=== PATIENT | male | born 1940 | race Caucasian/White ===

== ENCOUNTER 2020-02-17 08:03 | Outpatient (REF) | payer MEDICARE, SELFPAY ==
[2020-02-17 08:25] LABS: Basophils Absolute Auto 0.2 X10*3/uL (0.0-0.2); Basophils Percent Auto 1.4 % (0-2); Eosinophils Absolute Auto 0.4 X10*3/uL (0.0-0.4); Eosinophils Percent Auto 2.9 % (0-4); Hematocrit 45.7 % (42-52); Hemoglobin 13.7 g/dl (14.0-18.0); Imm Gran Abs Auto 0.14 X10*3/uL (0.00-0.03); Lymphocytes Absolute Auto 2.5 X10*3/uL (1.2-4.9); Lymphocytes Percent Auto 17.1 % (20-40); MANUAL DIFF FLAG NO; Mean Corpuscular Hemoglobin 23.3 pg (27.0-33.0); Mean Corpuscular Volume 77.7 fL (80-98); Mean Platelet Volume 9.9 fL (9.4-12.4); Monocytes Absolute Auto 1.1 X10*3/uL (0.1-1.2); Monocytes Percent Auto 7.5 % (2-11); Neutrophils Absolute Auto 10.3 X10*3/uL (2.0-8.3); Neutrophils Percent Auto 70.1 % (45-73); Platelet Count 560 X10*3/uL (160-400); Red Blood Count 5.88 X10*6/uL (4.60-5.80); Red Cell Distribution Width 19.2 % (11.0-16.0); White Blood Count 14.6 X10*3/uL (4.8-10.8)
== END 2020-02-17 08:04 | disposition home or self-care (01) ==
LOC: HO.BBR 08:03
PROVIDERS: Visit Provider Internal Medicine Medical Oncology
DX: D45 Polycythemia vera (principal)
CPT/HCPCS: 36415; 85018; 85025; 99195

== ENCOUNTER 2020-03-16 08:03 | Outpatient (REF) | payer MEDICARE, SELFPAY | END 2020-03-16 08:04 | disposition home or self-care (01) | LOC: HO.BBR 08:03 | PROVIDERS: PCP Internal Medicine; Visit Provider Internal Medicine | DX: D45 Polycythemia vera (principal) | CPT/HCPCS: 85014; 85018; 99195 ==

== ENCOUNTER → 2020-03-29 09:41 | Outpatient (BNVA) | payer MEDICARE, SELFPAY | PROVIDERS: PCP Internal Medicine; Visit Provider Urology | DX: Z85.51 Personal history of malignant neoplasm of bladder (principal) | CPT/HCPCS: 52000; 81002; 99212 ==

== ENCOUNTER 2020-03-30 14:38 | Outpatient (REF) | payer MEDICARE, SELFPAY ==
[2020-03-30 14:40] LABS: Urine Cytology See Pathology rpt
== END 2020-03-30 14:39 | disposition home or self-care (01) ==
LOC: HO.LNP 14:38
PROVIDERS: Visit Provider Urology
DX: C67.9 Malignant neoplasm of bladder, unspecified (principal)
CPT/HCPCS: 88112

== ENCOUNTER 2020-05-11 08:06 | Outpatient (REF) | payer MEDICARE, SELFPAY | END 2020-05-11 08:07 | disposition home or self-care (01) | LOC: HO.BBR 08:06 | PROVIDERS: Visit Provider Internal Medicine | DX: D45 Polycythemia vera (principal) | CPT/HCPCS: 85018; 99195 ==

== ENCOUNTER 2020-06-08 08:05 | Outpatient (REF) | payer MEDICARE, SELFPAY | END 2020-06-08 08:06 | disposition home or self-care (01) | LOC: HO.BBR 08:05 | PROVIDERS: Visit Provider Internal Medicine | DX: D45 Polycythemia vera (principal) | CPT/HCPCS: 85014; 85018; 99195 ==

== ENCOUNTER → 2020-06-28 09:54 | Outpatient (BNVA) | payer MEDICARE, SELFPAY | PROVIDERS: PCP Internal Medicine; Visit Provider Urology | DX: N39.0 Urinary tract infection, site not specified (principal) | CPT/HCPCS: 81002; 99212 ==

== ENCOUNTER 2020-07-01 13:46 | Outpatient (REF) | payer MEDICARE, SELFPAY ==
[2020-07-01 16:59] LABS: Anion Gap 19 (12-20); Blood Urea Nitrogen 25 mg/dL (9-16); Carbon Dioxide 19 mmol/L (22-29); Chloride 107 mmol/L (96-108); Estimated Glomerular Filt Rate 55; Potassium 5.5 mmol/L (3.3-5.1); Sodium 139 mmol/L (135-145)
== END 2020-07-01 13:47 | disposition home or self-care (01) ==
LOC: HO.HMGCLDS 13:46
PROVIDERS: PCP Internal Medicine; Visit Provider Internal Medicine
DX: I10 Essential (primary) hypertension (principal); E87.5 Hyperkalemia; N39.0 Urinary tract infection, site not specified
CPT/HCPCS: 36415; 80051; 82565; 84520; 87086

== ENCOUNTER 2020-07-06 08:50 | Outpatient (REF) | payer MEDICARE, SELFPAY | END 2020-07-06 08:51 | disposition home or self-care (01) | LOC: HO.BBR 08:50 | PROVIDERS: Visit Provider Internal Medicine | DX: D45 Polycythemia vera (principal) | CPT/HCPCS: 85018 ==

== ENCOUNTER 2020-07-13 12:48 | Outpatient (REF) | payer MEDICARE, SELFPAY ==
[2020-07-14 11:56] LABS: Urine Cytology See Pathology rpt
== END 2020-07-13 12:49 | disposition home or self-care (01) ==
LOC: CF 12:48
PROVIDERS: PCP Internal Medicine; Visit Provider Urology
DX: C67.9 Malignant neoplasm of bladder, unspecified (principal); N39.0 Urinary tract infection, site not specified; R35.1 Nocturia
CPT/HCPCS: 52000; 81002; 88112; 99212

== ENCOUNTER 2020-07-27 10:58 | Inpatient (IN) | payer MEDICARE, SELFPAY ==
[2020-07-27] VITALS (11 sets, daily range): BP systolic 131–167; BP diastolic 54–98; PULSE 50–69; RESP 18–21; TEMP -17.7–37; O2SAT 95–98; BMI 39.8
--- NOTE | ~2020-07-27 | XR_ITS ---
EXAMINATION: XR CHEST CLINICAL INFORMATION: SOB. COMPARISON: Chest 06/22/2019 TECHNIQUE: Frontal view of the chest was obtained. FINDINGS: No significant abnormality is noted involving the heart, lungs, mediastinum, bony thorax or soft tissues. XR/XR chest 1V IMPRESSION: Unremarkable chest examination.
--- NOTE | ~2020-07-27 | CT_ITS ---
EXAMINATION: CT ANGIOGRAM OF THE CHEST WITH AND WITHOUT CONTRAST (CT PULMONARY ANGIOGRAM FOR PE) CLINICAL INFORMATION: Reason for Exam sob COMPARISON: Previous chest x-ray from earlier the same day TECHNIQUE: Prior to contrast administration, noncontrast localization images were obtained. Subsequently, multidetector volumetric imaging was performed from the thoracic inlet to below the diaphragms following the administration of 71 mL Omnipaque 350 intravenous contrast. No contrast reaction reported Sagittal, coronal, and MIP oblique sagittal reformatted images were obtained on the CT workstation, uploaded to PACS, and reviewed. This CT examination was performed using dose optimization techniques as appropriate, variously including the following: *Automated exposure control *Adjustment of mA and/or kV according to patient size (this includes techniques or standardized protocols for targeted exams where dose is matched to indication/reason for exam; i.e. extremities or head) *Use of iterative reconstruction technique Total exam dose-length product 366 mGy-cm FINDINGS: QUALITY OF STUDY/CONTRAST BOLUS: Satisfactory. PULMONARY ARTERIES: No central or segmental pulmonary emboli. THORACIC AORTA: No aneurysm or dissection. LUNG: No focal consolidation, nodules or masses. There is bilateral central bronchial wall thickening, particularly in the lower lobes. PLEURA: No pleural effusion or pneumothorax. MEDIASTINUM: The heart is enlarged. No pericardial effusion. There is shotty mediastinal and bilateral hilar lymphadenopathy. Pulmonary arteries are prominent, main pulmonary artery measuring 3.2 cm questionable for pulmonary artery hypertension. No evidence of septal bowing or right heart strain. CHEST WALL/AXILLA: No axillary or internal mammary lymphadenopathy. OSSEOUS STRUCTURES: No acute or suspicious osseous abnormality. There are degenerative changes of the spine. UPPER ABDOMEN: There is calcification in the liver. The gallbladder has been removed. There may be diverticulosis of the colon.. No reflux of contrast into the hepatic veins to suggest elevated right heart pressures. CT/CT angio chest PE protocol IMPRESSION: No evidence of pulmonary embolism. Enlarged heart. Prominent pulmonary arteries questionable for pulmonary artery hypertension. Bilateral central bronchial wall thickening. Shotty bilateral hilar and mediastinal lymphadenopathy. VTE: negative
--- NOTE | 2020-07-27 11:31 | ED.SOB ---
HPI - SOB/Dyspnea General Chief Complaint: Extremity Problem Stated Complaint: leg swelling Time Seen by Provider: 07/27/20 11:23 Mode of arrival: ambulatory Limitations: no limitations History of Present Illness HPI Narrative: Patient has history of hypertension not on any diuretics been feeling increased shortness of breath for last 1 month sleeping on the recliner with increased leg edema specially for last 1 week, which is new for him. Patient is non alcoholic no kidney shows no coronary artery disease never had any chest pain. Patient denies any fever or cough no recent exposure to COVID MD elicited complaint: shortness of breath Onset (ago): week(s) (1) Related Data Home Medications Medication Instructions Recorded Confirmed aspirin 81 mg tablet,delayed 81 mg PO DAILY 03/30/20 07/27/20 release brimonidine [Alphagan P] 1 drp OPHTHALMIC-RIGHT TID 06/06/20 07/27/20 vit C,D-Wq-sqjiy-lutein-zeaxan 1 tab PO BID 06/06/20 07/27/20 [PreserVision AREDS-2] atenolol 50 mg tablet 50 mg PO DAILY 07/13/20 07/27/20 Previous Rx's Medication Instructions Recorded amlodipine 10 mg tablet 10 mg PO DAILY #90 tab 05/17/20 clonidine HCl 0.1 mg tablet 0.1 mg PO BEDTIME #90 tab 06/21/20 terazosin 5 mg capsule 5 mg PO BEDTIME #90 cap 07/13/20 Allergies Allergy/AdvReac Type Severity Reaction Status Date / Time No Known Allergies Allergy Verified 07/01/20 13:25 [No Known Allergies*] Review of Systems Review of Systems: Constitutional : No Weight loss, No Fever, No Chills ENT/Mouth : No sore throat, No Rhinorrhea Eyes: No Eye Pain, No Swelling Cardiovascular : No Chest Pain, no palpitations Respiratory : No Cough, No Sputum,+++ shortness of breath Gastrointestinal : no Nausea, No Vomiting, No Diarrhea, No abdominal Pain, no black stools Genitourinary : No Dysuria, No Urinary Frequency Musculoskeletal : No joint pain, No Myalgias, No Joint Swelling , leg edema++ Skin : No Skin Lesions, No rash Neuro : No Weakness, No Numbness, No Dizziness, No Headache Psych : No Anxiety/Panic, No Depression Heme/Lymph: No Bruising, No Lymphadenopathy Endocrine : No Polyuria, No Polydipsia All other systems reviewed and are negative [facility] Past Medical History Medical History (Updated 07/27/20 @ 15:20 by Colt Uribe MD) Bladder cancer Glaucoma Hypertension, essential Obesity P. vera Surgical History History of tonsillectomy Hx of cholecystectomy Family History Family History Father Cancer Mother CVD (cardiovascular disease) Brother No problems noted. Social History Social History Alcohol intake: current Alcohol intake frequency: holidays/special occasions only Smoking Status: Never smoker Use of substances other than those prescribed or required for medical reasons: No Advance Directives: Yes Advance Directives on File: Yes Advance Directives Date on File: 07/27/20 Physical Exam Vital Signs: Vital Signs: Last Vital Signs Temp 97.6 F 07/27/20 15:16 Pulse 59 07/27/20 15:16 Resp 20 07/27/20 15:16 BP 154/54 H 07/27/20 15:16 Pulse Ox 97 07/27/20 15:16 Body Mass Index 39.8 Const: General: cooperative, no acute distress and well developed Nutritional Appearance: obese Orientation/consciousness: patient oriented x3 HENMT: Head: Yes normocephalic and Yes atraumatic Ears: hearing grossly normal bilaterally General nose exam: Normal external nose present Mouth: Normal oral and palatal mucosa present Eyes: General: appearance normal, both eyes and all related structures Conjunctivae: conjunctivae normal Sclerae: sclerae normal Neck: Neck: Yes normal visual inspection and Yes no lymphadenopathy Chest: Chest palpation & inspection: normal palpation of entire chest wall Resp: Effort & Inspection: normal respiratory effort and able to speak in complete sentences Auscultation: crackles, rales, no rhonchi, no wheezes and diminished lung sounds Cardio: Palpation: normal PMI Rate: regular rate Rhythm: regular rhythm Heart sounds: S1 normal heart sound present, S2 normal heart sound present and no murmurs Peripheral pulses: Peripheral pulses 2+ throughout GI: Inspection: Yes normal to inspection Palpation (GI): Soft to palpation Auscultation: normal bowel sounds : General: Yes no CVA tenderness Back/Spine/Pelvis: Back: no CVA tenderness Thoracic/Lumbar Spine: thoracic and lumbar spine normal to inspection Skin: General skin exam: erythema (b/l le) Neuro: General: patient oriented x3 and no focal motor deficits Extrem: General: Yes full ROM, Yes no calf tenderness and Yes pedal edema (4++ B/L) MDM - SOB/Dyspnea MDM Narrative Medical decision making narrative: Patient with increased leg swelling and exertion shortness of breath able to sleep in the night with PND possible he has sleep apnea with his short neck and obesity but never been evaluated, BNP is elevated chest x-ray is negative for any acute infiltrate will admit patient for new onset CHF possible secondary to sleep apnea, will give him IV diuretics for now Differential Diagnosis Differential diagnosis: Likely congestive heart failure and sleep apnea Lab Data Attestation: I reviewed the patient's lab results. Result diagrams: 07/27/20 11:41 07/27/20 11:41 Labs: Lab Results 07/27/20 07/27/20 07/27/20 Range/Units 11:41 11:41 11:41 WBC 14.1 H (4.8-10.8) X10*3/uL RBC 5.44 (4.60-5.80) X10*6/uL Hgb 12.1 L (14.0-18.0) g/dl Hct 41.2 L (42-52) % MCV 75.7 L (80-98) fL MCH 22.2 L (27.0-33.0) pg MCHC 29.4 L (31.0-36.0) g/dl RDW 20.5 H (11.0-16.0) % Plt Count 530 H (160-400) X10*3/uL MPV 10.0 (9.4-12.4) fL Immature Gran % (Auto) 0.9 H (0.0-0.4) % Neut % (Auto) 73.1 H (45-73) % Lymph % (Auto) 12.9 L (20-40) % [place] % (Auto) 8.1 (2-11) % Eos % (Auto) 4.0 (0-4) % Baso % (Auto) 1.0 (0-2) % Lymph # (Auto) 1.8 (1.2-4.9) X10*3/uL [place] # (Auto) 1.1 (0.1-1.2) X10*3/uL Eos # (Auto) 0.6 H (0.0-0.4) X10*3/uL Baso # (Auto) 0.1 (0.0-0.2) X10*3/uL Abs Immat Gran (auto) 0.13 H (0.00-0.03) X10*3/uL Absolute Neuts (auto) 10.3 H (2.0-8.3) X10*3/uL Absolute Nucleated RBC 0.000 (0.0-0.012) X10*3/uL Nucleated RBC % (auto) 0.0 (0.0-0.2) /100WBC PT 15.5 H (10.8-13.0) SEC INR 1.3 H (0.9-1.1) APTT 32.8 (24.1-38.0) SEC Sodium 140 (135-145) mmol/L Potassium 4.9 (3.3-5.1) mmol/L Chloride 107 (96-108) mmol/L Carbon Dioxide 26 (22-29) mmol/L Anion Gap 12 (12-20) BUN 22 H (9-16) mg/dL Creatinine 0.92 (0.5-1.4) mg/dL Estim Creat Clear Calc 76.5 Estimated GFR > 60 Random Glucose 100 (60-115) mg/dL Lactic Acid (0.5-2.0) mmol/L Calcium 8.8 (8.4-10.2) mg/dL Total Bilirubin 0.7 (0.0-1.0) mg/dL Direct Bilirubin 0.3 (0.0-0.5) mg/dL AST 24 (5-37) U/L ALT 25 (0-40) U/L Alkaline Phosphatase 111 (39-117) U/L Troponin I High Sens (<3.5-35.0) ng/L B-Natriuretic Peptide (<100) pg/mL Total Protein 6.4 L (6.5-8.0) g/dL Albumin 3.8 (3.5-5.0) g/dL COVID-19 ([facility]) (Negative) COVID-19 Clin Com 07/27/20 07/27/20 07/27/20 Range/Units 11:41 12:07 13:57 WBC (4.8-10.8) X10*3/uL RBC (4.60-5.80) X10*6/uL Hgb (14.0-18.0) g/dl Hct (42-52) % MCV (80-98) fL MCH (27.0-33.0) pg MCHC (31.0-36.0) g/dl RDW (11.0-16.0) % Plt Count (160-400) X10*3/uL MPV (9.4-12.4) fL Immature Gran % (Auto) (0.0-0.4) % Neut % (Auto) (45-73) % Lymph % (Auto) (20-40) % [place] % (Auto) (2-11) % Eos % (Auto) (0-4) % Baso % (Auto) (0-2) % Lymph # (Auto) (1.2-4.9) X10*3/uL [place] # (Auto) (0.1-1.2) X10*3/uL Eos # (Auto) (0.0-0.4) X10*3/uL Baso # (Auto) (0.0-0.2) X10*3/uL Abs Immat Gran (auto) (0.00-0.03) X10*3/uL Absolute Neuts (auto) (2.0-8.3) X10*3/uL Absolute Nucleated RBC (0.0-0.012) X10*3/uL Nucleated RBC % (auto) (0.0-0.2) /100WBC PT (10.8-13.0) SEC INR (0.9-1.1) APTT (24.1-38.0) SEC Sodium (135-145) mmol/L Potassium (3.3-5.1) mmol/L Chloride (96-108) mmol/L Carbon Dioxide (22-29) mmol/L Anion Gap (12-20) BUN (9-16) mg/dL Creatinine (0.5-1.4) mg/dL Estim Creat Clear Calc Estimated GFR Random Glucose (60-115) mg/dL Lactic Acid 2.0 (0.5-2.0) mmol/L Calcium (8.4-10.2) mg/dL Total Bilirubin (0.0-1.0) mg/dL Direct Bilirubin (0.0-0.5) mg/dL AST (5-37) U/L ALT (0-40) U/L Alkaline Phosphatase (39-117) U/L Troponin I High Sens 6.1 (<3.5-35.0) ng/L B-Natriuretic Peptide 534 H (<100) pg/mL Total Protein (6.5-8.0) g/dL Albumin (3.5-5.0) g/dL COVID-19 ([facility]) Negative (Negative) COVID-19 Clin Com See Note ECG Data Attestation: I personally reviewed and interpreted this ECG as follows: Interpretation: sinus bradycardia with heart rate 54 beats per minutes normal axis no acute ST T wave changes normal intervals no acute ischemia Discharge Plan Discharge Clinical Impression: Congestive heart failure Qualifiers: Heart failure type: systolic Heart failure chronicity: acute Qualified Code(s): I50.21 - Acute systolic (congestive) heart failure Patient Disposition: Admitted As Inpatient
--- NOTE | 2020-07-27 11:32 | ECG_ITS ---
Test Reason : WEAK Blood Pressure : / mmHG Vent. Rate : 054 BPM Atrial Rate : 033 BPM P-R Int : 152 ms QRS Dur : 084 ms QT Int : 430 ms P-R-T Axes : 000 -03 007 degrees QTc Int : 407 ms Normal sinus rhythm Nonspecific ST abnormality Abnormal ECG When compared with ECG of 30-MAY-2006 11:36, Nonspecific ST abnormality present Referred By: Colt Uribe Electronically Signed By:TAINA GRIFFIN MD
[2020-07-27 11:47] LABS: MANUAL DIFF FLAG NO
[2020-07-27 11:49] LABS: Basophils Absolute Auto 0.1 X10*3/uL (0.0-0.2); Eosinophils Absolute Auto 0.6 X10*3/uL (0.0-0.4); Hematocrit 41.2 % (42-52); Hemoglobin 12.1 g/dl (14.0-18.0); Imm Gran Abs Auto 0.13 X10*3/uL (0.00-0.03); Imm Gran Pct Auto 0.9 % (0.0-0.4); Lymphocytes Absolute Auto 1.8 X10*3/uL (1.2-4.9); Lymphocytes Percent Auto 12.9 % (20-40); Mean Corpuscular HGB Conc 29.4 g/dl (31.0-36.0); Mean Corpuscular Hemoglobin 22.2 pg (27.0-33.0); Mean Corpuscular Volume 75.7 fL (80-98); Monocytes Absolute Auto 1.1 X10*3/uL (0.1-1.2); Monocytes Percent Auto 8.1 % (2-11); Neutrophils Absolute Auto 10.3 X10*3/uL (2.0-8.3); Neutrophils Percent Auto 73.1 % (45-73); Platelet Count 530 X10*3/uL (160-400); Red Blood Count 5.44 X10*6/uL (4.60-5.80); Red Cell Distribution Width 20.5 % (11.0-16.0); White Blood Count 14.1 X10*3/uL (4.8-10.8)
[2020-07-27 12:00] LABS: INTERNATIONAL NORM RATIO 1.3 (0.9-1.1); Prothrombin Time 15.5 SEC (10.8-13.0)
[2020-07-27 12:02] LABS: Partial Thromboplastin Time 32.8 SEC (24.1-38.0)
[2020-07-27 12:14] LABS: Alanine Aminotransferase 25 U/L (0-40); Albumin Level 3.8 g/dL (3.5-5.0); Alkaline Phosphatase 111 U/L (39-117); Anion Gap 12 (12-20); Aspartate Amino Transferase 24 U/L (5-37); Bilirubin Direct 0.3 mg/dL (0.0-0.5); Bilirubin Total 0.7 mg/dL (0.0-1.0); Blood Urea Nitrogen 22 mg/dL (9-16); Calcium 8.8 mg/dL (8.4-10.2); Carbon Dioxide 26 mmol/L (22-29); Chloride 107 mmol/L (96-108); Creatinine Clr Calc Pharmacy 76.5; Estimated Glomerular Filt Rate > 60; Glucose Random 100 mg/dL (60-115); Potassium 4.9 mmol/L (3.3-5.1); Sodium 140 mmol/L (135-145); Total Protein 6.4 g/dL (6.5-8.0)
[2020-07-27 12:18] LABS: B Type Natriuretic Peptide 534 pg/mL (<100); Troponin-I High Sensitivity 6.1 ng/L (<3.5-35.0)
--- NOTE | 2020-07-27 13:04 | PC.NURSE ---
lungs - glenroy lower bases crackles. no sob/cathy noted.
[2020-07-27] MEDS: Furosemide 20 MG/2 ML VIAL IVPUSH (13:58)
[2020-07-27 14:21] LABS: COVID-19 Test Negative (Negative)
--- NOTE | 2020-07-27 15:33 | PC.NURSE ---
URINAL OUTPUT 650ML OF CLEAR YELLOW URINE. AWARE.
--- NOTE | 2020-07-27 16:58 | PC.NURSE ---
600 cc emptied from urinal
--- NOTE | 2020-07-27 17:43 | PC.NURSE ---
hosp p (reba) at bedside, pt aware of plan of are for admission to hosp. pt's brother has left for home.
--- NOTE | 2020-07-27 18:07 | PC.NURSE ---
emptied 225 cc from urinal. pt is eating sandwhich
--- NOTE | 2020-07-27 18:15 | P.HPHOSP_ITS ---
History of Present Illness Date of Service: 07/27/20 Chief Complaint: Leg edema 80 year old man presenting with leg swelling over the last several weeks. 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 He denied Chest pain, shortness of breath. He slee ps in his chair because he coughs when he lays in his bed. He is not on diuretics at home and it doesn't appear that he has a history of CHF. His BNP was noted to be elevated at 534. He was not noted to be hypoxic and is not on home oxygen. He was given IV lasix in the ED and will be admitted for further management of CHF. Review of Systems Review of Systems: Denies any recent fever chills or decrease in appetite respiratory denies any shortness of breath coverage production cardiovascular See above gastrointestinal denies any dysphagia abdominal pain nausea vomiting or diarrhea genitourinary denies any dysuria frequency or hematuria musculoskeletal denies any joint pain or swelling neuropsych denies any weakness or seizures all other systems reviewed are negative [facility] Medical History (Updated 07/27/20 @ 18:35 by Elma Reece NP) Bladder cancer Glaucoma Hypertension, essential JAK2 gene mutation Obesity P. vera Urothelial cancer Family History Father Cancer Mother CVD (cardiovascular disease) Brother No problems noted. Surgical History (Updated 07/27/20 @ 18:33 by Elma Reece NP) H/O cystoscopy History of tonsillectomy Hx of cholecystectomy Social History Alcohol intake: current Alcohol intake frequency: holidays/special occasions only Smoking Status: Never smoker Use of substances other than those prescribed or required for medical reasons: No Advance Directives: Yes Advance Directives on File: Yes Advance Directives Date on File: 07/27/20 Meds Allergies Allergy/AdvReac Type Severity Reaction Status Date / Time No Known Allergies Allergy Verified 07/01/20 13:25 [No Known Allergies*] Active Medications: Current Medications Generic Name Dose Route Start Last Admin Trade Name Freq PRN Reason Stop Dose Admin Acetaminophen 650 mg 07/27/20 17:59 Acetaminophen 325 Mg Tablet PO Q6H PRN Pain, Mild (Pain Scale 1-3) Amlodipine Besylate 10 mg 07/28/20 09:00 Amlodipine Besylate 10 Mg Tablet PO DAILY [facility] Protocol Aspirin 81 mg 07/28/20 09:00 Aspirin Enteric Coated 81 Mg Tablet.Dr PO DAILY [facility] Clonidine HCl 0.1 mg 07/27/20 21:00 Clonidine Hcl 0.1 Mg Tablet PO BEDTIME [facility] Protocol Doxazosin Mesylate 4 mg 07/27/20 21:00 Doxazosin Mesylate 2 Mg Tablet PO BEDTIME [facility] Furosemide 40 mg 07/28/20 02:00 Furosemide 40 Mg/4 Ml Vial IVPUSH Q12H [facility] Protocol Non-Formulary Medication 1 drop 07/27/20 21:00 Brimonidine [Alphagan P] EYE-RIGHT TID [facility] Non-Formulary Medication 1 tab 07/27/20 21:00 Vit C,Z-Ap-Xyany-Lutein-Zeaxan [Preservision Areds-2] PO BID [facility] Ondansetron HCl 4 mg 07/27/20 17:59 Ondansetron Hcl 4 Mg/2 Ml Vial IVPUSH Q8H PRN Nausea and Vomiting Sodium Chloride 3 ml 07/28/20 00:00 0.9 % Sodium Chloride Flush 3 Ml Syringe IVFLUSH QSHIFT [facility] Home Medications Medication Instructions Recorded Confirmed Last Taken Type aspirin 81 mg tablet,delayed 81 mg PO DAILY 03/30/20 07/27/20 Unknown History release brimonidine [Alphagan P] 1 drp OPHTHALMIC-RIGHT TID 06/06/20 07/27/20 Unknown History vit C,E-Kc-bhshi-lutein-zeaxan 1 tab PO BID 06/06/20 07/27/20 Unknown History [PreserVision AREDS-2] atenolol 50 mg tablet 50 mg PO DAILY 07/13/20 07/27/20 Unknown History Physical Exam Vital Signs and Narrative: Vital Signs: Last Vital Signs Temp 97.7 F 07/27/20 17:41 Pulse 60 07/27/20 17:41 Resp 19 07/27/20 17:41 BP 150/98 H 07/27/20 17:41 Pulse Ox 96 07/27/20 17:41 Body Mass Index 39.8 Appearing in no acute distress head is normocephalic atraumatic eyes pupils are PERRLA sclera is anicteric mouth throat mucous membranes are intact and moist neck is supple no lymphadenopathy, no JVD noted lung sounds faint rales heart regular rate rhythm, clear S1, S2 positive bowel sounds, abdomen is soft, nontender neuro patient is alert x3, no focal deficits Results Labs CBC and Chem 7: 07/27/20 11:41 07/27/20 11:41 Labs: Laboratory Results - last 24 hr 07/27/20 07/27/20 07/27/20 11:41 11:41 11:41 MCV 75.7 L MCH 22.2 L MCHC 29.4 L RDW 20.5 H Plt Count 530 H MPV 10.0 Immature Gran % (Auto) 0.9 H Neut % (Auto) 73.1 H Lymph % (Auto) 12.9 L [place] % (Auto) 8.1 Eos % (Auto) 4.0 Baso % (Auto) 1.0 Lymph # (Auto) 1.8 [place] # (Auto) 1.1 Eos # (Auto) 0.6 H Baso # (Auto) 0.1 Abs Immat Gran (auto) 0.13 H Absolute Neuts (auto) 10.3 H Absolute Nucleated RBC 0.000 Nucleated RBC % (auto) 0.0 PT 15.5 H INR 1.3 H APTT 32.8 Anion Gap 12 Estim Creat Clear Calc 76.5 Estimated GFR > 60 Random Glucose 100 Lactic Acid Calcium 8.8 Total Bilirubin 0.7 Direct Bilirubin 0.3 AST 24 ALT 25 Alkaline Phosphatase 111 Troponin I High Sens B-Natriuretic Peptide Total Protein 6.4 L Albumin 3.8 COVID-19 ([facility]) COVID-19 Clin Com 07/27/20 07/27/20 07/27/20 11:41 12:07 13:57 MCV MCH MCHC RDW Plt Count MPV Immature Gran % (Auto) Neut % (Auto) Lymph % (Auto) [place] % (Auto) Eos % (Auto) Baso % (Auto) Lymph # (Auto) [place] # (Auto) Eos # (Auto) Baso # (Auto) Abs Immat Gran (auto) Absolute Neuts (auto) Absolute Nucleated RBC Nucleated RBC % (auto) PT INR APTT Anion Gap Estim Creat Clear Calc Estimated GFR Random Glucose Lactic Acid 2.0 Calcium Total Bilirubin Direct Bilirubin AST ALT Alkaline Phosphatase Troponin I High Sens 6.1 B-Natriuretic Peptide 534 H Total Protein Albumin COVID-19 ([facility]) Negative COVID-19 Clin Com See Note Imaging Radiologist's Impressions: Impressions Chest X-Ray 07/27/20 11:34 IMPRESSION: Unremarkable chest examination. Chest CTA 07/27/20 13:43 IMPRESSION: No evidence of pulmonary embolism. Enlarged heart. Prominent pulmonary arteries questionable for pulmonary artery hypertension. Bilateral central bronchial wall thickening. Shotty bilateral hilar and mediastinal lymphadenopathy. VTE: negative Assessment and Plan (1) Congestive heart failure: Qualifiers: Heart failure chronicity: acute Heart failure type: systolic Qualified Code(s): I50.21 - Acute systolic (congestive) heart failure Status: Acute 80 year old man admitted with heart failure. His brother noted that he had some leg swelling and brought him to the ED. He doesn't have a history of CHF and is not on diuretics at home. CHF. New onset -IV lasix -Echocardiogram -Cardiology consultation -Daily weights, I&O's. Hypertension -Continue amlodipine and atenolol. BPH hx of bladder cancer -Continue Terazosin. DVT prophylaxis with Lovenox Attending: Dr. Sifuentes Full code
--- NOTE | 2020-07-27 18:42 | PC.NURSE ---
pt ate 60% of supper
--- NOTE | 2020-07-27 19:57 | PC.NURSE ---
pt remains alert, respirations easy, n/l. pt using the urinal at this time. Pt denies any complaints and remains on monitor. pt awaiting for further orders.
--- NOTE | 2020-07-27 21:26 | PC.NURSE ---
REPORT GIVEN TO FLOOR AT THIS TIME. PT AWAITING FOR TRANSFER TO ROOM. PT LEAVING ED IN NAD. HL FLUSHES EASILY W/O DIFFICULTY. SITE INTACT.
[2020-07-27] MEDS: Doxazosin Mesylate 2 MG TABLET 4 MG PO (22:48)
[2020-07-27] MEDS: cloNIDine HCL 0.1 MG TABLET PO (22:49)
[2020-07-27] MEDS: 0.9 % Sodium Chloride Flush 3 ML SYRINGE IVFLUSH (22:49)
[2020-07-27] MEDS: Enoxaparin Sodium 40 MG/0.4 ML SYRINGE SUBCUT (22:49)
[2020-07-28] VITALS (7 sets, daily range): BP systolic 128–159; BP diastolic 47–73; PULSE 6–69; RESP 18–20; TEMP 36–37; O2SAT 92–96; BMI 39.8
[2020-07-28] MEDS: Furosemide 40 MG/4 ML VIAL IVPUSH ×2 (02:11→16:13)
[2020-07-28 06:27] LABS: MANUAL DIFF FLAG NO
[2020-07-28 06:43] LABS: Basophils Absolute Auto 0.1 X10*3/uL (0.0-0.2); Basophils Percent Auto 0.8 % (0-2); Eosinophils Absolute Auto 0.4 X10*3/uL (0.0-0.4); Eosinophils Percent Auto 2.9 % (0-4); Hematocrit 40.5 % (42-52); Hemoglobin 12.1 g/dl (14.0-18.0); Imm Gran Abs Auto 0.23 X10*3/uL (0.00-0.03); Imm Gran Pct Auto 1.6 % (0.0-0.4); Lymphocytes Absolute Auto 1.2 X10*3/uL (1.2-4.9); Lymphocytes Percent Auto 8.2 % (20-40); Mean Corpuscular HGB Conc 29.9 g/dl (31.0-36.0); Mean Corpuscular Hemoglobin 22.1 pg (27.0-33.0); Mean Platelet Volume 10.2 fL (9.4-12.4); Monocytes Absolute Auto 0.9 X10*3/uL (0.1-1.2); Monocytes Percent Auto 6.2 % (2-11); Neutrophils Absolute Auto 11.7 X10*3/uL (2.0-8.3); Neutrophils Percent Auto 80.3 % (45-73); Platelet Count 570 X10*3/uL (160-400); Red Blood Count 5.47 X10*6/uL (4.60-5.80); Red Cell Distribution Width 20.3 % (11.0-16.0); White Blood Count 14.6 X10*3/uL (4.8-10.8)
[2020-07-28 07:03] LABS: B Type Natriuretic Peptide 591 pg/mL (<100)
[2020-07-28 07:05] LABS: Anion Gap 14 (12-20); Blood Urea Nitrogen 24 mg/dL (9-16); Calcium 8.9 mg/dL (8.4-10.2); Carbon Dioxide 26 mmol/L (22-29); Chloride 106 mmol/L (96-108); Creatinine Clr Calc Pharmacy 62.8; Estimated Glomerular Filt Rate > 60; Glucose Random 100 mg/dL (60-115); Potassium 5.1 mmol/L (3.3-5.1); Sodium 141 mmol/L (135-145)
[2020-07-28] MEDS: Aspirin Enteric Coated 81 MG TABLET.DR PO (08:53)
[2020-07-28] MEDS: amLODIPine Besylate 10 MG TABLET PO (08:54)
[2020-07-28] MEDS: 0.9 % Sodium Chloride Flush 3 ML SYRINGE IVFLUSH ×3 (08:55→21:48)
--- NOTE | 2020-07-28 11:01 | MHC.CM.PN ---
Addendum entered by Olya Rangel 07/28/20 11:17: IMM addressed with patient and his brother Delvis. Original Note: CM met with patient and patient's brother/HCP Delvis [phone] who reports patient is independent and lives alone. Brother does check on patient daily and provides assistance with shopping and meds. Discussed discharge plan, home no services. Delvis will provide transport. CM will continue to follow patient for discharge needs.
--- NOTE | 2020-07-28 11:38 | P.CONCA_ITS ---
History of Present Illness History of Present Illness Date of Service: 07/28/20 Consult reason: congestive heart failure Chief complaint: CHF Narrative: Thank you for calling us on consultation on Vaibhav for new onset congestive heart failure. He is a pleasant 80-year-old male with longstanding history of hypertension, polycythemia vera, bladder cancer and obesity. He was referred to the emergency room by his brother because he noticed leg edema, he said he only notices for the last 2 days but patient thinks that he might have had leg edema for about 2 weeks. He said he cannot see his legs because he is legally blind but was getting itchy in his legs. He has not complained of any heaviness. Brother is noted him to get exertionally short of breath for the last few months. He has also noticed that he was not able to lay flat and was sleeping in the recliner for the last couple of months as he would get cough. Patient denies any chest pain, palpitations, lightheadedness, syncope. Came to the hospital yesterday noted to have fluid overload and elevated BNP consistent with congestive heart failure. No acute signs of ischemia. Review of Systems Constitutional: Constitutional: Reports no additional constitutional comp laints Cardiovascular: Cardiovascular: Denies chest pain, Denies syncope, Reports leg edema, Denies lightheadedness, Denies palpitations, Reports dyspnea on exertion and Reports other (Cough when laying down) Respiratory: Respiratory: Reports cough (With lying down) and Reports dyspnea on exertion Gastrointestinal: Gastrointestinal: Reports no additional gastrointestinal complaints Genitourinary: Genitourinary: Reports no additional male genitourinary complaints Musculoskeletal: Musculoskeletal: Reports no additional musculoskeletal com plaints Neurologic: Reports system reviewed and no additional complaints, except as documented and Denies syncope Psychiatric: Psychiatric: Reports no additional psychiatric complaints Endocrine: Endocrine: Reports no additional endocrine complaints and Denies palpitations PMFSH Past Medical History Medical History (Updated 07/27/20 @ 18:35 by Elma Reece NP) Bladder cancer Glaucoma Hypertension, essential JAK2 gene mutation Obesity P. vera Urothelial cancer Family History Family History Father Cancer Mother CVD (cardiovascular disease) Brother No problems noted. Surgical History Surgical History (Updated 07/27/20 @ 18:33 by Elma Reece NP) H/O cystoscopy History of tonsillectomy Hx of cholecystectomy Social History Social History Household Members: None Housing: House Do you presently have visiting nurse or other home services: No Alcohol intake: current Alcohol intake frequency: holidays/special occasions only Smoking Status: Former smoker Use of substances other than those prescribed or required for medical reasons: No Currently Displaying Signs/Symptoms of Drug Intoxication Withdrawal: No Have you been hit, kicked, punched, or otherwise hurt by someone within the past year? If so, by whom?: No Do you feel safe in your current relationship?: No Current Relationship Is there a partner from a previous relationship who is making you feel unsafe now?: No Are you made to feel afraid or neglected: No Advance Directives: Yes Advance Directives on File: Yes Advance Directives Date on File: 07/27/20 Do you have thoughts of harming others: None Do you have a plan to hurt others: No Plan Recently lost weight without trying: No service: No Current occupational status: retired [employer] Allergies Allergy/AdvReac Type Severity Reaction Status Date / Time No Known Allergies Allergy Verified 07/01/20 13:25 [No Known Allergies*] Active Medications: Current Medications Generic Name Dose Route Start Last Admin Trade Name Freq PRN Reason Stop Dose Admin Acetaminophen 650 mg 07/27/20 17:59 Acetaminophen 325 Mg Tablet PO Q6H PRN Pain, Mild (Pain Scale 1-3) Amlodipine Besylate 10 mg 07/28/20 09:00 07/28/20 08:54 Amlodipine Besylate 10 Mg Tablet PO 10 mg DAILY BIA Administration Protocol Aspirin 81 mg 07/28/20 09:00 07/28/20 08:53 Aspirin Enteric Coated 81 Mg Tablet. PO 81 mg DAILY BIA Administration Clonidine HCl 0.1 mg 07/27/20 21:00 07/27/20 22:49 Clonidine Hcl 0.1 Mg Tablet PO 0.1 mg BEDTIME BIA Administration Protocol Doxazosin Mesylate 4 mg 07/27/20 21:00 07/27/20 22:48 Doxazosin Mesylate 2 Mg Tablet PO 4 mg BEDTIME BIA Administration Enoxaparin Sodium 40 mg 07/27/20 19:00 07/27/20 22:49 Enoxaparin Sodium 40 Mg/0.4 Ml Syringe SUBCUT 40 mg Q24H BIA Administration Furosemide 40 mg 07/28/20 02:00 07/28/20 02:11 Furosemide 40 Mg/4 Ml Vial IVPUSH 40 mg Q12H BIA Administration Protocol Multivitamins/Minerals 1 tab 07/28/20 09:00 07/28/20 08:54 Vits A,C,E/Lutein/Minerals Tablet PO 1 tab DAILY BIA Administration Non-Formulary Medication 1 drop 07/27/20 21:00 Brimonidine [Alphagan P] EYE-RIGHT TID [facility] Ondansetron HCl 4 mg 07/27/20 17:59 Ondansetron Hcl 4 Mg/2 Ml Vial IVPUSH Q8H PRN Nausea and Vomiting Sodium Chloride 3 ml 07/28/20 00:00 07/28/20 08:55 0.9 % Sodium Chloride Flush 3 Ml Syringe IVFLUSH 3 ml QSHIFT BIA Administration Home Medications Medication Instructions Recorded Confirmed Last Taken Type aspirin 81 mg tablet,delayed 81 mg PO DAILY 03/30/20 07/27/20 Unknown History release brimonidine [Alphagan P] 1 drp OPHTHALMIC-RIGHT TID 06/06/20 07/27/20 Unknown History vit C,S-Bu-sxfpr-lutein-zeaxan 1 tab PO BID 06/06/20 07/27/20 Unknown History [PreserVision AREDS-2] atenolol 50 mg tablet 50 mg PO DAILY 07/13/20 07/27/20 Unknown History Physical Exam Vital Signs: Vital Signs: Last Vital Signs Temp 97.9 F 07/28/20 11:17 Pulse 6 L 07/28/20 11:17 Resp 20 07/28/20 11:17 BP 138/47 L 07/28/20 11:17 Pulse Ox 96 07/28/20 11:17 Body Mass Index 39.8 Const: General: cooperative, comfortable, no acute distress, alert and awake Nutritional Appearance: obese Orientation/consciousness: patient oriented x3 HENMT: Head: Yes normocephalic and Yes atraumatic Neck: Neck: Yes trachea midline, Yes supple and Yes JVD Resp: Effort & Inspection: normal respiratory effort Auscultation: clear to auscultation bilaterally Cardio: Jugular venous distension: JVD Palpation: normal PMI Rate: regular rate Rhythm: regular rhythm Heart sounds: S1 normal heart sound present, S2 normal heart sound present and Other heart sounds present (S4 present) GI: Inspection: Yes obesity Auscultation: normal bowel sounds Skin: General skin exam: no rashes or lesions noted Neuro: General: patient oriented x3 and no focal motor deficits Extrem: General: No clubbing, No cyanosis and Yes edema Psych: Appearance: grossly normal Results Labs and Meds Result diagrams: 07/28/20 06:00 07/28/20 06:01 Lab results: Laboratory Results - last 24 hr 07/27/20 07/27/20 07/27/20 11:41 11:41 11:41 WBC 14.1 H RBC 5.44 Hgb 12.1 L Hct 41.2 L MCV 75.7 L MCH 22.2 L MCHC 29.4 L RDW 20.5 H Plt Count 530 H MPV 10.0 Immature Gran % (Auto) 0.9 H Neut % (Auto) 73.1 H Lymph % (Auto) 12.9 L Foard % (Auto) 8.1 Eos % (Auto) 4.0 Baso % (Auto) 1.0 Lymph # (Auto) 1.8 Foard # (Auto) 1.1 Eos # (Auto) 0.6 H Baso # (Auto) 0.1 Abs Immat Gran (auto) 0.13 H Absolute Neuts (auto) 10.3 H Absolute Nucleated RBC 0.000 Nucleated RBC % (auto) 0.0 PT 15.5 H INR 1.3 H APTT 32.8 Sodium 140 Potassium 4.9 Chloride 107 Carbon Dioxide 26 Anion Gap 12 BUN 22 H Creatinine 0.92 Estim Creat Clear Calc 76.5 Estimated GFR > 60 Random Glucose 100 Lactic Acid Calcium 8.8 Total Bilirubin 0.7 Direct Bilirubin 0.3 AST 24 ALT 25 Alkaline Phosphatase 111 Troponin I High Sens B-Natriuretic Peptide Total Protein 6.4 L Albumin 3.8 COVID-19 ([facility]) COVID-19 Clin Com 07/27/20 07/27/20 07/27/20 11:41 12:07 13:57 WBC RBC Hgb Hct MCV MCH MCHC RDW Plt Count MPV Immature Gran % (Auto) Neut % (Auto) Lymph % (Auto) Foard % (Auto) Eos % (Auto) Baso % (Auto) Lymph # (Auto) Foard # (Auto) Eos # (Auto) Baso # (Auto) Abs Immat Gran (auto) Absolute Neuts (auto) Absolute Nucleated RBC Nucleated RBC % (auto) PT INR APTT Sodium Potassium Chloride Carbon Dioxide Anion Gap BUN Creatinine Estim Creat Clear Calc Estimated GFR Random Glucose Lactic Acid 2.0 Calcium Total Bilirubin Direct Bilirubin AST ALT Alkaline Phosphatase Troponin I High Sens 6.1 B-Natriuretic Peptide 534 H Total Protein Albumin COVID-19 ([facility]) Negative COVID-19 Clin Com See Note 07/28/20 07/28/20 07/28/20 06:00 06:00 06:01 WBC 14.6 H RBC 5.47 Hgb 12.1 L Hct 40.5 L MCV 74.0 L MCH 22.1 L MCHC 29.9 L RDW 20.3 H Plt Count 570 H MPV 10.2 Immature Gran % (Auto) 1.6 H Neut % (Auto) 80.3 H Lymph % (Auto) 8.2 L Foard % (Auto) 6.2 Eos % (Auto) 2.9 Baso % (Auto) 0.8 Lymph # (Auto) 1.2 Foard # (Auto) 0.9 Eos # (Auto) 0.4 Baso # (Auto) 0.1 Abs Immat Gran (auto) 0.23 H Absolute Neuts (auto) 11.7 H Absolute Nucleated RBC 0.000 Nucleated RBC % (auto) 0.0 PT INR APTT Sodium 141 Potassium 5.1 Chloride 106 Carbon Dioxide 26 Anion Gap 14 BUN 24 H Creatinine 1.12 Estim Creat Clear Calc 62.8 Estimated GFR > 60 Random Glucose 100 Lactic Acid Calcium 8.9 Total Bilirubin Direct Bilirubin AST ALT Alkaline Phosphatase Troponin I High Sens B-Natriuretic Peptide 591 H Total Protein Albumin COVID-19 ([facility]) COVID-19 Clin Com EKG shows normal sinus rhythm with no acute ischemic changes Imaging Radiologist's impression: Impressions Chest X-Ray 07/27/20 11:34 IMPRESSION: Unremarkable chest examination. Chest CTA 07/27/20 13:43 IMPRESSION: No evidence of pulmonary embolism. Enlarged heart. Prominent pulmonary arteries questionable for pulmonary artery hypertension. Bilateral central bronchial wall thickening. Shotty bilateral hilar and mediastinal lymphadenopathy. VTE: negative Assessment and Plan (1) Congestive heart failure: Qualifiers: Heart failure chronicity: acute Heart failure type: systolic Qualified Code(s): I50.21 - Acute systolic (congestive) heart failure Status: Acute New onset congestive heart in elderly man with longstanding history of hypertension, on gemcitabine for bladder cancer, not high risk agent for cardiac toxicity. No other cardiotoxic agent in the near past. However needs an echocardiogram to assess LV systolic and diastolic function which will guide further treatment. Currently appears to be still significantly fluid overloaded. Continue IV diuresis with Lasix 40 mg b.i.d.. Strict intake and output chart needs to be maintained. Continue to trend BMP and BNP. Continue aggressive control of blood pressure, currently slightly elevated. Continue his oral medications at home. Starting tomorrow of his potassium levels acceptable will add Aldactone to his regimen. Management was discussed with him and his brother was at bedside. They understand agree. Will follow with you guys
--- NOTE | 2020-07-28 14:54 | P.PNIM_ITS ---
Subjective Subjective Date of Service: 07/28/20 Interval History: patient seen and examined at bedside still have significant leg swelling Review of Systems Denies any recent fever chills or decrease in appetite respiratory denies any shortness of breath coverage production cardiovascular See above gastrointestinal denies any dysphagia abdominal pain nausea vomiting or diarrhea genitourinary denies any dysuria frequency or hematuria musculoskeletal denies any joint pain or swelling neuropsych denies any weakness or seizures all other systems reviewed are negative Physical Exam Vital Signs: Vital Signs: Last Vital Signs Temp 97.9 F 07/28/20 11:17 Pulse 6 L 07/28/20 11:17 Resp 20 07/28/20 11:17 BP 138/47 L 07/28/20 11:17 Pulse Ox 96 07/28/20 11:17 Body Mass Index 39.8 Const: General: cooperative, comfortable, no acute distress, well developed, alert and awake Nutritional Appearance: obese Orientation/consciousness: patient oriented x3 HENMT: Head: Yes normocephalic and Yes atraumatic Ears: hearing grossly normal bilaterally General nose exam: Normal external nose present Mouth: Normal oral and palatal mucosa present Eyes: General: appearance normal, both eyes and all related structures Conjunctivae: conjunctivae normal Sclerae: sclerae normal Neck: Neck: Yes normal visual inspection, Yes no lymphadenopathy, Yes trachea midline, Yes supple and Yes JVD Chest: Chest palpation & inspection: normal palpation of entire chest wall Resp: Effort & Inspection: normal respiratory effort and able to speak in complete sentences Auscultation: clear to auscultation bilaterally, crackles, rales, no rhonchi, no wheezes and diminished lung sounds Cardio: Jugular venous distension: JVD Palpation: normal PMI Rate: regular rate Rhythm: regular rhythm Heart sounds: S1 normal heart sound present, S2 normal heart sound present, no murmurs and Other heart sounds present (S4 present) Peripheral pulses: Peripheral pulses 2+ throughout GI: Inspection: Yes normal to inspection and Yes obesity Palpation (GI): Soft to palpation Auscultation: normal bowel sounds : General: Yes no CVA tenderness Back/Spine/Pelvis: Back: no CVA tenderness Thoracic/Lumbar Spine: thoracic and lumbar spine normal to inspection Skin: General skin exam: no rashes or lesions noted and erythema (b/l le) Neuro: General: patient oriented x3 and no focal motor deficits Extrem: General: Yes full ROM, Yes no calf tenderness, No clubbing, No cyanosis, Yes edema and Yes pedal edema (4++ B/L) Psych: Appearance: grossly normal Objective Data Current Medications Generic Name Dose Route Start Last Admin Trade Name Kojoq PRN Reason Stop Dose Admin Acetaminophen 650 mg 07/27/20 17:59 Acetaminophen 325 Mg Tablet PO Q6H PRN Pain, Mild (Pain Scale 1-3) Amlodipine Besylate 10 mg 07/28/20 09:00 07/28/20 08:54 Amlodipine Besylate 10 Mg Tablet PO 10 mg DAILY [facility] Administration Protocol Aspirin 81 mg 07/28/20 09:00 07/28/20 08:53 Aspirin Enteric Coated 81 Mg Tablet.Dr PO 81 mg DAILY BIA Administration Clonidine HCl 0.1 mg 07/27/20 21:00 07/27/20 22:49 Clonidine Hcl 0.1 Mg Tablet PO 0.1 mg BEDTIME BIA Administration Protocol Doxazosin Mesylate 4 mg 07/27/20 21:00 07/27/20 22:48 Doxazosin Mesylate 2 Mg Tablet PO 4 mg BEDTIME BIA Administration Enoxaparin Sodium 40 mg 07/27/20 19:00 07/27/20 22:49 Enoxaparin Sodium 40 Mg/0.4 Ml Syringe SUBCUT 40 mg Q24H BIA Administration Furosemide 40 mg 07/28/20 17:00 Furosemide 40 Mg/4 Ml Vial IVPUSH BID@0800,1700 [facility] Protocol Multivitamins/Minerals 1 tab 07/28/20 09:00 07/28/20 08:54 Vits A,C,E/Lutein/Minerals Tablet PO 1 tab DAILY BIA Administration Non-Formulary Medication 1 drop 07/27/20 21:00 Brimonidine [Alphagan P] EYE-RIGHT TID [facility] Ondansetron HCl 4 mg 07/27/20 17:59 Ondansetron Hcl 4 Mg/2 Ml Vial IVPUSH Q8H PRN Nausea and Vomiting Sodium Chloride 3 ml 07/28/20 00:00 07/28/20 08:55 0.9 % Sodium Chloride Flush 3 Ml Syringe IVFLUSH 3 ml QSHIFT BIA Administration Labs CBC & Chem 7: 07/28/20 06:00 07/28/20 06:01 Microbiology Microbiology Results: Microbiology 07/27/20 12:18 Blood - Venous Blood Culture - Preliminary No growth after 24 hours. 07/27/20 12:07 Blood - Venous Blood Culture - Preliminary No growth after 24 hours. Assessment and Plan (1) Congestive heart failure: Status: Acute Assessment and Plan: 80 year old man admitted with heart failure. His brother noted that he had some leg swelling and brought him to the ED. He doesn't have a history of CHF and is not on diuretics at home. CHF. New onset heart functions not known continue IV Lasix Echocardiogram pending Cardiology consulted recommended continue IV diuresis Daily weights, I&O's. Hypertension Continue amlodipine and atenolol. BPH hx of bladder cancer Continue Terazosin. DVT prophylaxis with Lovenox
--- NOTE | 2020-07-28 18:06 | CA_ITS ---
Transthoracic Echocardiogram Patient (Last, First, Middle): Vaibhav Romero R Gender: Male Date of : 1940 Age: 80 Procedure Date: 07/28/2020 Procedure Type: Transthoracic Echocardiogram Location: [facility] [place] Height: 167.64 cm Weight: 112.95 kg BSA: 2.20 m2 Heart Rate: bpm BP: 149 / 73 mmHg Printing Bindery Assistant: RAYSHAWN Ornelas MD: Elma Reece NP Stencil Maker: Enoc Blanca MD Symptoms: CHF Study Quality: Fair/contrast ECG Rhythm: Sinus Conclusions: - 1. Normal LV systolic function grade 2 diastolic dysfunction 2. Mildly dilated left atrium 3. Normal cardiac valvular Doppler 4. Normal calculated RV systolic pressure with mildly elevated right atrial pressures 5. No gross pericardial effusion Findings Procedure Information The patient receives contrast. Left Ventricle Normal left ventricular size, thickness, and systolic function. The visually estimated ejection fraction is between 60-65%. Spectral Doppler is indicative of a pseudonormal filling pattern. E/E prime ratio is >15, consistent with elevated filling pressures. Evidence suggests grade II (moderate) diastolic dysfunction. Right Ventricle Normal right ventricular cavity size and systolic function. Atria The left atrium is mildly dilated. There is no evidence of interatrial shunt. The right atrium is normal in size. Aortic Valve The aortic valve structure and function is likely normal. There is no aortic valve stenosis. There is no aortic valve regurgitation. Mitral Valve Likely normal mitral valve structure and function. There is mild mitral annular calcification. There is mild mitral valve regurgitation. There is no mitral valve stenosis. Pulmonic Valve The pulmonic valve was not well visualized. Tricuspid Valve Likely normal tricuspid valve structure and function. There is mild tricuspid valve regurgitation. The right ventricular systolic pressure is normal. The right ventricular systolic pressure is 27 mmHg. Mildly elevated right atrial pressure. There is no evidence of pulmonary hypertension. Great Vessels All visible segments of the aorta are normal in size. The pulmonary artery was not well visualized. Venous The inferior vena cava is mildly dilated and collapses less than 50% with inspiration. Pericardium/Pleural Prominent epicardial adipose tissue noted. There is no evidence of pericardial effusion. Prior Study Comparison No significant change compared to prior study dated: 06/19/2019. Measurements 2D Linear Measurements IVSd: 1.08 0.6-0.9/0.6-1.0 cm LVIDd: 4.87 3.9-5.3/4.2-5.9 cm LVIDd Index: 2.21 2.4-3.2/2.2-3.1 cm/m2 LVIDs: 2.93 2.0-3.6 cm LVPWd: 1.03 0.7-1.1 cm Ao Root: 3.00 2.1-3.5 cm LA Diam: 4.40 2.7-3.8/3.0-4.0 cm LAIDs Index: 2.00 1.5-2.3 cm/m2 LV Mass: 233.55 67-162/88-224 g LV Mass Index: 106.16 43-95/49-115 g/m2 LVOT Diam: 2.10 3.0+(-)1.3 cm Mitral Valve MV Pk E: 1.41 MV PK A: 0.70 MV Decel Time: 226.00 E/A: 2.00 E'Lateral: 5.77 E'Medial: 6.85 E/E' Med: 20.60 E/E' Lat: 24.40 PHT: 66.00 MVA PHT: 3.33 Decel Daviess: 6.24 Aortic Valve AoV Pk Mekhi: 1.94 AoV Mn Mekhi: 1.23 AoV VTI: 0.42 AoV Pk Grad: 15.00 Aov Mn Grad: 7.00 YAYA Cont.VTI: 2.56 LVOT LVOT Pk Mekhi: 1.36 LVOT Mn Mekhi: 0.88 LVOT VTI: 0.31 LVOT Pk Grad: 7.00 LVOT Mn Grad: 4.00 LVOT Diam: 2.10 LVOT Area: 3.46 Diastolic Function MV Pk E: 1.41 MV Pk A: 0.70 E/A: 2.00 E'Medial: 6.85 E/E' Med: 20.60 E' Laterial: 5.77 E/E' Lat: 24.40 Tricuspid Valve TR Pk Mekhi: 2.17 TR Pk Grad: 19.00 RA Press: 8.00 RVSP: 27.00 Great Vessels Aorta Ao Root-2D: 3.00 2.0-3.7 cm Ao Asc: 2.90 2.1-3.4 cm Updated in Other Vendor System with Status of Final Enoc Blanca MD electronically signed on 07/28/2020 4:23:15 PM with status of Final
[2020-07-28] MEDS: cloNIDine HCL 0.1 MG TABLET PO (21:45)
[2020-07-28] MEDS: Doxazosin Mesylate 2 MG TABLET 4 MG PO (21:45)
[2020-07-28] MEDS: Enoxaparin Sodium 40 MG/0.4 ML SYRINGE SUBCUT (21:45)
[2020-07-29] VITALS (9 sets, daily range): BP systolic 127–160; BP diastolic 57–74; PULSE 56–68; RESP 18–19; TEMP 36–36.9; O2SAT 92–96
[2020-07-29] MEDS: amLODIPine Besylate 10 MG TABLET PO (08:45)
[2020-07-29] MEDS: Aspirin Enteric Coated 81 MG TABLET.DR PO (08:45)
[2020-07-29] MEDS: Furosemide 40 MG/4 ML VIAL IVPUSH ×2 (08:47→18:17)
[2020-07-29] MEDS: 0.9 % Sodium Chloride Flush 3 ML SYRINGE IVFLUSH ×3 (08:47→21:27)
[2020-07-29 09:14] LABS: Anion Gap 14 (12-20); Blood Urea Nitrogen 22 mg/dL (9-16); Calcium 9.3 mg/dL (8.4-10.2); Carbon Dioxide 29 mmol/L (22-29); Chloride 105 mmol/L (96-108); Creatinine Clr Calc Pharmacy 65.1; Estimated Glomerular Filt Rate > 60; Glucose Random 109 mg/dL (60-115); Potassium 5.1 mmol/L (3.3-5.1); Sodium 143 mmol/L (135-145)
[2020-07-29 09:22] LABS: B Type Natriuretic Peptide 296 pg/mL (<100)
--- NOTE | 2020-07-29 10:24 | PM.PNCARD ---
Subjective Subjective Date of Service: 07/29/20 Principal diagnosis: Congestive heart failure Interval history: Patient says that he has been diuresing well, however negative balance recorded is on the lower side. His BNP is reduced. Creatinine is stable. Echocardiogram shows normal LV systolic function with advanced diastolic dysfunction. Patient slept in the recliner last night. Still having significant leg edema. Blood pressure is elevated. Review of Systems Constitutional: Reports no additional constitutional complaints Cardiovascular: Reports no additional cardiovascular complaints Respiratory: Reports no additional respiratory complaints Gastrointestinal: Reports no additional gastrointestinal complaints Genitourinary: Reports no additional male genitourinary complaints Reports system reviewed and no additional complaints, except as documented Psychiatric: Reports no additional psychiatric complaints Physical Exam Vital Signs: Last Vital Signs Temp 98.3 F 07/29/20 07:56 Pulse 64 07/29/20 08:45 Resp 19 07/29/20 07:56 BP 155/63 H 07/29/20 08:45 Pulse Ox 96 07/29/20 07:56 Body Mass Index 39.8 Const General: cooperative, comfortable, no acute distress and awake Nutritional Appearance: obese Orientation/consciousness: patient oriented x3 Neck Neck: Yes trachea midline, Yes supple and Yes JVD Resp Effort & Inspection: normal respiratory effort Auscultation: clear to auscultation bilaterally Cardio Palpation: normal PMI Rate: regular rate Rhythm: regular rhythm Heart sounds: S1 normal heart sound present, S2 normal heart sound present and Other heart sounds present (S4 present) Skin General skin exam: no rashes or lesions noted Neuro General: patient oriented x3 Extrem General: No clubbing, No cyanosis and Yes edema Psych Appearance: grossly normal Results Labs and Meds Result diagrams: 07/28/20 06:00 07/29/20 08:14 Lab results: Laboratory Results - last 24 hr 07/29/20 07/29/20 08:14 08:14 Sodium 143 Potassium 5.1 Chloride 105 Carbon Dioxide 29 Anion Gap 14 BUN 22 H Creatinine 1.08 Estim Creat Clear Calc 65.1 Estimated GFR > 60 Random Glucose 109 Calcium 9.3 B-Natriuretic Peptide 296 H Progress Note: A&P Assessment and plan (1) (HFpEF) heart failure with preserved ejection fraction: Status: Acute Assessment and Plan: Heart failure preserved ejection fraction, diuresing well. Intake and output is not well maintained. Continue IV diuresis for 1 more day. Strict I&Os Q shift. Trend BMP and BNP tomorrow. Start Aldactone 12.5 mg. Most likely cause for his diastolic dysfunction hypertensive heart disease. However cardiac amyloidosis needs to be ruled out which will be performed as outpatient. Also need any ischemic workup as an outpatient. Please provide patient with heart failure education material as well including his brother who is very well involved in his care. Aggressive control of blood pressure is indicated. Target goal blood pressure less than 130/84. Will follow with the patient Fall Risk Details Current Medications: Current Medications Generic Name Dose Route Start Last Admin Trade Name Freq PRN Reason Stop Dose Admin Acetaminophen 650 mg 07/27/20 17:59 Acetaminophen 325 Mg Tablet PO Q6H PRN Pain, Mild (Pain Scale 1-3) Amlodipine Besylate 10 mg 07/28/20 09:00 07/29/20 08:45 Amlodipine Besylate 10 Mg Tablet PO 10 mg DAILY BIA Administration Protocol Aspirin 81 mg 07/28/20 09:00 07/29/20 08:45 Aspirin Enteric Coated 81 Mg Tablet.Dr PO 81 mg DAILY BIA Administration Clonidine HCl 0.1 mg 07/27/20 21:00 07/28/20 21:45 Clonidine Hcl 0.1 Mg Tablet PO 0.1 mg BEDTIME BIA Administration Protocol Doxazosin Mesylate 4 mg 07/27/20 21:00 07/28/20 21:45 Doxazosin Mesylate 2 Mg Tablet PO 4 mg BEDTIME BIA Administration Enoxaparin Sodium 40 mg 07/27/20 19:00 07/28/20 21:45 Enoxaparin Sodium 40 Mg/0.4 Ml Syringe SUBCUT 40 mg Q24H BIA Administration Furosemide 40 mg 07/28/20 17:00 07/29/20 08:47 Furosemide 40 Mg/4 Ml Vial IVPUSH 40 mg BID@0800,1700 BIA Administration Protocol Multivitamins/Minerals 1 tab 07/28/20 09:00 07/29/20 08:45 Vits A,C,E/Lutein/Minerals Tablet PO 1 tab DAILY BIA Administration Non-Formulary Medication 1 drop 07/27/20 21:00 Brimonidine [Alphagan P] EYE-RIGHT TID BIA Ondansetron HCl 4 mg 07/27/20 17:59 Ondansetron Hcl 4 Mg/2 Ml Vial IVPUSH Q8H PRN Nausea and Vomiting Sodium Chloride 3 ml 07/28/20 00:00 07/29/20 08:47 0.9 % Sodium Chloride Flush 3 Ml Syringe IVFLUSH 3 ml QSHIFT BIA Administration Time Spent With Patient Time: Total time spent is greater than 50% in coordination of care (as documented) at patient's floor/unit and/or counseling patient: Time with patient: 25 - 35 minutes
[2020-07-29] MEDS: Spironolactone 25 MG TABLET 12.5 MG PO (11:33)
--- NOTE | 2020-07-29 15:02 | P.PNIM_ITS ---
Subjective Subjective Date of Service: 07/29/20 Interval History: Patient seen and examined at bedside leg swelling slowly improving Review of Systems Denies any recent fever chills or decrease in appetite respiratory denies any shortness of breath coverage production cardiovascular See above gastrointestinal denies any dysphagia abdominal pain nausea vomiting or diarrhea genitourinary denies any dysuria frequency or hematuria musculoskeletal denies any joint pain or swelling neuropsych denies any weakness or seizures all other systems reviewed are negative Physical Exam 2 Vital Signs: Vital Signs: Last Vital Signs Temp 96.8 F 07/29/20 12:00 Pulse 64 07/29/20 12:00 Resp 19 07/29/20 12:00 BP 151/67 H 07/29/20 12:00 Pulse Ox 93 07/29/20 12:00 Body Mass Index 39.8 Const: General: cooperative, comfortable, no acute distress, well developed, alert and awake Nutritional Appearance: obese Orientation/consciousness: patient oriented x3 HENMT: Head: Yes normocephalic and Yes atraumatic Ears: hearing grossly normal bilaterally General nose exam: Normal external nose present Mouth: Normal oral and palatal mucosa present Eyes: General: appearance normal, both eyes and all related structures Conjunctivae: conjunctivae normal Sclerae: sclerae normal Neck: Neck: Yes normal visual inspection, Yes no lymphadenopathy, Yes trachea midline, Yes supple and Yes JVD Chest: Chest palpation & inspection: normal palpation of entire chest wall Resp: Effort & Inspection: normal respiratory effort and able to speak in complete sentences Auscultation: clear to auscultation bilaterally, crackles, rales, no rhonchi, no wheezes and diminished lung sounds Cardio: Jugular venous distension: JVD Palpation: normal PMI Rate: regular rate Rhythm: regular rhythm Heart sounds: S1 normal heart sound present, S2 normal heart sound present, no murmurs and Other heart sounds present (S4 present) Peripheral pulses: Peripheral pulses 2+ throughout GI: Inspection: Yes normal to inspection and Yes obesity Palpation (GI): Soft to palpation Auscultation: normal bowel sounds : General: Yes no CVA tenderness Back/Spine/Pelvis: Back: no CVA tenderness Thoracic/Lumbar Spine: thoracic and lumbar spine normal to inspection Skin: General skin exam: no rashes or lesions noted and erythema (b/l le) Neuro: General: patient oriented x3 and no focal motor deficits Extrem: General: Yes full ROM, Yes no calf tenderness, No clubbing, No cyanosis, Yes edema and Yes pedal edema (4++ B/L) Psych: Appearance: grossly normal Objective Data Current Medications Generic Name Dose Route Start Last Admin Trade Name Freq PRN Reason Stop Dose Admin Acetaminophen 650 mg 07/27/20 17:59 Acetaminophen 325 Mg Tablet PO Q6H PRN Pain, Mild (Pain Scale 1-3) Amlodipine Besylate 10 mg 07/28/20 09:00 07/29/20 08:45 Amlodipine Besylate 10 Mg Tablet PO 10 mg DAILY BIA Administration Protocol Aspirin 81 mg 07/28/20 09:00 07/29/20 08:45 Aspirin Enteric Coated 81 Mg Tablet.Dr PO 81 mg DAILY BIA Administration Clonidine HCl 0.1 mg 07/27/20 21:00 07/28/20 21:45 Clonidine Hcl 0.1 Mg Tablet PO 0.1 mg BEDTIME BIA Administration Protocol Doxazosin Mesylate 4 mg 07/27/20 21:00 07/28/20 21:45 Doxazosin Mesylate 2 Mg Tablet PO 4 mg BEDTIME BIA Administration Enoxaparin Sodium 40 mg 07/27/20 19:00 07/28/20 21:45 Enoxaparin Sodium 40 Mg/0.4 Ml Syringe SUBCUT 40 mg Q24H BIA Administration Furosemide 40 mg 07/28/20 17:00 07/29/20 08:47 Furosemide 40 Mg/4 Ml Vial IVPUSH 40 mg BID@0800,1700 BIA Administration Protocol Multivitamins/Minerals 1 tab 07/28/20 09:00 07/29/20 08:45 Vits A,C,E/Lutein/Minerals Tablet PO 1 tab DAILY BIA Administration Non-Formulary Medication 1 drop 07/27/20 21:00 Brimonidine [Alphagan P] EYE-RIGHT TID BIA Ondansetron HCl 4 mg 07/27/20 17:59 Ondansetron Hcl 4 Mg/2 Ml Vial IVPUSH Q8H PRN Nausea and Vomiting Sodium Chloride 3 ml 07/28/20 00:00 07/29/20 08:47 0.9 % Sodium Chloride Flush 3 Ml Syringe IVFLUSH 3 ml QSHIFT BIA Administration Spironolactone 12.5 mg 07/29/20 10:30 07/29/20 11:33 Spironolactone 25 Mg Tablet PO 12.5 mg DAILY BIA Administration Protocol Labs CBC & Chem 7: 07/28/20 06:00 07/29/20 08:14 Microbiology Microbiology Results: Microbiology 07/27/20 12:18 Blood - Venous Blood Culture - Preliminary No growth after 48 hours. 07/27/20 12:07 Blood - Venous Blood Culture - Preliminary No growth after 48 hours. Assessment and Plan (1) Congestive heart failure: Status: Acute Assessment and Plan: 80 year old man admitted with heart failure. His brother noted that he had some leg swelling and brought him to the ED. He doesn't have a history of CHF and is not on diuretics at home. Acute diastolic heart failure continue IV Lasix Echocardiogram done shows EF 50-55% Cardiology consulted recommended continue IV diuresis Daily weights, I&O's. Hypertension Continue amlodipine and atenolol. BPH hx of bladder cancer Continue Terazosin. DVT prophylaxis with Lovenox
[2020-07-29] MEDS: Enoxaparin Sodium 40 MG/0.4 ML SYRINGE SUBCUT (18:18)
[2020-07-29] MEDS: Doxazosin Mesylate 2 MG TABLET 4 MG PO (21:27)
[2020-07-29] MEDS: cloNIDine HCL 0.1 MG TABLET PO (21:27)
[2020-07-30] VITALS (7 sets, daily range): BP systolic 132–160; BP diastolic 60–71; PULSE 66–84; RESP 18–20; TEMP 36–36.9; O2SAT 93–97; BMI 38.6
[2020-07-30 07:27] LABS: B Type Natriuretic Peptide 306 pg/mL (<100)
[2020-07-30 07:31] LABS: Anion Gap 13 (12-20); Blood Urea Nitrogen 20 mg/dL (9-16); Calcium 8.7 mg/dL (8.4-10.2); Carbon Dioxide 29 mmol/L (22-29); Chloride 106 mmol/L (96-108); Creatinine Clr Calc Pharmacy 69.2; Estimated Glomerular Filt Rate > 60; Glucose Random 99 mg/dL (60-115); Potassium 4.9 mmol/L (3.3-5.1); Sodium 143 mmol/L (135-145)
[2020-07-30 07:32] LABS: Anion Gap 14 (12-20); Blood Urea Nitrogen 20 mg/dL (9-16); Calcium 8.7 mg/dL (8.4-10.2); Carbon Dioxide 29 mmol/L (22-29); Chloride 106 mmol/L (96-108); Creatinine Clr Calc Pharmacy 67.8; Estimated Glomerular Filt Rate > 60; Glucose Random 100 mg/dL (60-115); Potassium 4.9 mmol/L (3.3-5.1); Sodium 144 mmol/L (135-145)
[2020-07-30] MEDS: amLODIPine Besylate 10 MG TABLET PO (10:16)
[2020-07-30] MEDS: Spironolactone 25 MG TABLET 12.5 MG PO (10:16)
[2020-07-30] MEDS: Furosemide 40 MG/4 ML VIAL IVPUSH (10:17)
[2020-07-30] MEDS: Aspirin Enteric Coated 81 MG TABLET.DR PO (10:17)
[2020-07-30] MEDS: 0.9 % Sodium Chloride Flush 3 ML SYRINGE IVFLUSH ×3 (10:25→21:00)
--- NOTE | 2020-07-30 13:51 | P.PNCA_ITS ---
Subjective Subjective Date of Service: 07/30/20 Principal diagnosis: Congestive heart failure Interval history: Patient continues to have no symptoms. Leg edema is i mproving. Diuresis is has been modest. Review of Systems Review of Systems Yes all other systems are reviewed and are negative Physical Exam Vital Signs: Last Vital Signs Temp 97.1 F 07/30/20 12:00 Pulse 75 07/30/20 12:00 Resp 20 07/30/20 12:00 BP 137/63 07/30/20 12:00 Pulse Ox 97 07/30/20 12:00 Body Mass Index 38.6 Neck Neck: Yes trachea midline, Yes supple and Yes JVD Chest Chest palpation & inspection: normal inspection of the chest Cardio Jugular venous distension: JVD Palpation: normal PMI Rate: regular rate Rhythm: regular rhythm Heart sounds: S1 normal heart sound present and S2 normal heart sound present GI Auscultation: normal bowel sounds Neuro General: no focal motor deficits Extrem General: Yes edema (Although improving) Results Labs and Meds Result diagrams: 07/28/20 06:00 07/30/20 05:47 Lab results: Laboratory Results - last 24 hr 07/30/20 07/30/20 07/30/20 05:47 05:47 05:47 Sodium 143 144 Potassium 4.9 4.9 Chloride 106 106 Carbon Dioxide 29 29 Anion Gap 13 14 BUN 20 H 20 H Creatinine 1.00 1.02 Estim Creat Clear Calc 69.2 67.8 Estimated GFR > 60 > 60 Random Glucose 99 100 Calcium 8.7 D 8.7 B-Natriuretic Peptide 306 H Progress Note: A&P Assessment and plan (1) (HFpEF) heart failure with preserved ejection fraction: Status: Acute Assessment and Plan: Heart failure preserved ejection fraction improving. Blood pressure is better controlled. May switch to p.o. Bumex 2 mg daily. Continue Aldactone. Continue other antihypertensive therapy. Heart failure education to be provided. Patient appears to be symptom-free and can be discharged home tomorrow if remains stable. Will sign of the case today and follow up as outpatient. Fall Risk Details Current Medications: Current Medications Generic Name Dose Route Start Last Admin Trade Name Freq PRN Reason Stop Dose Admin Acetaminophen 650 mg 07/27/20 17:59 Acetaminophen 325 Mg Tablet PO Q6H PRN Pain, Mild (Pain Scale 1-3) Amlodipine Besylate 10 mg 07/28/20 09:00 07/30/20 10:16 Amlodipine Besylate 10 Mg Tablet PO 10 mg DAILY BIA Administration Protocol Aspirin 81 mg 07/28/20 09:00 07/30/20 10:17 Aspirin Enteric Coated 81 Mg Tablet.Dr PO 81 mg DAILY BIA Administration Clonidine HCl 0.1 mg 07/27/20 21:00 07/29/20 21:27 Clonidine Hcl 0.1 Mg Tablet PO 0.1 mg BEDTIME BIA Administration Protocol Doxazosin Mesylate 4 mg 07/27/20 21:00 07/29/20 21:27 Doxazosin Mesylate 2 Mg Tablet PO 4 mg BEDTIME BIA Administration Enoxaparin Sodium 40 mg 07/27/20 19:00 07/29/20 18:18 Enoxaparin Sodium 40 Mg/0.4 Ml Syringe SUBCUT 40 mg Q24H BIA Administration Furosemide 40 mg 07/28/20 17:00 07/30/20 10:17 Furosemide 40 Mg/4 Ml Vial IVPUSH 40 mg BID@0800,1700 [facility] Administration Protocol Multivitamins/Minerals 1 tab 07/28/20 09:00 07/30/20 10:17 Vits A,C,E/Lutein/Minerals Tablet PO 1 tab DAILY [facility] Administration Non-Formulary Medication 1 drop 07/27/20 21:00 Brimonidine [Alphagan P] EYE-RIGHT TID [facility] Ondansetron HCl 4 mg 07/27/20 17:59 Ondansetron Hcl 4 Mg/2 Ml Vial IVPUSH Q8H PRN Nausea and Vomiting Sodium Chloride 3 ml 07/28/20 00:00 07/30/20 10:25 0.9 % Sodium Chloride Flush 3 Ml Syringe IVFLUSH 3 ml QSHIFT [facility] Administration Spironolactone 12.5 mg 07/29/20 10:30 07/30/20 10:16 Spironolactone 25 Mg Tablet PO 12.5 mg DAILY BIA Administration Protocol Time Spent With Patient Time: Total time spent is greater than 50% in coordination of care (as documented) at patient's floor/unit and/or counseling patient: Time with patient: 25 - 35 minutes
--- NOTE | 2020-07-30 14:53 | P.PNIM_ITS ---
Subjective Subjective Date of Service: 07/30/20 Interval History: Patient seen and examined at bedside leg swelling slowly improving Review of Systems Denies any recent fever chills or decrease in appetite respiratory denies any shortness of breath coverage production cardiovascular See above gastrointestinal denies any dysphagia abdominal pain nausea vomiting or diarrhea genitourinary denies any dysuria frequency or hematuria musculoskeletal denies any joint pain or swelling neuropsych denies any weakness or seizures all other systems reviewed are negative Physical Exam 2 Vital Signs: Vital Signs: Last Vital Signs Temp 97.1 F 07/30/20 12:00 Pulse 75 07/30/20 12:00 Resp 20 07/30/20 12:00 BP 137/63 07/30/20 12:00 Pulse Ox 97 07/30/20 12:00 Body Mass Index 38.6 Const: General: cooperative, comfortable, no acute distress, well developed, alert and awake Nutritional Appearance: obese Orientation/consciousness: patient oriented x3 HENMT: Head: Yes normocephalic and Yes atraumatic Ears: hearing grossly normal bilaterally General nose exam: Normal external nose present Mouth: Normal oral and palatal mucosa present Eyes: General: appearance normal, both eyes and all related structures Conjunctivae: conjunctivae normal Sclerae: sclerae normal Neck: Neck: Yes normal visual inspection, Yes no lymphadenopathy, Yes trachea midline, Yes supple and Yes JVD Chest: Chest palpation & inspection: normal palpation of entire chest wall Resp: Effort & Inspection: normal respiratory effort and able to speak in complete sentences Auscultation: clear to auscultation bilaterally, crackles, rales, no rhonchi, no wheezes and diminished lung sounds Cardio: Jugular venous distension: JVD Palpation: normal PMI Rate: regular rate Rhythm: regular rhythm Heart sounds: S1 normal heart sound present, S2 normal heart sound present, no murmurs and Other heart sounds present (S4 present) Peripheral pulses: Peripheral pulses 2+ throughout GI: Inspection: Yes normal to inspection and Yes obesity Palpation (GI): Soft to palpation Auscultation: normal bowel sounds : General: Yes no CVA tenderness Back/Spine/Pelvis: Back: no CVA tenderness Thoracic/Lumbar Spine: thoracic and lumbar spine normal to inspection Skin: General skin exam: no rashes or lesions noted and erythema (b/l le) Neuro: General: patient oriented x3 and no focal motor deficits Extrem: General: Yes full ROM, Yes no calf tenderness, No clubbing, No cyanosis, Yes edema and Yes pedal edema (4++ B/L) Psych: Appearance: grossly normal Objective Data Current Medications Generic Name Dose Route Start Last Admin Trade Name Freq PRN Reason Stop Dose Admin Acetaminophen 650 mg 07/27/20 17:59 Acetaminophen 325 Mg Tablet PO Q6H PRN Pain, Mild (Pain Scale 1-3) Amlodipine Besylate 10 mg 07/28/20 09:00 07/30/20 10:16 Amlodipine Besylate 10 Mg Tablet PO 10 mg DAILY BIA Administration Protocol Aspirin 81 mg 07/28/20 09:00 07/30/20 10:17 Aspirin Enteric Coated 81 Mg Tablet.Dr PO 81 mg DAILY BIA Administration Clonidine HCl 0.1 mg 07/27/20 21:00 07/29/20 21:27 Clonidine Hcl 0.1 Mg Tablet PO 0.1 mg BEDTIME BIA Administration Protocol Doxazosin Mesylate 4 mg 07/27/20 21:00 07/29/20 21:27 Doxazosin Mesylate 2 Mg Tablet PO 4 mg BEDTIME BIA Administration Enoxaparin Sodium 40 mg 07/27/20 19:00 07/29/20 18:18 Enoxaparin Sodium 40 Mg/0.4 Ml Syringe SUBCUT 40 mg Q24H BIA Administration Furosemide 40 mg 07/28/20 17:00 07/30/20 10:17 Furosemide 40 Mg/4 Ml Vial IVPUSH 40 mg BID@0800,1700 BIA Administration Protocol Multivitamins/Minerals 1 tab 07/28/20 09:00 07/30/20 10:17 Vits A,C,E/Lutein/Minerals Tablet PO 1 tab DAILY BIA Administration Non-Formulary Medication 1 drop 07/27/20 21:00 Brimonidine [Alphagan P] EYE-RIGHT TID BIA Ondansetron HCl 4 mg 07/27/20 17:59 Ondansetron Hcl 4 Mg/2 Ml Vial IVPUSH Q8H PRN Nausea and Vomiting Sodium Chloride 3 ml 07/28/20 00:00 07/30/20 10:25 0.9 % Sodium Chloride Flush 3 Ml Syringe IVFLUSH 3 ml QSHIFT BIA Administration Spironolactone 12.5 mg 07/29/20 10:30 07/30/20 10:16 Spironolactone 25 Mg Tablet PO 12.5 mg DAILY BIA Administration Protocol Labs CBC & Chem 7: 07/28/20 06:00 07/30/20 05:47 Microbiology Microbiology Results: Microbiology 07/27/20 12:18 Blood - Venous Blood Culture - Preliminary No growth after 48 hours. 07/27/20 12:07 Blood - Venous Blood Culture - Preliminary No growth after 48 hours. Assessment and Plan (1) Congestive heart failure: Status: Acute Assessment and Plan: 80 year old man admitted with heart failure. His brother noted that he had some leg swelling and brought him to the ED. He doesn't have a history of CHF and is not on diuretics at home. Acute diastolic heart failure improving edema improving received IV Lasix will switch to p.o. Bumex Echocardiogram done shows EF 50-55% Cardiology following Daily weights, I&O's. Hypertension Continue amlodipine and atenolol. BPH hx of bladder cancer Continue Terazosin. DVT prophylaxis with Lovenox likely discharge tomorrow if continues to improve
[2020-07-30] MEDS: Bumetanide 1 MG TABLET 2 MG PO (16:24)
[2020-07-30] MEDS: Enoxaparin Sodium 40 MG/0.4 ML SYRINGE SUBCUT (18:04)
[2020-07-30] MEDS: Doxazosin Mesylate 2 MG TABLET 4 MG PO (20:56)
[2020-07-30] MEDS: cloNIDine HCL 0.1 MG TABLET PO (20:56)
[2020-07-31 03:37] VITALS: BP 141/61; PULSE 65; RESP 18; TEMP 36.4; O2SAT 94
[2020-07-31 06:00] VITALS: BMI 38.3
[2020-07-31 06:32] LABS: Anion Gap 14 (12-20); Blood Urea Nitrogen 16 mg/dL (9-16); Calcium 8.8 mg/dL (8.4-10.2); Carbon Dioxide 31 mmol/L (22-29); Chloride 102 mmol/L (96-108); Creatinine Clr Calc Pharmacy 72.1; Estimated Glomerular Filt Rate > 60; Glucose Random 106 mg/dL (60-115); Sodium 143 mmol/L (135-145)
[2020-07-31 07:40] VITALS: BP 161/70; PULSE 64; RESP 18; TEMP 36.3; O2SAT 95
[2020-07-31] MEDS: Aspirin Enteric Coated 81 MG TABLET.DR PO (09:48)
[2020-07-31] MEDS: 0.9 % Sodium Chloride Flush 3 ML SYRINGE IVFLUSH (09:48)
[2020-07-31 09:49] VITALS: BP 152/70; PULSE 70
[2020-07-31] MEDS: Bumetanide 1 MG TABLET 2 MG PO (09:49)
[2020-07-31] MEDS: Spironolactone 25 MG TABLET 12.5 MG PO (09:49)
[2020-07-31] MEDS: amLODIPine Besylate 10 MG TABLET PO (09:49)
--- NOTE | 2020-07-31 10:06 | PM.DS ---
DS: Providers Provider Date of Service: 07/31/20 Date of admission: 07/27/20 17:59 Primary care physician: Liza Beard MD Consults: 07/27/20 17:59 Consult to Cardiology Routine Consulting Provider: Enoc Blanca Reason for consultation: CHF Has provider been notified: No DS: Diagnosis Discharge Diagnosis (1) Congestive heart failure: Status: Acute (2) Hypertension, essential: Status: Acute (3) Anemia: Status: Acute DS: Medications Discharge Medications Home Medications: Home Medications Medication Instructions Recorded Confirmed aspirin 81 mg tablet,delayed 81 mg PO DAILY 03/30/20 07/27/20 release brimonidine [Alphagan P] 1 drp OPHTHALMIC-RIGHT TID 06/06/20 07/27/20 vit C,O-Dc-bemep-lutein-zeaxan 1 tab PO BID 06/06/20 07/27/20 [PreserVision AREDS-2] atenolol 50 mg tablet 50 mg PO DAILY 07/13/20 07/27/20 Previous Rx's Medication Instructions Recorded amlodipine 10 mg tablet 10 mg PO DAILY #90 tab 05/17/20 clonidine HCl 0.1 mg tablet 0.1 mg PO BEDTIME #90 tab 06/21/20 terazosin 5 mg capsule 5 mg PO BEDTIME #90 cap 07/13/20 DS: Summary Hospital Course Hospital Course: HPI: 80 year old man presenting with leg swelling over the last several weeks. 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 He denied Chest pain, shortness of breath. He sleeps in his chair because he coughs when he lays in his bed. He is not on diuretics at home and it doesn't appear that he has a history of CHF. His BNP was noted to be elevated at 534. He was not noted to be hypoxic and is not on home oxygen. He was given IV lasix in the ED and will be admitted for further management of CHF. Hospital course: Acute diastolic heart failure, presumed new with no evidence of acute ischemia--Patient treated in the hospital with IV Lasix with significant improvement under the guidance of Dr. Blanca cardiology who at this time is recommending continuing management with Oral Bumex 2 mg daily and Aldactone 12.5 daily. He is advised to limit salt and water intake and to do daily weightcheck and to follow up with Dr. Blanca and his primary care provider within a 7 to 10 days. Echocardiogram showed EF of 50 t 55% Time Spent with Patient Time attestation: Total time spent providing and/or coordinating discharge services: Discharge coordination time: Greater than 30 minutes Physical Exam Vital Signs: Vital Signs: Last Vital Signs Temp 97.3 F 07/31/20 07:40 Pulse 70 07/31/20 09:49 Resp 18 07/31/20 07:40 BP 152/70 H 07/31/20 09:49 Pulse Ox 95 07/31/20 07:40 Body Mass Index 38.3 General: AO X 3, no acute distress Resp: CTA bilateral CVS: S1,S2,RRR, 1+ bi pedal edema GI: +BS, NT, no distention Skin: No rash Neuro: motor grossly intact Psych: appropriate affect DS: Data Data Completed and Pending Labs on day of discharge: Laboratory Results - last 24 hr 07/31/20 05:28 Sodium 143 Potassium 4.0 Chloride 102 Carbon Dioxide 31 H Anion Gap 14 BUN 16 Creatinine 0.96 Estim Creat Clear Calc 72.1 Estimated GFR > 60 Random Glucose 106 Calcium 8.8 Preliminary micro results at discharge 07/27/20 12:18 Blood Culture - Preliminary Blood - Venous No growth after 48 hours. 07/27/20 12:07 Blood Culture - Preliminary Blood - Venous No growth after 48 hours. Discharge Plan Discharge Anticipated Discharge Date/Time: 07/31/20 10:01 Patient Disposition: Home Health Service Referrals: [facility] [Outside] Liza Beard MD [Primary Care Provider] - Discharge Medications: New spironolactone 25 mg Tablet 12.5 mg PO DAILY Qty: 30 RF: 0 bumetanide 1 mg Tablet 2 mg PO DAILY Qty: 30 RF: 0 Continued amlodipine 10 mg tablet 10 mg PO DAILY Qty: 90 RF: 0 clonidine HCl 0.1 mg tablet 0.1 mg PO BEDTIME Qty: 90 RF: 0 Alphagan P 0.1 % drops 1 drp ophthalmic-Right TID RF: 0 PreserVision AREDS-2 250-90-40-1 mg Capsule 1 tab PO BID RF: 0 aspirin [Adult Low Dose Aspirin] 81 mg tablet,delayed release (DR/EC) 81 mg PO DAILY RF: 0 terazosin 5 mg capsule 5 mg PO BEDTIME Qty: 90 RF: 0 Discharge Orders: Discharge Order (Routine); Ordered 07/31/20 Ordered By: Wilmer Howard Diet: advance to usual diet Activity on Discharge: As tolerated Stand Alone Forms: Patient Portal Discharge page Care Plan Goals: prevent rehospitalization and cotrol of heart failure Health Concerns: Heart failure Plan of Treatment: Take Bumetadine as recommended, limit water intake and follow up with your Doctor as recommended and follow up with heart doctors, Patient Instructions: Heart Failure (ED)
--- NOTE | 2020-07-31 10:25 | MHC.CM.PN ---
Addendum entered by Lyndsey Walker 07/31/20 10:25: [facility] notified via [facility]. Pts brother to transport Original Note: Pt cleared to [place] [facility] today with [facility] for [facility].
--- NOTE | 2020-07-31 10:37 | W.MHC.F2F ---
Service Date Service Date: 07/31/20 Encounter Date of encounter: 07/31/20 Reasons for Services Reason for fdc: CV/CP assess and/or care and medication management Homebound: Leaving the home is medically contraindicated at this time without the asist of a device and/or another person due th the listed conditions above and below. Homebound supporting statement: Homebound due to legally blind with new heart failure and therefore needs the assistance of another person Certification: Based on the above findings, I certify that this patient is confined to the home and needs intermittent fdc care, physical therapy and/or speech therapy, or continues to need occupational therapy. The patient is under my care, and I have initiated the establishment of the plan of care. The patient will be followed by a physician who will periodically review the plan of care.
--- NOTE | 2020-07-31 12:46 | PM.PNCARD ---
Subjective Subjective Date of Service: 07/31/20 Principal diagnosis: Congestive heart failure Interval history: Patient having no new symptoms. Leg edema is improved but remains persistent. Tolerating his oral medications well. Ambulating to the bathroom without symptoms. Review of Systems Review of Systems Yes all other systems are reviewed and are negative Physical Exam Vital Signs: Last Vital Signs Temp 97.3 F 07/31/20 07:40 Pulse 70 07/31/20 09:49 Resp 18 07/31/20 07:40 BP 152/70 H 07/31/20 09:49 Pulse Ox 95 07/31/20 07:40 Body Mass Index 38.3 Const General: cooperative, comfortable and no acute distress Nutritional Appearance: obese Orientation/consciousness: patient oriented x3 Neck Neck: Yes no JVD Resp Effort & Inspection: normal respiratory effort Auscultation: clear to auscultation bilaterally Cardio Jugular venous distension: no JVD Rate: regular rate Rhythm: regular rhythm Heart sounds: S1 normal heart sound present and S2 normal heart sound present Skin General skin exam: no rashes or lesions noted Neuro General: patient oriented x3 Extrem General: Yes edema Results Labs and Meds Result diagrams: 07/28/20 06:00 07/31/20 05:28 Lab results: Laboratory Results - last 24 hr 07/31/20 05:28 Sodium 143 Potassium 4.0 Chloride 102 Carbon Dioxide 31 H Anion Gap 14 BUN 16 Creatinine 0.96 Estim Creat Clear Calc 72.1 Estimated GFR > 60 Random Glucose 106 Calcium 8.8 Progress Note: A&P Assessment and plan (1) (HFpEF) heart failure with preserved ejection fraction: Status: Acute Assessment and Plan: Heart failure preserved ejection fraction, much improved fluid status. Continue p.o. Bumex as well as Aldactone therapy. Will follow up in the clinic in 7-10 days. Will require ischemic workup as well as sleep study as outpatient. Will also require workup for cardiac amyloidosis if there is no significant ischemia and/or sleep apnea. Blood pressure is optimized at current time. Continue current therapy. CHF education was discussed with both patient and his brother was present at bedside. They understand and agree. Time Spent With Patient Time: Total time spent is greater than 50% in coordination of care (as documented) at patient's floor/unit and/or counseling patient: Time with patient: 25 - 35 minutes
== END 2020-07-31 12:15 | disposition home health service (06) | DRG 291 ==
LOC: HO.ED 15:20 → HO.EDOVER 18:43 → HO.IMC 18:45
PROVIDERS: Internal Medicine Cardiovascular Disease; Nurse Practitioner Acute Care; Admitting Provider Internal Medicine; Emergency Provider Internal Medicine; PCP Internal Medicine; Visit Provider Internal Medicine
DX: I11.0 Hypertensive heart disease with heart failure (principal); I50.31 Acute diastolic (congestive) heart failure; D45 Polycythemia vera; D64.9 Anemia, unspecified; C67.9 Malignant neoplasm of bladder, unspecified; N40.0 Benign prostatic hyperplasia without lower urinary tract symptoms; H54.8 Legal blindness, as defined in USA; E66.9 Obesity, unspecified; Z68.38 Body mass index [BMI] 38.0-38.9, adult; Z20.822 Contact with and (suspected) exposure to COVID-19; Z79.899 Other long term (current) drug therapy
CPT/HCPCS: 36415; 71045; 71275; 80048; 80076; 83605; 83880; 84484; 85025; 85610; 85730; 87040; 87635; 93005; 93306; 96374; 99285; C1758; J1650; J1940; Q9957; Q9967

== ENCOUNTER 2020-08-09 10:22 | Outpatient (REF) | payer MEDICARE, SELFPAY ==
[2020-08-09 13:12] LABS: Anion Gap 17 (12-20); Blood Urea Nitrogen 26 mg/dL (9-16); Calcium 9.6 mg/dL (8.4-10.2); Carbon Dioxide 28 mmol/L (22-29); Chloride 101 mmol/L (96-108); Estimated Glomerular Filt Rate > 60; Glucose Random 84 mg/dL (60-115); Potassium 5.1 mmol/L (3.3-5.1); Sodium 141 mmol/L (135-145)
[2020-08-09 13:21] LABS: B Type Natriuretic Peptide 126 pg/mL (<100)
== END 2020-08-09 10:23 | disposition home or self-care (01) ==
LOC: HO.LAB 10:22
PROVIDERS: PCP Internal Medicine; Visit Provider Nurse Practitioner Family
DX: I11.0 Hypertensive heart disease with heart failure (principal); I50.30 Unspecified diastolic (congestive) heart failure; E66.01 Morbid (severe) obesity due to excess calories; Z68.36 Body mass index [BMI] 36.0-36.9, adult; Z79.82 Long term (current) use of aspirin; Z79.899 Other long term (current) drug therapy
CPT/HCPCS: 36415; 80048; 83880; 99212

== ENCOUNTER → 2020-08-16 08:25 | Outpatient (REF) | payer MEDICARE, SELFPAY ==
--- NOTE | ~2020-08-16 | NM_ITS ---
Lexiscan Myocardial perfusion study Indication: Shortness of breath, assess for coronary disease Technique: The patient was brought in for a Lexiscan perfusion study on 08/16/2020 and was injected 0.4 mg of Lexiscan intravenously. Within a minute of this injection 30 mCi of sestamibi was given intravenously. Images were obtained using the SPECT gamma camera interlaced with the gating device. Images were obtained in supine position. Resting perfusion study was performed on 08/17/2020. Patient was administered 30 mCi of sestamibi intravenously at rest. Images were then obtained in supine position. Total DLP 77mGy-cm. Images were processed with the software and compared side to side in short axis, horizontal long axis and vertical long axis views. Findings: Raw acquisition was reviewed. The stress perfusion study showed mildly diminished tracer uptake along the basal part of inferior wall. With CT attenuation correction this improves significantly, suggestive of diaphragmatic attenuation artifact. The gated study shows normal LV systolic function with calculated LVEF of 71%. LV cavity is normal in size. The gated study shows normal wall thickening and contraction of segments. Resting study shows diminished tracer uptake along the inferior wall that improves with CT attenuation correction. Gating at rest reveals normal wall motion with ejection fraction at 66%. The findings are consistent with no reversible defects. Fixed inferior defect likely from diaphragmatic artifact. NM/NM cardiolite stress test Impression: 1. Myocardial perfusion imaging study shows no evidence of any ischemia or infarction. 2. Gated LVEF is 71% during stress and 66% during rest. 3. Transient ischemic dilatation not present. EKG component of the test reported separately.
--- NOTE | 2020-08-16 08:30 | CA_ITS ---
Acquisition Time: 2020-08-16 08:41:06 Total Exercise Time: 00:02:00 Test Indications: Dyspnea Medications: AMLODIPINE ASA ATENOLOL BUMETANIDE CLONIDINE Protocol: LEXISCAN Max HR: 088 BPM 62% of Pred: 141 BPM Max BP: 116/062 mmHG Max Work Load: 1.0 METS Pharmacological stress test using Lexiscan while sitting and kicking his feet. Pt tolerated well, denies any anginal sx. EKG with occasional PVC's non-diagnostic for ischemia. Nuclear images to follow. Normotensive response to exercise. Test reviewed with Dr. Blanca. Referred By: Olya Gonsales Overread By: Catherine Rubio NP
== END ==
LOC: HO.CARD 08:25
PROVIDERS: Visit Provider Nurse Practitioner Family
DX: I50.21 Acute systolic (congestive) heart failure (principal)
CPT/HCPCS: 78452; 93017; A9500; J0280; J2785

== ENCOUNTER → 2020-08-17 13:14 | Outpatient (BNVA) | payer MEDICARE, SELFPAY | PROVIDERS: Visit Provider Urology | DX: Z13.89 Encounter for screening for other disorder (principal) | CPT/HCPCS: Q3014 ==

== ENCOUNTER → 2020-08-18 12:46 | Outpatient (REF) | payer MEDICARE, SELFPAY | LOC: HO.SL 12:46 | PROVIDERS: PCP Internal Medicine; Visit Provider Nurse Practitioner Family | DX: G47.9 Sleep disorder, unspecified (principal); G47.10 Hypersomnia, unspecified; I50.21 Acute systolic (congestive) heart failure; E66.01 Morbid (severe) obesity due to excess calories; Z68.36 Body mass index [BMI] 36.0-36.9, adult | CPT/HCPCS: 95806 ==

== ENCOUNTER 2020-08-31 08:55 | Outpatient (REF) | payer MEDICARE, SELFPAY | END 2020-08-31 08:56 | disposition home or self-care (01) | LOC: HO.BBR 08:55 | PROVIDERS: Visit Provider Internal Medicine | DX: D45 Polycythemia vera (principal) | CPT/HCPCS: 85014; 85018; 99195 ==

== ENCOUNTER → 2020-09-07 10:21 | Outpatient (BNVA) | payer MEDICARE, SELFPAY | PROVIDERS: PCP Internal Medicine; Visit Provider Nurse Practitioner Family | DX: I11.0 Hypertensive heart disease with heart failure (principal); I50.30 Unspecified diastolic (congestive) heart failure; E66.01 Morbid (severe) obesity due to excess calories; Z68.39 Body mass index [BMI] 39.0-39.9, adult; Z79.899 Other long term (current) drug therapy; Z71.3 Dietary counseling and surveillance | CPT/HCPCS: Q3014 ==

== ENCOUNTER 2020-09-13 10:06 | Outpatient (REF) | payer MEDICARE, SELFPAY | END 2020-09-13 10:07 | disposition home or self-care (01) | LOC: HO.LAB 10:06 | PROVIDERS: Visit Provider Nurse Practitioner Family | DX: L08.9 Local infection of the skin and subcutaneous tissue, unspecified (principal); T14.8XXA Other injury of unspecified body region, initial encounter; X58.XXXA Exposure to other specified factors, initial encounter; Y93.9 Activity, unspecified; Y92.9 Unspecified place or not applicable; Y99.9 Unspecified external cause status | CPT/HCPCS: 87071; 87205 ==

== ENCOUNTER 2020-09-19 | Outpatient (REF) | payer MEDICARE, SELFPAY ==
[2020-09-19 10:32] LABS: Anion Gap 17 (12-20); Blood Urea Nitrogen 26 mg/dL (9-16); Calcium 9.7 mg/dL (8.4-10.2); Carbon Dioxide 28 mmol/L (22-29); Chloride 100 mmol/L (96-108); Estimated Glomerular Filt Rate > 60; Glucose Random 96 mg/dL (60-115); Potassium 4.5 mmol/L (3.3-5.1); Sodium 140 mmol/L (135-145)
== END 2020-09-19 00:01 | disposition home or self-care (01) ==
LOC: HO.BBR
PROVIDERS: Nurse Practitioner Family; Visit Provider Internal Medicine
DX: I50.30 Unspecified diastolic (congestive) heart failure (principal)
CPT/HCPCS: 36415; 80048

== ENCOUNTER 2020-09-21 13:49 | Outpatient (RCR) | payer MEDICARE, SELFPAY | END 2020-09-28 09:12 | disposition home or self-care (01) | LOC: HO.WCC 13:49 | PROVIDERS: Visit Provider Surgery | DX: S51.812D Laceration without foreign body of left forearm, subsequent encounter (principal) | CPT/HCPCS: 99202 ==

== ENCOUNTER 2020-10-03 09:05 | Outpatient (REF) | payer MEDICARE, SELFPAY | END 2020-10-03 09:06 | disposition home or self-care (01) | LOC: HO.BBR 09:05 | PROVIDERS: Visit Provider Internal Medicine Medical Oncology | DX: D45 Polycythemia vera (principal) | CPT/HCPCS: 85018; 99195 ==

== ENCOUNTER 2020-11-03 08:01 | Outpatient (REF) | payer MEDICARE, SELFPAY | END 2020-11-03 08:02 | disposition home or self-care (01) | LOC: HO.BBR 08:01 | PROVIDERS: Visit Provider Internal Medicine Medical Oncology | DX: D45 Polycythemia vera (principal) | CPT/HCPCS: 85018; 99195 ==

== ENCOUNTER → 2020-12-06 08:52 | Outpatient (BNVA) | payer MEDICARE, SELFPAY | PROVIDERS: PCP Internal Medicine; Referring Provider Internal Medicine; Visit Provider Internal Medicine Cardiovascular Disease | DX: I11.0 Hypertensive heart disease with heart failure (principal); I50.30 Unspecified diastolic (congestive) heart failure | CPT/HCPCS: 99212 ==

== ENCOUNTER → 2020-12-14 09:56 | Outpatient (REF) | payer MEDICARE, SELFPAY ==
--- NOTE | ~2020-12-14 | NM_ITS ---
Technetium pyrophosphate cardiac study INDICATION: Diastolic heart failure to evaluate for cardiac amyloidosis TECHNIQUE: Patient was injected with 25 mCi of technetium pyrophosphate intravenously at the right. Planar images of the chest were obtained in anterior and the lateral view that 3 hours. SPECT-CT images were also obtained. COMPARISON: None FINDINGS: 1. Images quality is adequate 2. There is no evidence of uptake of technetium pyrophosphate with normal bone uptake 3. No other findings noted NM/NM TC PYP cardiac amyloidosis IMPRESSION: 1. No evidence of cardiac amyloidosis based on this study. 2. Light chain amyloidosis is not completely ruled out by this study and should consider additional serum and urine light chain study if clinically indicated
== END ==
LOC: HO.NUCMED 09:56
PROVIDERS: PCP Internal Medicine; Visit Provider Internal Medicine Cardiovascular Disease
DX: I50.30 Unspecified diastolic (congestive) heart failure (principal)
CPT/HCPCS: 78803; A9538

== ENCOUNTER 2021-01-06 08:01 | Outpatient (REF) | payer MEDICARE, SELFPAY ==
[2021-01-06 08:13] LABS: MANUAL DIFF FLAG NO
[2021-01-06 08:15] LABS: Basophils Absolute Auto 0.2 X10*3/uL (0.0-0.2); Basophils Percent Auto 1.1 % (0-2); Eosinophils Absolute Auto 0.3 X10*3/uL (0.0-0.4); Eosinophils Percent Auto 1.7 % (0-4); Hematocrit 43.9 % (42-52); Hemoglobin 13.4 g/dl (14.0-18.0); Imm Gran Abs Auto 0.12 X10*3/uL (0.00-0.03); Imm Gran Pct Auto 0.7 % (0.0-0.4); Lymphocytes Absolute Auto 2.6 X10*3/uL (1.2-4.9); Lymphocytes Percent Auto 15.6 % (20-40); Mean Corpuscular HGB Conc 30.5 g/dl (31.0-36.0); Mean Corpuscular Hemoglobin 23.1 pg (27.0-33.0); Mean Corpuscular Volume 75.6 fL (80-98); Mean Platelet Volume 9.6 fL (9.4-12.4); Monocytes Absolute Auto 1.3 X10*3/uL (0.1-1.2); Monocytes Percent Auto 7.6 % (2-11); Neutrophils Absolute Auto 12.1 X10*3/uL (2.0-8.3); Neutrophils Percent Auto 73.3 % (45-73); Platelet Count 506 X10*3/uL (160-400); Red Blood Count 5.81 X10*6/uL (4.60-5.80); Red Cell Distribution Width 19.2 % (11.0-16.0); White Blood Count 16.6 X10*3/uL (4.8-10.8)
== END 2021-01-06 08:02 | disposition home or self-care (01) ==
LOC: HO.BBR 08:01
PROVIDERS: PCP Internal Medicine; Visit Provider Internal Medicine Medical Oncology
DX: D45 Polycythemia vera (principal)
CPT/HCPCS: 36415; 85014; 85018; 85025; 99195

== ENCOUNTER 2021-01-17 13:20 | Outpatient (REF) | payer MEDICARE, SELFPAY ==
[2021-01-17 15:53] LABS: Urine Cytology See Pathology rpt
== END 2021-01-17 13:21 | disposition home or self-care (01) ==
LOC: HO.LNP 13:20
PROVIDERS: PCP Internal Medicine; Visit Provider Urology
DX: C67.9 Malignant neoplasm of bladder, unspecified (principal); N40.1 Benign prostatic hyperplasia with lower urinary tract symptoms; N13.8 Other obstructive and reflux uropathy; Z87.891 Personal history of nicotine dependence
CPT/HCPCS: 52000; 88112; 99212

== ENCOUNTER 2021-04-10 08:01 | Outpatient (REF) | payer MEDICARE, SELFPAY ==
[2021-04-10 08:10] LABS: MANUAL DIFF FLAG NO
[2021-04-10 08:12] LABS: Basophils Absolute Auto 0.2 X10*3/uL (0.0-0.2); Basophils Percent Auto 1.3 % (0-2); Eosinophils Absolute Auto 0.4 X10*3/uL (0.0-0.4); Eosinophils Percent Auto 2.6 % (0-4); Hematocrit 49.6 % (42.0-52.0); Hemoglobin 15.1 g/dl (14.0-18.0); Imm Gran Abs Auto 0.08 X10*3/uL (0.00-0.03); Imm Gran Pct Auto 0.6 % (0.0-0.4); Lymphocytes Absolute Auto 2.3 X10*3/uL (1.2-4.9); Mean Corpuscular HGB Conc 30.4 g/dl (31.0-36.0); Mean Corpuscular Hemoglobin 23.4 pg (27.0-33.0); Mean Corpuscular Volume 76.9 fL (80.0-98.0); Mean Platelet Volume 9.6 fL (9.4-12.4); Monocytes Percent Auto 6.7 % (2-11); Neutrophils Absolute Auto 10.6 x10*3/uL (2.0-8.3); Neutrophils Percent Auto 72.8 % (45-73); Platelet Count 516 X10*3/uL (160-400); Red Blood Count 6.45 X10*6/uL (4.60-5.80); Red Cell Distribution Width 20.6 % (11.0-16.0); White Blood Count 14.5 X10*3/uL (4.8-10.8)
== END 2021-04-10 08:02 | disposition home or self-care (01) ==
LOC: HO.BBR 08:01
PROVIDERS: PCP Internal Medicine; Visit Provider Internal Medicine Medical Oncology
DX: D45 Polycythemia vera (principal)
CPT/HCPCS: 36415; 85014; 85018; 85025; 99195

== ENCOUNTER 2021-05-30 08:42 | Outpatient (REF) | payer MEDICARE, SELFPAY ==
[2021-05-30 10:25] LABS: Anion Gap 12 (12-20); Blood Urea Nitrogen 22 mg/dL (9-16); Calcium 9.7 mg/dL (8.4-10.2); Carbon Dioxide 31 mmol/L (22-29); Chloride 105 mmol/L (96-108); Estimated Glomerular Filt Rate > 60; Glucose Random 164 mg/dL (60-115); Potassium 4.9 mmol/L (3.3-5.1); Sodium 143 mmol/L (135-145)
[2021-05-30 10:40] LABS: B Type Natriuretic Peptide 166 pg/mL (<100)
== END 2021-05-30 08:43 | disposition home or self-care (01) ==
LOC: HO.LAB 08:42
PROVIDERS: PCP Internal Medicine; Referring Provider Internal Medicine; Visit Provider Internal Medicine Cardiovascular Disease
DX: I11.0 Hypertensive heart disease with heart failure (principal); I50.30 Unspecified diastolic (congestive) heart failure
CPT/HCPCS: 36415; 80048; 83880; 99212

== ENCOUNTER 2021-07-05 13:52 | Outpatient (REF) | payer MEDICARE, SELFPAY ==
[2021-07-05 14:06] LABS: MANUAL DIFF FLAG NO
[2021-07-05 14:08] LABS: Basophils Absolute Auto 0.2 X10*3/uL (0.0-0.2); Basophils Percent Auto 1.2 % (0-2); Eosinophils Absolute Auto 0.3 X10*3/uL (0.0-0.4); Eosinophils Percent Auto 2.3 % (0-4); Hematocrit 52.8 % (42.0-52.0); Hemoglobin 16.1 g/dl (14.0-18.0); Imm Gran Abs Auto 0.13 X10*3/uL (0.00-0.03); Imm Gran Pct Auto 0.9 % (0.0-0.4); Lymphocytes Absolute Auto 1.8 X10*3/uL (1.2-4.9); Lymphocytes Percent Auto 12.2 % (20-40); Mean Corpuscular HGB Conc 30.5 g/dl (31.0-36.0); Mean Corpuscular Hemoglobin 23.6 pg (27.0-33.0); Mean Corpuscular Volume 77.4 fL (80.0-98.0); Mean Platelet Volume 9.4 fL (9.4-12.4); Monocytes Absolute Auto 1.1 X10*3/uL (0.1-1.2); Monocytes Percent Auto 7.3 % (2-11); Neutrophils Absolute Auto 11.3 x10*3/uL (2.0-8.3); Neutrophils Percent Auto 76.1 % (45-73); Platelet Count 632 X10*3/uL (160-400); Red Blood Count 6.82 X10*6/uL (4.60-5.80); Red Cell Distribution Width 19.8 % (11.0-16.0); White Blood Count 14.9 X10*3/uL (4.8-10.8)
== END 2021-07-05 13:53 | disposition home or self-care (01) ==
LOC: HO.BBR 13:52
PROVIDERS: Visit Provider Internal Medicine Medical Oncology
DX: D45 Polycythemia vera (principal)
CPT/HCPCS: 36415; 85025; 99195

== ENCOUNTER 2021-07-18 09:51 | Outpatient (REF) | payer MEDICARE, SELFPAY ==
[2021-07-18 16:22] LABS: Urine Cytology See Pathology rpt
== END 2021-07-18 09:52 | disposition home or self-care (01) ==
LOC: HO.LAB 09:51
PROVIDERS: PCP Internal Medicine; Visit Provider Urology
DX: C67.9 Malignant neoplasm of bladder, unspecified (principal); N40.1 Benign prostatic hyperplasia with lower urinary tract symptoms; N13.8 Other obstructive and reflux uropathy
CPT/HCPCS: 52000; 88112; 99212

== ENCOUNTER 2021-10-11 08:09 | Outpatient (REF) | payer MEDICARE, SELFPAY ==
[2021-10-11 08:24] LABS: MANUAL DIFF FLAG NO
[2021-10-11 08:25] LABS: Basophils Absolute Auto 0.2 X10*3/uL (0.0-0.2); Basophils Percent Auto 1.2 % (0-2); Eosinophils Absolute Auto 0.3 X10*3/uL (0.0-0.4); Eosinophils Percent Auto 2.1 % (0-4); Hematocrit 48.6 % (42.0-52.0); Hemoglobin 15.1 g/dl (14.0-18.0); Imm Gran Pct Auto 0.7 % (0.0-0.4); Lymphocytes Absolute Auto 1.9 X10*3/uL (1.2-4.9); Lymphocytes Percent Auto 13.5 % (20-40); Mean Corpuscular HGB Conc 31.1 g/dl (31.0-36.0); Mean Corpuscular Hemoglobin 23.3 pg (27.0-33.0); Mean Corpuscular Volume 75.1 fL (80.0-98.0); Mean Platelet Volume 9.5 fL (9.4-12.4); Monocytes Percent Auto 6.8 % (2-11); Neutrophils Absolute Auto 10.5 x10*3/uL (2.0-8.3); Neutrophils Percent Auto 75.7 % (45-73); Platelet Count 607 X10*3/uL (160-400); Red Blood Count 6.47 X10*6/uL (4.60-5.80); Red Cell Distribution Width 19.1 % (11.0-16.0); White Blood Count 13.9 X10*3/uL (4.8-10.8)
== END 2021-10-11 08:10 | disposition home or self-care (01) ==
LOC: HO.BBR 08:09
PROVIDERS: Visit Provider Internal Medicine Medical Oncology
DX: D45 Polycythemia vera (principal)
CPT/HCPCS: 36415; 85025; 99195

== ENCOUNTER → 2021-11-28 07:25 | Outpatient (REF) | payer MEDICARE, SELFPAY ==
--- NOTE | 2021-11-28 07:28 | CA_ITS ---
Transthoracic Echocardiogram Patient (Last, First, Middle): Vaibhav Romero R Gender: Male Date of : 1940 Age: 81 Procedure Date: 11/28/2021 Procedure Type: Transthoracic Echocardiogram Location: OP Height: 167.64 cm Weight: 90.72 kg BSA: 2.00 m2 Heart Rate: bpm BP: 132 / 60 mmHg Licensed Professional Counselor: SHRUTHI Referring MD: Enoc Blanca MD Skimmer Scoop Operator: Enoc Blanca MD Symptoms: I50.30 - Unspecified diastolic (congestive) heart failure Study Quality: Fair/contrast ECG Rhythm: Sinus Conclusions: - 1. Normal LV systolic function with mild LVH with grade 3 diastolic dysfunction 2. Mild left atrial enlargement 3. Normal cardiac valvular Doppler 4. Small to moderate pericardial effusion more prominent near the left ventricle Findings Procedure Information Contrast agent, definity, is being given per protocol without apparent complications. Left Ventricle Normal left ventricular size and systolic function. There is mildly increased left ventricular wall thickness. The visually estimated ejection fraction is between 60-65%. Spectral Doppler is indicative of a restrictive filling pattern. E/E prime ratio is >15, consistent with elevated filling pressures. Evidence suggests grade III (severe) diastolic dysfunction. Right Ventricle Normal right ventricular cavity size and systolic function. Atria The left atrium is mildly dilated. Interatrial shunt cannot be excluded. The right atrium is normal in size. Aortic Valve The aortic valve was not well visualized. There is no aortic valve stenosis. There is no aortic valve regurgitation. Mitral Valve There is mild anterior mitral leaflet thickening. There is mild mitral annular calcification. There is trace mitral valve regurgitation. There is no mitral valve stenosis. Pulmonic Valve The pulmonic valve was not well visualized. Tricuspid Valve The tricuspid valve was not well visualized. Tricuspid regurgitation envelope is inadequate for calculation of right ventricular systolic pressure. Great Vessels All visible segments of the aorta are normal in size. The pulmonary artery was not well visualized. Venous The inferior vena cava was not well visualized. Pericardium/Pleural There is a moderate loculated pericardial effusion overlying the left ventricle. Measurements 2D Linear Measurements IVSd: 1.15 0.6-0.9/0.6-1.0 cm LVIDd: 4.99 3.9-5.3/4.2-5.9 cm LVIDd Index: 2.50 2.4-3.2/2.2-3.1 cm/m2 LVIDs: 3.47 2.0-3.6 cm LVPWd: 1.36 0.7-1.1 cm LA Diam: 3.60 2.7-3.8/3.0-4.0 cm LAIDs Index: 1.80 1.5-2.3 cm/m2 LV Mass: 309.53 67-162/88-224 g LV Mass Index: 154.76 43-95/49-115 g/m2 LVOT Diam: 2.10 3.0+(-)1.3 cm 2D Systolic Function EF 4C: 62.00 >55% EF 2C: 63.40 >55% EF BiP: 62.80 >55% Mitral Valve MV Pk E: 1.25 MV PK A: 0.74 MV Decel Time: 200.00 E/A: 1.70 E'Lateral: 7.40 E'Medial: 6.09 E/E' Med: 20.50 E/E' Lat: 16.90 PHT: 59.00 MVA PHT: 3.73 Decel [place]: 6.26 Aortic Valve AoV Pk Mekhi: 1.81 AoV Mn M[place]hi: 1.25 AoV VTI: 0.49 AoV Pk Grad: 13.00 Aov Mn Grad: 7.00 YAYA Cont.VTI: 2.13 LVOT LVOT Pk Mekhi: 1.12 LVOT Mn [place]: 0.78 LVOT VTI: 0.30 LVOT Pk Grad: 5.00 LVOT Mn Grad: 3.00 LVOT Diam: 2.10 LVOT Area: 3.46 Diastolic Function MV Pk E: 1.25 MV Pk A: 0.74 E/A: 1.70 E'Medial: 6.09 E/E' Med: 20.50 E' Laterial: 7.40 E/E' Lat: 16.90 Right Ventricle TAPSE (mm): 2.54 TVS' Mekhi: 13.80 Tricuspid Valve TR Pk Mekhi: 1.51 TR Pk Grad: 9.00 Great Vessels Aorta Sinus of Valsalva: 2.91 2.0-3.[address] [place]: 2.32 1.7-3.4 cm Ao Asc: 3.40 2.1-3.4 cm Updated in Other Vendor System with Status of Final Enoc Blanca MD electronically signed on 11/28/2021 1:22:14 PM with status of Final
== END ==
LOC: HO.CARD 07:25
PROVIDERS: Visit Provider Internal Medicine Cardiovascular Disease
DX: I50.30 Unspecified diastolic (congestive) heart failure (principal)
CPT/HCPCS: 93306; Q9957

== ENCOUNTER → 2021-11-30 10:17 | Outpatient (BNVA) | payer MEDICARE, SELFPAY | PROVIDERS: PCP Internal Medicine; Referring Provider Internal Medicine; Visit Provider Internal Medicine Cardiovascular Disease | DX: I11.0 Hypertensive heart disease with heart failure (principal); I50.30 Unspecified diastolic (congestive) heart failure; R00.1 Bradycardia, unspecified | CPT/HCPCS: 93005; 99212 ==

== ENCOUNTER 2022-01-11 08:06 | Outpatient (REF) | payer MEDICARE, SELFPAY ==
[2022-01-11 08:17] LABS: MANUAL DIFF FLAG NO
[2022-01-11 08:20] LABS: Basophils Absolute Auto 0.2 X10*3/uL (0.0-0.2); Basophils Percent Auto 1.3 % (0-2); Eosinophils Absolute Auto 0.3 X10*3/uL (0.0-0.4); Eosinophils Percent Auto 1.7 % (0-4); Hematocrit 49.4 % (42.0-52.0); Hemoglobin 15.6 g/dl (14.0-18.0); Imm Gran Abs Auto 0.13 X10*3/uL (0.00-0.03); Imm Gran Pct Auto 0.8 % (0.0-0.4); Lymphocytes Absolute Auto 2.1 X10*3/uL (1.2-4.9); Lymphocytes Percent Auto 13.1 % (20-40); Mean Corpuscular HGB Conc 31.6 g/dl (31.0-36.0); Mean Corpuscular Hemoglobin 23.7 pg (27.0-33.0); Mean Corpuscular Volume 75.2 fL (80.0-98.0); Mean Platelet Volume 9.4 fL (9.4-12.4); Monocytes Absolute Auto 1.1 X10*3/uL (0.1-1.2); Monocytes Percent Auto 6.9 % (2-11); Neutrophils Absolute Auto 12.4 x10*3/uL (2.0-8.3); Neutrophils Percent Auto 76.2 % (45-73); Platelet Count 674 X10*3/uL (160-400); Red Blood Count 6.57 X10*6/uL (4.60-5.80); White Blood Count 16.3 X10*3/uL (4.8-10.8)
== END 2022-01-11 08:07 | disposition home or self-care (01) ==
LOC: HO.BBR 08:06
PROVIDERS: Visit Provider Internal Medicine Medical Oncology
DX: D45 Polycythemia vera (principal)
CPT/HCPCS: 36415; 85025; 99195

== ENCOUNTER 2022-01-16 10:01 | Outpatient (REF) | payer MEDICARE, SELFPAY ==
[2022-01-16 16:33] LABS: Urine Cytology See Pathology rpt
== END 2022-01-16 10:02 | disposition home or self-care (01) ==
LOC: HO.LAB 10:01
PROVIDERS: Visit Provider Urology
DX: C67.9 Malignant neoplasm of bladder, unspecified (principal); N40.1 Benign prostatic hyperplasia with lower urinary tract symptoms; N13.8 Other obstructive and reflux uropathy
CPT/HCPCS: 52000; 88112; 99212

== ENCOUNTER 2022-04-12 08:08 | Emergency (ER) | payer MEDICARE, SELFPAY ==
--- NOTE | ~2022-04-12 | CT_ITS ---
EXAMINATION: CT HEAD WITHOUT CONTRAST CLINICAL INFORMATION: Weakness, confusion. COMPARISON: None TECHNIQUE: Contiguous axial imaging was performed from the skull base to vertex without intravenous administration of contrast. Coronal and sagittal reformatted images were obtained. This CT examination was performed using dose optimization techniques as appropriate, variously including the following: *Automated exposure control *Adjustment of mA and/or kV according to patient size (this includes techniques or standardized protocols for targeted exams where dose is matched to indication/reason for exam; i.e. extremities or head) *Use of iterative reconstruction technique DLP: 704 mGy-cm FINDINGS: There is mild widening of the cortical sulci and associated ventriculomegaly. The lateral ventricles are symmetrical. Mild periventricular microvascular changes are seen. The third and fourth ventricles are in their normal midline position. The basilar and prepontine cisterns are unremarkable. There is no acute intra or extracerebral abnormality. There is no mass effect or midline shift. Sections through the bony calvarium are unremarkable. The orbits are intact. The paranasal sinuses show mild mucosal thickening in the ethmoid sinuses bilaterally. Moderate mucosal thickening is seen in the left sphenoid sinus with probable retention cyst versus inflammatory polyp with benign-appearing central calcifications. No air-fluid levels. The mastoid air cells are clear. CT/CT head/brain wo IV con IMPRESSION: 1. No acute intracranial pathology. 2. Ethmoid and sphenoid sinus inflammatory changes as detailed above.
--- NOTE | ~2022-04-12 | XR_ITS ---
EXAMINATION: XR CHEST CLINICAL INFORMATION: Weakness COMPARISON: 07/27/2020 TECHNIQUE: Frontal view of the chest was obtained. FINDINGS: No significant abnormality is noted involving the heart, lungs, mediastinum, bony thorax or soft tissues. XR/XR chest 1V IMPRESSION: Unremarkable examination.
[2022-04-12 08:17] VITALS: BP 157/56; PULSE 66; RESP 21; TEMP 36.5; O2SAT 93
--- NOTE | 2022-04-12 08:19 | ED.GENADULT ---
HPI - General Adult General Chief complaint: General Medical Stated complaint: disorented Time Seen by Provider: 04/12/22 08:11 Source: patient and old records reviewed Mode of arrival: ambulatory Limitations: no limitations History of Present Illness HPI narrative: 81-year-old male with history of macular degeneration, legally blind, NIGEL, BPH with bladder cancer, anemia, HFpEF, HTN, obesity, hx chronic UTI presenting to the ER from home for evaluation of feeling ?wobbly.? Patient was due to go get his routine phlebotomy for his polycythemia when family went to pick him up for the appointment he was still in bed and not ready. This is not his baseline. Patient states he woke up this morning he felt unsteady on his feet and weak. He had taken his medications this morning with nothing in the stomach and vomited them right back up. He no longer has any nausea. He feels some generalized weakness and unsteadiness when he walks but no focal weakness. Denies any speech or swallowing issues. Denies any fever or chills. No urinary symptoms. Patient's family said that he had some blood at the side of his mouth this morning when they went to pick him up. He denies blood in his vomitus. MD complaint: Generalized weakness Onset (ago): hour(s) Severity: moderate Pain Consistency: intermittent Relieving factors: rest Exacerbating factors: movement Associated symptoms: loss of appetite, malaise, nausea/vomiting and weakness Treatments prior to arrival: none Related Data Home Medications Medication Instructions Recorded Confirmed aspirin 81 mg tablet,delayed 81 mg PO DAILY 03/30/20 02/23/22 release (Adult Low Dose Aspirin) brimonidine 0.1 % eye drops 1 drp ophthalmic-Right TID 06/06/20 02/23/22 (Alphagan P) vit C 250 mg-vit E 90 mg-zinc 40 1 tab PO BID 06/06/20 02/23/22 mg-copper 1 [id number] capsule (PreserVision AREDS-2) dorzolamide 22.3 mg-timolol 6.8 22.3 ml ophthalmic (eye) BEDTIME 01/17/21 02/23/22 mg/mL eye drops latanoprost 0.005 % eye drops 1 drp ophthalmic-Right BEDTIME 01/17/21 02/23/22 Previous Rx's Medication Instructions Recorded bumetanide 2 mg tablet 2 mg PO DAILY #90 tabs 09/27/21 amlodipine 10 mg tablet 10 mg PO DAILY #90 tabs 12/11/21 spironolactone 25 mg tablet 12.5 mg PO DAILY 90 days #45 tabs 01/01/22 clonidine HCl 0.1 mg tablet 0.1 mg PO BEDTIME #90 tabs 01/05/22 terazosin 5 mg capsule 5 mg PO BEDTIME #90 caps 01/05/22 atenolol 50 mg tablet 50 mg PO DAILY #90 tabs 03/30/22 cefuroxime axetil 250 mg tablet 250 mg PO BID 7 days #14 tabs 04/12/22 Allergies Allergy/AdvReac Type Severity Reaction Status Date / Time No Known Allergies Allergy Verified 02/23/22 09:07 [No Known Allergies*] Review of Systems Review of Systems: Constitutional: No Fever, No Chills ENT/Mouth: No sore throat, No Rhinorrhea, No Swallowing Difficulty Eyes: No Eye Pain, No Swelling, No Redness, No vision changes Cardiovascular: No Chest Pain, No SOB, No Orthopnea, No Edema Respiratory: No Cough, No Sputum, No Wheezing, No dyspnea Gastrointestinal: No Nausea, No Vomiting, No Diarrhea, No abdominal Pain, No Hematochezia, No Melena Genitourinary: No Dysuria, No Urinary Frequency, No Hematuria Musculoskeletal: No joint pain, No Myalgias Skin: No Skin Lesions, No rash Neuro: + Weakness, No Numbness, +Dizziness, No Headache Psych: No Anxiety/Panic, No Depression Heme/Lymph: No Bruising, No Lymphadenopathy Endocrine: No Polyuria, No Polydipsia PMFSH Past Medical History Medical History (HFpEF) heart failure with preserved ejection fraction Anemia Bladder cancer Glaucoma Hyperkalemia Hypertension, essential JAK2 gene mutation Obesity P. vera Urothelial cancer Surgical History H/O cystoscopy History of tonsillectomy Hx of cholecystectomy Family History Family History Father Liver cancer Cancer Mother CVD (cardiovascular disease) Breast cancer Brother No problems noted. Maternal Grandmother Cancer Maternal Grandfather Cancer Maternal Uncle Cancer Social History Social History Household Members: None Housing: House Are you a primary eye care professional to a significant other at home: No Do you presently have visiting nurse or other home services: No Alcohol intake: never Patient Tobacco Use Status: Former Tobacco user Quit Date: quit 50 years Smoked in Last 30 Days: No Use of substances other than those prescribed or required for medical reasons: No Advance Directives: Yes Advance Directives on File: Yes Advance Directives Date on File: 07/27/20 service: No Current occupational status: retired Physical Exam ED Vital Signs: Vital Signs - 24 hr 04/12/22 08:17 04/12/22 08:47 04/12/22 10:43 Temperature 97.7 F 98.1 F 97.7 F Pulse Rate 66 62 60 Respiratory Rate 21 H 16 21 H Blood Pressure 157/56 H 148/70 H 146/55 H Pulse Oximetry 93 92 97 Oxygen Delivery Method Room Air Room Air Nasal Cannula Oxygen Flow Rate 2 04/12/22 11:47 04/12/22 11:51 Temperature 97.6 F Pulse Rate 60 57 Respiratory Rate 16 Blood Pressure 146/55 H 146/56 H Pulse Oximetry 97 96 Oxygen Delivery Method Nasal Cannula Oxygen Flow Rate 2 BMI result Body Mass Index 33.0 Appearance: Alert. Oriented X3. No acute distress. Eyes: Pupils equal, round and reactive to light. EOMI. No nystagmus. ENT: Pharynx with moist mucus membranes. dried blood on the right side of the mouth, small tongue lac. Neck: Normal inspection. Neck supple. CVS: Normal heart rate and rhythm. Pulses normal. Respiratory: No respiratory distress. Breath sounds normal. Abdomen: Soft and nontender. +BS x4 Skin: Skin warm and dry. Normal skin color. Normal skin turgor. No rashes. Extremities: 1+ lower extremity edema, no calf tenderness. Neuro: Oriented X 3. No motor deficit. No sensory deficit. CN II-XII intact. Strength equal and symmetrical throughout. Course Course Course Narrative: 81-year-old male presents to the ER for evaluation of generalized weakness. Question of seizure with a small tongue laceration blood inside of his mouth. No 6 history of seizure. He is nonfocal on neuro exam. Will get basic lab workup, CT of his head, EKG, urinalysis. History of UTIs in the past. Reevaluation(s) Reevaluation #1: Lab workup revealing a WBC 17.3. He has a chronic leukocytosis, last was 16.3 in January. He has never been below 13.9 in the last year. Normal lactic acid. Patient is not septic. Normal CPK. Doubt seizure. Urinalysis consistent with UTI with positive nitrates. Will give 1 dose of IV Rocephin here. Will have Physical therapy evaluate him for generalized weakness. Patient would like to be discharged home with PT if possible. He lives home alone Reevaluation #2: Patient seen by Physical therapy who is recommending discharge home with services. Case Management on board. Patient given for social Rocephin. Will sent home on oral antibiotics for 1 week. Comfortable discharge home. Brother to come pick him up. Medications Administered Discontinued Medications Generic Name Dose Route Start Last Admin Trade Name Freq PRN Reason Stop Dose Admin Ceftriaxone Sodium 1 gm/ 50 mls @ 100 mls/hr 04/12/22 11:13 04/12/22 12:41 Sodium Chloride IV 04/12/22 11:42 100 mls/hr ONCE ONE Administration Medical Decision Making Lab Data Result diagrams: 04/12/22 09:09 04/12/22 09:09 Labs: Lab Results 04/12/22 04/12/22 04/12/22 Range/Units 09:09 09:09 09:09 WBC 17.3 H (4.8-10.8) X10*3/uL RBC 6.32 H (4.60-5.80) X10*6/uL Hgb 15.2 (14.0-18.0) g/dl Hct 48.6 (42.0-52.0) % MCV 76.9 L (80.0-98.0) fL MCH 24.1 L (27.0-33.0) pg MCHC 31.3 (31.0-36.0) g/dl RDW 18.0 H (11.0-16.0) % Plt Count 648 H (160-400) X10*3/uL MPV 9.5 (9.4-12.4) fL Immature Gran % (Auto) 1.0 H (0.0-0.4) % Neut % (Auto) 85.9 H (45-73) % Lymph % (Auto) 5.8 L (20-40) % Sierra % (Auto) 5.6 (2-11) % Eos % (Auto) 0.7 (0-4) % Baso % (Auto) 1.0 (0-2) % Lymph # (Auto) 1.0 L (1.2-4.9) X10*3/uL Sierra # (Auto) 1.0 (0.1-1.2) X10*3/uL Eos # (Auto) 0.1 (0.0-0.4) X10*3/uL Baso # (Auto) 0.2 (0.0-0.2) X10*3/uL Abs Immat Gran (auto) 0.18 H (0.00-0.03) X10*3/uL Absolute Neuts (auto) 14.8 H (2.0-8.3) x10*3/uL Absolute Nucleated RBC 0.000 (0.0-0.012) X10*3/uL Nucleated RBC % (auto) 0.0 (0.0-0.2) /100WBC VBG pH (7.32-7.43) VBG pCO2 mmHg VBG pO2 mmHg VBG HCO3 (22-26) mmol/L VBG O2 Saturation % VBG Base Excess mmol/L Sodium 136 (135-145) mmol/L Potassium 4.1 (3.3-5.1) mmol/L Chloride 102 (96-108) mmol/L Carbon Dioxide 27 (22-29) mmol/L Anion Gap 11 L (12-20) BUN 26 H (9-16) mg/dL Creatinine 1.00 (0.5-1.4) mg/dL Estim Creat Clear Calc 62.8 Estimated GFR > 60 Random Glucose 117 H (60-115) mg/dL Lactic Acid (0.5-2.0) mmol/L Calcium 9.7 D (8.4-10.2) mg/dL Magnesium 2.4 (1.6-2.6) mg/dL Total Bilirubin 1.0 (0.0-1.0) mg/dL Direct Bilirubin 0.3 (0.0-0.5) mg/dL AST 18 (5-37) U/L ALT 12 (0-40) U/L Alkaline Phosphatase 79 (39-117) U/L Total Creatine Kinase (38-174) U/L B-Natriuretic Peptide 197 H (<100) pg/mL Total Protein 6.3 L (6.5-8.0) g/dL Albumin 3.9 (3.5-5.0) g/dL TSH 1.09 (0.32-4.0) uIU/mL Urine Color Urine Appearance Urine pH (5.0-9.0) Ur Specific Aspen (1.005-1.025) Urine Protein (Neg-Trace) mg/dL Urine Glucose (UA) (Negative) mg/dL Urine Ketones (Negative) mg/dL Urine Blood (Negative) Urine Nitrite (Negative) Ur Leukocyte Esterase (Negative) Urine RBC (0-2) /HPF Urine WBC (0-5) /HPF Ur Squamous Epith Cells (0-2) /HPF Urine Bacteria (None Seen) Hyaline Casts (0-2) /LPF Urine Opiates Screen (Not Detect) Urine Fentanyl Screen (Not Detect) Ur Barbiturates Screen (Not Detect) Ur Phencyclidine Scrn (Not Detect) Ur Amphetamines Screen (Not Detect) U Benzodiazepines Scrn (Not Detect) Urine Cocaine Screen (Not Detect) U Marijuana (THC) Screen (Not Detect) Ethyl Alcohol < 10 mg/dL COVID-19 ([facility]) (Negative) COVID-19 Clin Com 04/12/22 04/12/22 04/12/22 Range/Units 09:09 09:09 09:09 WBC (4.8-10.8) X10*3/uL RBC (4.60-5.80) X10*6/uL Hgb (14.0-18.0) g/dl Hct (42.0-52.0) % MCV (80.0-98.0) fL MCH (27.0-33.0) pg MCHC (31.0-36.0) g/dl RDW (11.0-16.0) % Plt Count (160-400) X10*3/uL MPV (9.4-12.4) fL Immature Gran % (Auto) (0.0-0.4) % Neut % (Auto) (45-73) % Lymph % (Auto) (20-40) % Sierra % (Auto) (2-11) % Eos % (Auto) (0-4) % Baso % (Auto) (0-2) % Lymph # (Auto) (1.2-4.9) X10*3/uL Sierra # (Auto) (0.1-1.2) X10*3/uL Eos # (Auto) (0.0-0.4) X10*3/uL Baso # (Auto) (0.0-0.2) X10*3/uL Abs Immat Gran (auto) (0.00-0.03) X10*3/uL Absolute Neuts (auto) (2.0-8.3) x10*3/uL Absolute Nucleated RBC (0.0-0.012) X10*3/uL Nucleated RBC % (auto) (0.0-0.2) /100WBC VBG pH (7.32-7.43) VBG pCO2 mmHg VBG pO2 mmHg VBG HCO3 (22-26) mmol/L VBG O2 Saturation % VBG Base Excess mmol/L Sodium (135-145) mmol/L Potassium (3.3-5.1) mmol/L Chloride (96-108) mmol/L Carbon Dioxide (22-29) mmol/L Anion Gap (12-20) BUN (9-16) mg/dL Creatinine (0.5-1.4) mg/dL Estim Creat Clear Calc Estimated GFR Random Glucose (60-115) mg/dL Lactic Acid 1.4 (0.5-2.0) mmol/L Calcium (8.4-10.2) mg/dL Magnesium (1.6-2.6) mg/dL Total Bilirubin (0.0-1.0) mg/dL Direct Bilirubin (0.0-0.5) mg/dL AST (5-37) U/L ALT (0-40) U/L Alkaline Phosphatase (39-117) U/L Total Creatine Kinase 155 (38-174) U/L B-Natriuretic Peptide (<100) pg/mL Total Protein (6.5-8.0) g/dL Albumin (3.5-5.0) g/dL TSH (0.32-4.0) uIU/mL Urine Color Urine Appearance Urine pH (5.0-9.0) Ur Specific Aspen (1.005-1.025) Urine Protein (Neg-Trace) mg/dL Urine Glucose (UA) (Negative) mg/dL Urine Ketones (Negative) mg/dL Urine Blood (Negative) Urine Nitrite (Negative) Ur Leukocyte Esterase (Negative) Urine RBC (0-2) /HPF Urine WBC (0-5) /HPF Ur Squamous Epith Cells (0-2) /HPF Urine Bacteria (None Seen) Hyaline Casts (0-2) /LPF Urine Opiates Screen (Not Detect) Urine Fentanyl Screen (Not Detect) Ur Barbiturates Screen (Not Detect) Ur Phencyclidine Scrn (Not Detect) Ur Amphetamines Screen (Not Detect) U Benzodiazepines Scrn (Not Detect) Urine Cocaine Screen (Not Detect) U Marijuana (THC) Screen (Not Detect) Ethyl Alcohol mg/dL COVID-19 ([facility]) Negative (Negative) COVID-19 Clin Com See Note 04/12/22 04/12/22 04/12/22 Range/Units 09:17 10:50 10:50 WBC (4.8-10.8) X10*3/uL RBC (4.60-5.80) X10*6/uL Hgb (14.0-18.0) g/dl Hct (42.0-52.0) % MCV (80.0-98.0) fL MCH (27.0-33.0) pg MCHC (31.0-36.0) g/dl RDW (11.0-16.0) % Plt Count (160-400) X10*3/uL MPV (9.4-12.4) fL Immature Gran % (Auto) (0.0-0.4) % Neut % (Auto) (45-73) % Lymph % (Auto) (20-40) % Sierra % (Auto) (2-11) % Eos % (Auto) (0-4) % Baso % (Auto) (0-2) % Lymph # (Auto) (1.2-4.9) X10*3/uL Sierra # (Auto) (0.1-1.2) X10*3/uL Eos # (Auto) (0.0-0.4) X10*3/uL Baso # (Auto) (0.0-0.2) X10*3/uL Abs Immat Gran (auto) (0.00-0.03) X10*3/uL Absolute Neuts (auto) (2.0-8.3) x10*3/uL Absolute Nucleated RBC (0.0-0.012) X10*3/uL Nucleated RBC % (auto) (0.0-0.2) /100WBC VBG pH 7.41 (7.32-7.43) VBG pCO2 37 mmHg VBG pO2 49 mmHg VBG HCO3 23 (22-26) mmol/L VBG O2 Saturation 79.0 % VBG Base Excess -0.3 mmol/L Sodium (135-145) mmol/L Potassium (3.3-5.1) mmol/L Chloride (96-108) mmol/L Carbon Dioxide (22-29) mmol/L Anion Gap (12-20) BUN (9-16) mg/dL Creatinine (0.5-1.4) mg/dL Estim Creat Clear Calc Estimated GFR Random Glucose (60-115) mg/dL Lactic Acid (0.5-2.0) mmol/L Calcium (8.4-10.2) mg/dL Magnesium (1.6-2.6) mg/dL Total Bilirubin (0.0-1.0) mg/dL Direct Bilirubin (0.0-0.5) mg/dL AST (5-37) U/L ALT (0-40) U/L Alkaline Phosphatase (39-117) U/L Total Creatine Kinase (38-174) U/L B-Natriuretic Peptide (<100) pg/mL Total Protein (6.5-8.0) g/dL Albumin (3.5-5.0) g/dL TSH (0.32-4.0) uIU/mL Urine Color Yellow Urine Appearance Clear Urine pH 6.0 (5.0-9.0) Ur Specific Aspen 1.015 (1.005-1.025) Urine Protein Trace (Neg-Trace) mg/dL Urine Glucose (UA) Negative (Negative) mg/dL Urine Ketones Negative (Negative) mg/dL Urine Blood Trace H (Negative) Urine Nitrite Positive H (Negative) Ur Leukocyte Esterase Negative (Negative) Urine RBC 0-2 (0-2) /HPF Urine WBC 0-5 (0-5) /HPF Ur Squamous Epith Cells 0-2 (0-2) /HPF Urine Bacteria 4+ (None Seen) Hyaline Casts 0-2 (0-2) /LPF Urine Opiates Screen Not Detected (Not Detect) Urine Fentanyl Screen Not Detected (Not Detect) Ur Barbiturates Screen Not Detected (Not Detect) Ur Phencyclidine Scrn Not Detected (Not Detect) Ur Amphetamines Screen Not Detected (Not Detect) U Benzodiazepines Scrn Not Detected (Not Detect) Urine Cocaine Screen Not Detected (Not Detect) U Marijuana (THC) Screen Not Detected (Not Detect) Ethyl Alcohol mg/dL COVID-19 ([facility]) (Negative) COVID-19 Clin Com Discharge Plan Discharge Clinical Impression: Acute UTI Patient Disposition: Home, Self-Care Instructions: Urinary Tract Infection in Men (ED) Additional Instructions: Your workup today showed your urinary tract infection. Your given 1st dose of IV antibiotics today. Take the prescribed oral antibiotic starting 1st thing tomorrow morning. Home physical therapy services are being arranged for you. Rest and stay hydrated. Recommend following up with your doctor. If you develop new or worsening symptoms call 911 or come back to the ER for further evaluation. Prescriptions: New cefuroxime axetil 250 mg tablet 250 mg PO BID 7 Days Qty: 14 0RF No Action bumetanide 2 mg tablet 2 mg PO DAILY Qty: 90 1RF amlodipine 10 mg tablet 10 mg PO DAILY Qty: 90 0RF spironolactone 25 mg tablet 12.5 mg PO DAILY 90 Days Qty: 45 3RF terazosin 5 mg capsule 5 mg PO BEDTIME Qty: 90 2RF clonidine HCl 0.1 mg tablet 0.1 mg PO BEDTIME Qty: 90 0RF atenolol 50 mg tablet 50 mg PO DAILY Qty: 90 0RF Alphagan P 0.1 % drops 1 drp ophthalmic-Right TID PreserVision AREDS-2 250-90-40-1 mg Capsule 1 tab PO BID aspirin [Adult Low Dose Aspirin] 81 mg tablet,delayed release (DR/EC) 81 mg PO DAILY dorzolamide-timolol 22.3-6.8 mg/mL drops 22.3 ml ophthalmic (eye) BEDTIME latanoprost 0.005 % drops 1 drp ophthalmic-Right BEDTIME
[2022-04-12 08:47] VITALS: BP 148/70; PULSE 62; RESP 16; TEMP 36.7; O2SAT 92; BMI 33.0
[2022-04-12 09:16] LABS: MANUAL DIFF FLAG NO
[2022-04-12 09:22] LABS: Venous Blood Gas Refer to POC result
[2022-04-12 09:23] LABS: VBG Base Excess -0.3 mmol/L; VBG HCO3 23 mmol/L (22-26); VBG pCO2 37 mmHg; VBG pH 7.41 (7.32-7.43); VBG pO2 49 mmHg
[2022-04-12 09:23] LABS: Basophils Absolute Auto 0.2 X10*3/uL (0.0-0.2); Eosinophils Absolute Auto 0.1 X10*3/uL (0.0-0.4); Eosinophils Percent Auto 0.7 % (0-4); Hematocrit 48.6 % (42.0-52.0); Hemoglobin 15.2 g/dl (14.0-18.0); Imm Gran Abs Auto 0.18 X10*3/uL (0.00-0.03); Lymphocytes Percent Auto 5.8 % (20-40); Mean Corpuscular HGB Conc 31.3 g/dl (31.0-36.0); Mean Corpuscular Hemoglobin 24.1 pg (27.0-33.0); Mean Corpuscular Volume 76.9 fL (80.0-98.0); Mean Platelet Volume 9.5 fL (9.4-12.4); Monocytes Percent Auto 5.6 % (2-11); Neutrophils Absolute Auto 14.8 x10*3/uL (2.0-8.3); Neutrophils Percent Auto 85.9 % (45-73); Platelet Count 648 X10*3/uL (160-400); Red Blood Count 6.32 X10*6/uL (4.60-5.80); White Blood Count 17.3 X10*3/uL (4.8-10.8)
[2022-04-12 09:35] LABS: Lactic Acid 1.4 mmol/L (0.5-2.0)
[2022-04-12 09:36] LABS: COVID-19 Test Negative (Negative); IDNOW Serial# 16C4AD1C
[2022-04-12 09:45] LABS: B Type Natriuretic Peptide 197 pg/mL (<100)
[2022-04-12 10:06] LABS: Alanine Aminotransferase 12 U/L (0-40); Albumin Level 3.9 g/dL (3.5-5.0); Alkaline Phosphatase 79 U/L (39-117); Anion Gap 11 (12-20); Aspartate Amino Transferase 18 U/L (5-37); Bilirubin Direct 0.3 mg/dL (0.0-0.5); Blood Urea Nitrogen 26 mg/dL (9-16); Calcium 9.7 mg/dL (8.4-10.2); Carbon Dioxide 27 mmol/L (22-29); Chloride 102 mmol/L (96-108); Creatinine Clr Calc Pharmacy 62.8; Estimated Glomerular Filt Rate > 60; Ethanol < 10 mg/dL; Glucose Random 117 mg/dL (60-115); Magnesium 2.4 mg/dL (1.6-2.6); Potassium 4.1 mmol/L (3.3-5.1); Sodium 136 mmol/L (135-145); TSH reflex Free T4 1.09 uIU/mL (0.32-4.0); Total Protein 6.3 g/dL (6.5-8.0)
--- NOTE | 2022-04-12 10:11 | PC.NURSE ---
pt is a/o x 3 no sob/cathy noted lungs - cta, except rll is diminished. speaks in full sentences. heart sounds - irregular. abd round soft and non-tender, bs + x 4 quads. no edema noted. heplock # 20 r forearm. pt aware of plan of care.
[2022-04-12 10:43] VITALS: BP 146/55; PULSE 60; RESP 21; TEMP 36.5; O2SAT 97
[2022-04-12 11:06] LABS: Appearance Urine Clear; Color Urine Yellow; Glucose Urine UA Negative (Negative); Leukocyte Esterase Urine Negative (Negative); Nitrite Urine Positive (Negative); Specific Gravity - Urine 1.015 (1.005-1.025); UMIC TRIGGER UACC YES; Urine Blood Trace (Negative); Urine Ketones Negative (Negative); Urine Protein Trace mg/dL (Neg-Trace)
[2022-04-12 11:08] LABS: Bacteria Urine 4+ (None Seen); Hyaline Casts Urine 0-2 /LPF (0-2); RBC Urine 0-2 /HPF (0-2); Squamous Epithelial Cell Urine 0-2 /HPF (0-2); UACC Culture Trigger YES; WBC Urine 0-5 /HPF (0-5)
[2022-04-12 11:16] LABS: Amphetamine Screen Urine Not Detected (Not Detect); Barbiturates, Urine Not Detected (Not Detect); Benzodiazepines Screen Urine Not Detected (Not Detect); Cannabinoid Screen Urine Not Detected (Not Detect); Cocaine Screen Urine Not Detected (Not Detect); Fentanyl, urine Not Detected (Not Detect); Opiate Screen Urine Not Detected (Not Detect); Phencyclidine Screen Urine Not Detected (Not Detect)
[2022-04-12 11:47] VITALS: BP 146/55; PULSE 60; O2SAT 97
[2022-04-12 11:51] VITALS: BP 146/56; PULSE 57; RESP 16; TEMP 36.4; O2SAT 96
[2022-04-12] MEDS: cefTRIAXone sodium 1 GM in 0.9 % Sodium Chloride 50 ML IV (12:41)
[2022-04-12 13:27] VITALS: BP 151/60; PULSE 63; RESP 13; TEMP 36.5; O2SAT 97
--- NOTE | 2022-04-12 13:40 | PC.NURSE ---
this rn attempted to call pt's brother flakito ([phone]) without any success. pt to be d/c'd home.
--- NOTE | 2022-04-12 13:48 | MHC.CM.ED ---
Received case management consult from [facility]. Patient came to ER due to disorientation. Work up essentially negative. Physical therapy eval completed. Home therapy recommended. PCP is Liza Beard. Referral made to [facility] for correction and physical therapy. Continue to monitor for d/c needs.
== END 2022-04-12 14:29 | disposition home or self-care (01) ==
PROVIDERS: Physician Assistant; Emergency Provider Emergency Medicine; PCP Internal Medicine
DX: N39.0 Urinary tract infection, site not specified (principal); B95.7 Other staphylococcus as the cause of diseases classified elsewhere; R53.1 Weakness; Z20.822 Contact with and (suspected) exposure to COVID-19; I11.0 Hypertensive heart disease with heart failure; I50.30 Unspecified diastolic (congestive) heart failure; Z85.46 Personal history of malignant neoplasm of prostate; Z79.82 Long term (current) use of aspirin; Z79.899 Other long term (current) drug therapy; Z87.891 Personal history of nicotine dependence
CPT/HCPCS: 36415; 70450; 71045; 80048; 80076; 80307; 81001; 81003; 82077; 82550; 82803; 83605; 83735; 83880; 84443; 85025; 87040; 87086; 87088; 87186; 87635; 96365; 97162; 99284; J0696

== ENCOUNTER 2022-04-25 08:05 | Outpatient (REF) | payer MEDICARE, SELFPAY ==
[2022-04-25 08:25] LABS: MANUAL DIFF FLAG NO
[2022-04-25 08:28] LABS: Basophils Absolute Auto 0.2 X10*3/uL (0.0-0.2); Basophils Percent Auto 1.3 % (0-2); Eosinophils Absolute Auto 0.3 X10*3/uL (0.0-0.4); Eosinophils Percent Auto 2.6 % (0-4); Hematocrit 45.9 % (42.0-52.0); Hemoglobin 14.4 g/dl (14.0-18.0); Imm Gran Pct Auto 0.8 % (0.0-0.4); Lymphocytes Absolute Auto 2.4 X10*3/uL (1.2-4.9); Lymphocytes Percent Auto 18.2 % (20-40); Mean Corpuscular HGB Conc 31.4 g/dl (31.0-36.0); Mean Corpuscular Hemoglobin 24.3 pg (27.0-33.0); Mean Corpuscular Volume 77.4 fL (80.0-98.0); Mean Platelet Volume 9.8 fL (9.4-12.4); Monocytes Absolute Auto 0.9 X10*3/uL (0.1-1.2); Monocytes Percent Auto 6.6 % (2-11); Neutrophils Absolute Auto 9.4 x10*3/uL (2.0-8.3); Neutrophils Percent Auto 70.5 % (45-73); Platelet Count 624 X10*3/uL (160-400); Red Blood Count 5.93 X10*6/uL (4.60-5.80); Red Cell Distribution Width 18.5 % (11.0-16.0); White Blood Count 13.3 X10*3/uL (4.8-10.8)
== END 2022-04-25 08:06 | disposition home or self-care (01) ==
LOC: HO.BBR 08:05
PROVIDERS: Visit Provider Internal Medicine Medical Oncology
DX: D45 Polycythemia vera (principal)
CPT/HCPCS: 36415; 85025; 99195

== ENCOUNTER 2022-06-04 11:00 | Outpatient (RCR) | payer MEDICARE, SELFPAY ==
[2020-06-06 08:05] LABS: MANUAL DIFF FLAG NO
--- NOTE | 2020-06-06 08:06 | PM.HEMONCPN ---
Medical Summary - Medical Summary Date of Service: 06/06/20 Chief complaint: F/U for: 1. P.Vera. 2. Bladder Tumor. Medical Summary: DIAGNOSIS: 1. P VERA. 2. BLADDER TUMOR. CURRENT THERAPY: 1. Intermittent phlebotomy on a monthly basis. Last phlebotomy was April 30. 2. Status post TURBT on April 06. S/P intra vesical cycle Gemcitabine, Sixth and final dose on June 08 2019. Interval History Interval history: This is a pleasant 80 year-old gentleman, here for a follow-up visit. He is accompanied by his son. He denies any complaints today. He denies any headache along with it. He denies chest pain or trouble breathing. No abdominal pain nausea vomiting heartburn indigestion. Bowels are working without any gross blood in it. He enjoys a good appetite. He has lost some weight. He is in good spirits. Rest of the review of systems is unremarkable. He has been going to the blood bank on a monthly basis. Serial phlebotomies were done on: 02/09, 02/16, 03/16, and 05/11. His next appointment is SaturdayJune 08. He has seen Dr. Alaniz. He had a cystoscopy on 12/17 which was negative. Subsequently, he had 3 more intra was cycle gemcitabine treatments on 12/29, 01/05 and 01/13. He had repeat cystoscopy 03/29 which was again negative. He has a follow-up coming up with him on 06/28. He has had eye surgery by Dr. Oliveros. January 10, he had stent placed in the left eye. 05/04 in the right eye. He had XEV Gel stents. 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 Previous history: He had a screening colonoscopy, on September [address] Morton. It revealed: A. Colon, ascending, polypectomy: Fragments of tubular adenoma; no high grade dysplasia or carcinoma seen. B. Colon, transverse, polypectomy: Fragments of tubular adenoma; no high grade dysplasia or carcinoma seen. C. Colon, descending 60 cm, polypectomy: Fragments of tubular adenoma; no high grade dysplasia or carcinoma seen. D. Colon, sigmoid, polypectomies: Fragments of tubular adenomas; no high grade dysplasia or carcinoma seen. Review of Systems - Constitutional Reports no additional constitutional complaints - Eyes Reports no additional eye complaints - ENT Reports no additional ear, nose, mouth, and throat complaints - Cardiovascular Reports no additional cardiovascular complaints - Respiratory Reports no additional respiratory complaints - Gastrointestinal Reports no additional gastrointestinal complaints - Genitourinary Genitourinary: Reports no additional male genitourinary complaints - Musculoskeletal Reports no additional musculoskeletal complaints - Integumentary/Breasts Skin/Breast: Reports no additional skin complaints - Neurologic Reports no additional neurologic complaints - Psychiatric Reports no additional psychiatric complaints - Endocrine Reports no additional endocrine complaints - Hematologic/Lymphatic Reports no additional hematologic/lymphatic complaints - Allergic/Immunologic Reports no additional allergic/immunologic complaints [facility] Medical History: Medical History (Last Updated 03/30/20 @ 15:06 by Liza Beard MD) Glaucoma Hypertension, essential Obesity Functional capacity: independent ambulation Patient : No Family History: Family History (Last Reviewed 03/30/20 @ 14:46 by Liza Beard MD) Father Cancer Mother CVD (cardiovascular disease) Brother No problems noted. Surgical History: Surgical History (Last Reviewed 03/30/20 @ 14:46 by Liza Beard MD) History of tonsillectomy Hx of cholecystectomy Home Medications and Allergies Home Medications Medication Instructions Recorded Confirmed Type prednisolone acetate 1 % eye 1 drp OPHTHALMIC (EYE) TID 03/29/20 06/06/20 History drops,suspension aspirin 81 mg tablet,delayed 81 mg PO DAILY 03/30/20 06/06/20 History release atenolol 100 mg tablet 100 mg PO DAILY 03/30/20 06/06/20 History PreserVision AREDS-2 1 tab PO BID 06/06/20 06/06/20 History brimonidine [Alphagan P] 1 drp BID 06/06/20 06/06/20 History dorzolamide 1 drp OPHTHALMIC (EYE) TID 06/06/20 06/06/20 History Allergies Allergy/AdvReac Type Severity Reaction Status Date / Time No Known Allergies Allergy Verified 03/30/20 14:34 [No Known Allergies*] Exam - Constitutional Present: no acute distress - Routine HEENT Exam Head: Present: normal inspection Eye: Present: normal appearance ENT: Present: mucous membranes moist - Routine Neck Exam Present: full ROM - Routine Respiratory Exam Present: CTAB - Routine Cardiovascular Exam Cardiovascular: Present: RRR, S1, S2 - Routine Abdominal Exam Present: soft, nontender - Routine Extremities Exam Present: nontender - Routine Back/Spine/Pelvis Exam Back/Spine: Present: full ROM - Routine Skin Exam Present: intact - Routine Neurological Exam Present: alert, oriented X3 - Routine Psychiatric Exam Present: normal affect Data - Labs CBC & Chem 7: 06/06/20 08:04 06/06/20 08:04 Progress Note: A/P (1) Bladder cancer Status: Acute Assessment and plan: This is a pleasant 80-year-old gentleman with a history of bladder cancer. He was initially noted to have a Bladder Mass. Pathology revealed: - High grade papillary urothelial carcinoma, invasive. - Tumor focally invades lamina propria (subepithelial connective tissue). - Lymphovascular invasion is not identified. - Muscularis propria present. He initially had a TURBT, with Gemcitabine installation, on March 09, 2019. On April 06, he had repeat cystoscopy, with gemcitabine installation. Pathology revealed: Bladder tumor, TURBT: Fragments of predominantly necrotic and inflamed urothelial mucosa and wall with granulomatous inflammation, changes consistent with BCG therapy effect; negative for malignancy. He completed weekly Gemcitabine bladder instillation. He had his 6th and final installation June 08, 2019. He tolerated it well. PLAN: Subsequently he received gemcitabine intra visit cycle treatments. Repeat cystoscopy from 12/17 was negative. He had 3 more gemcitabine treatments on 12/29, , and 01/13. Subsequent cystoscopy from 03/29 was negative. He has another surveillance cystoscopy scheduled for 06/[address] Alaniz. (2) P. vera Status: Acute Assessment and plan: This is a pleasant 80 year-old gentleman, with history of elevated Hemoglobin and Hematocrit. 1. P Vera. He has Leukocytosis and Thrombocytosis as well. JAK2 mutation was sent and is positive, confirming the diagnosis. I addressed the course and prognosis of P vera with him and his family. Discussed the complications including, the risks of thromboembolism. He has been started on a regimen of therapeutic phlebotomies. He Had one on 02/09, 02/16, 03/16, and 05/11. PLAN: He will be going to the blood bank monthly, to assess the need for further phlebotomies. He has an appointment June 08. Will try to keep the hemoglobin at the normal range, around 14 or below. He will return in about 6 months for a follow-up. Will coordinate the appointment with the blood bank, to make it convenient for him. Thank you, CC: Dr. Liza Beard. Dr. Vish Alaniz. - Time Spent With Patient Total time spent is greater than 50% in coordination of care (as documented) at patient's floor/unit and/or counseling patient: 25 - 35 minutes
[2020-06-06 08:11] VITALS: BP 175/74; PULSE 54; RESP 18; TEMP 36.4; O2SAT 97; BMI 37.1
[2020-06-06 08:15] LABS: Basophils Absolute Auto 0.2 X10*3/uL (0.0-0.2); Basophils Percent Auto 1.2 % (0-2); Eosinophils Absolute Auto 0.5 X10*3/uL (0.0-0.4); Hematocrit 43.4 % (42-52); Hemoglobin 12.6 g/dl (14.0-18.0); Imm Gran Abs Auto 0.08 X10*3/uL (0.00-0.03); Imm Gran Pct Auto 0.6 % (0.0-0.4); Lymphocytes Absolute Auto 1.8 X10*3/uL (1.2-4.9); Lymphocytes Percent Auto 13.6 % (20-40); Mean Corpuscular Volume 75.7 fL (80-98); Mean Platelet Volume 9.9 fL (9.4-12.4); Neutrophils Absolute Auto 9.9 X10*3/uL (2.0-8.3); Neutrophils Percent Auto 73.6 % (45-73); Platelet Count 622 X10*3/uL (160-400); Red Blood Count 5.73 X10*6/uL (4.60-5.80); Red Cell Distribution Width 19.5 % (11.0-16.0); White Blood Count 13.5 X10*3/uL (4.8-10.8)
--- NOTE | 2020-06-06 08:44 | MHC.HEMONC ---
Follow up with Dr Paul. Labs drawn and reviewed by . States feeling well with no c/o discomfort. Scheduled for next follow up in 6 months.
[2020-06-06 08:49] LABS: Alanine Aminotransferase 28 U/L (0-40); Albumin Level 3.9 g/dL (3.5-5.0); Alkaline Phosphatase 94 U/L (39-117); Anion Gap 13 (12-20); Aspartate Amino Transferase 22 U/L (5-37); Bilirubin Total 0.8 mg/dL (0.0-1.0); Blood Urea Nitrogen 16 mg/dL (9-16); Carbon Dioxide 27 mmol/L (22-29); Chloride 107 mmol/L (96-108); Creatinine Clr Calc Pharmacy 68.5; Estimated Glomerular Filt Rate > 60; Glucose Random 105 mg/dL (60-115); Potassium 5.5 mmol/l (3.3-5.1); Sodium 141 mmol/L (135-145); Total Protein 6.3 g/dL (6.5-8.0)
[2020-11-28 10:44] LABS: Basophils Percent Auto 1.2 % (0-2); Imm Gran Pct Auto 0.7 % (0.0-0.4); MANUAL DIFF FLAG SCAN; PLT CLUMP 1; SCAN SMEAR FLAG 1
[2020-11-28 10:46] LABS: Basophils Absolute Auto 0.2 X10*3/uL (0.0-0.2); Eosinophils Absolute Auto 0.3 X10*3/uL (0.0-0.4); Eosinophils Percent Auto 2.3 % (0-4); Hematocrit 43.9 % (42-52); Hemoglobin 13.4 g/dl (14.0-18.0); Imm Gran Abs Auto 0.09 X10*3/uL (0.00-0.03); Lymphocytes Absolute Auto 1.9 X10*3/uL (1.2-4.9); Lymphocytes Percent Auto 14.1 % (20-40); Mean Corpuscular HGB Conc 30.5 g/dl (31.0-36.0); Mean Corpuscular Volume 75.3 fL (80-98); Mean Platelet Volume 9.8 fL (9.4-12.4); Monocytes Absolute Auto 0.9 X10*3/uL (0.1-1.2); Monocytes Percent Auto 6.7 % (2-11); Neutrophils Absolute Auto 10.4 X10*3/uL (2.0-8.3); Red Blood Count 5.83 X10*6/uL (4.60-5.80); Red Cell Distribution Width 18.8 % (11.0-16.0); White Blood Count 13.8 X10*3/uL (4.8-10.8)
[2020-11-28 10:55] VITALS: BMI 32.8
[2020-11-28 10:56] VITALS: BP 134/62; PULSE 47; RESP 18; TEMP 35.7; O2SAT 96
[2020-11-28 11:13] LABS: Alanine Aminotransferase 12 U/L (0-40); Alkaline Phosphatase 86 U/L (39-117); Anion Gap 14 (12-20); Aspartate Amino Transferase 18 U/L (5-37); Bilirubin Total 0.8 mg/dL (0.0-1.0); Blood Urea Nitrogen 18 mg/dL (9-16); Calcium 9.6 mg/dL (8.4-10.2); Carbon Dioxide 27 mmol/L (22-29); Chloride 104 mmol/L (96-108); Creatinine Clr Calc Pharmacy 56.3; Estimated Glomerular Filt Rate > 60; Glucose Random 94 mg/dL (60-115); Potassium 4.7 mmol/L (3.3-5.1); Sodium 140 mmol/L (135-145); Total Protein 6.7 g/dL (6.5-8.0)
--- NOTE | 2020-11-28 11:13 | P.PNHO_ITS ---
Medical Summary - Medical Summary Date of Service: 11/28/20 Chief complaint: Follow-up for:1. P vera. 2. Bladder cancer. Medical Summary: DIAGNOSIS: 1. P VERA. 2. BLADDER TUMOR. CURRENT THERAPY: 1. Intermittent phlebotomy on a monthly basis. Last phlebotomy was April 30. 2. Status post TURBT on April 06. S/P intra vesical cycle Gemcitabine, Sixth and final dose on June 08 2019. Interval History Interval history: This is a pleasant 80 year-old gentleman, here for a follow-up visit. He is accompanied by his son. He denies any complaints today. He says he is quite active. He walks around the block daily. He denies any headache along with it. He denies chest pain or trouble breathing. No abdominal pain nausea vomiting heartburn indigestion. Bowels are working without any gross blood in it. He enjoys a good appetite. He has lost some weight. He is in good spirits. Rest of the review of systems is unremarkable. He has been going to the blood bank on a monthly basis. Serial phlebotomies were done on: 09/27 for a hemoglobin of 14.8. 11/03 for hemoglobin 13.2. His next appointment is December 06. After that is January 07. He has been following with Dr. Alaniz. He had 3 doses of intravesical Gemzar, during the summer. Subsequently, he had 3 more intra vesical Gemcitabine treatments on 12/29, 01/05 and 01/13. He had repeat cystoscopy on 06/28 which was negative. Previously it was on 03/29 which was again negative. He has had eye surgery by Dr. Oliveros. January 10, he had stent placed in the left eye. 05/04 in the right eye. He had XEV Gel stents. 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 Previous history: He had a screening colonoscopy, on September [address] Morton. It revealed: A. Colon, ascending, polypectomy: Fragments of tubular adenoma; no high grade dysplasia or carcinoma seen. B. Colon, transverse, polypectomy: Fragments of tubular adenoma; no high grade dysplasia or carcinoma seen. C. Colon, descending 60 cm, polypectomy: Fragments of tubular adenoma; no high grade dysplasia or carcinoma seen. D. Colon, sigmoid, polypectomies: Fragments of tubular adenomas; no high grade dysplasia or carcinoma seen. Review of Systems - Constitutional Reports no additional constitutional complaints - Eyes Reports no additional eye complaints - ENT Reports no additional ear, nose, mouth, and throat complaints - Cardiovascular Reports no additional cardiovascular complaints - Respiratory Reports no additional respiratory complaints - Gastrointestinal Reports no additional gastrointestinal complaints - Genitourinary Genitourinary: Reports no additional male genitourinary complaints - Musculoskeletal Reports no additional musculoskeletal complaints - Integumentary/Breasts Skin/Breast: Reports no additional skin complaints - Neurologic Reports no additional neurologic complaints - Psychiatric Reports no additional psychiatric complaints - Endocrine Reports no additional endocrine complaints - Hematologic/Lymphatic Reports no additional hematologic/lymphatic complaints - Allergic/Immunologic Reports no additional allergic/immunologic complaints PMFSH Medical History: Medical History (Last Reviewed 11/28/20 @ 11:15 by Heidi Pacheco RN) (HFpEF) heart failure with preserved ejection fraction Anemia Bladder cancer Glaucoma Hypertension, essential JAK2 gene mutation Obesity P. vera Urothelial cancer Functional capacity: independent ambulation Patient : No Family History: Family History (Last Updated 11/28/20 @ 11:16 by Heidi Pacheco RN) Father Cancer Liver cancer Mother CVD (cardiovascular disease) Breast cancer Brother No problems noted. Surgical History: Surgical History (Last Reviewed 11/28/20 @ 11:15 by Heidi Pacheco RN) H/O cystoscopy History of tonsillectomy Hx of cholecystectomy Social History: Social History (Last Updated 11/28/20 @ 11:17 by Heidi Pacheco, RN) Living Situation History: Household Members: None Housing: House Do you presently have visiting nurse or other home services: No Alcohol History: Alcohol intake: current Alcohol History Details: Alcohol intake frequency: holiday/special occasion Tobacco History: Patient Tobacco Use Status: Former Tobacco user Smoke Quit Date: quit 50 years Advance Directives: Advance Directives Date on File: 07/27/20 Nutrition Assessment: Patient : No Occupation Assessmet: service: No Current occupational status: retired Oncology Screenings - ECOG Performance Status ECOG Performance Status: 1 Home Medications and Allergies Home Medications Medication Instructions Recorded Confirmed Type aspirin 81 mg tablet,delayed 81 mg PO DAILY 03/30/20 11/28/20 History release Alphagan P 1 drp OPHTHALMIC-RIGHT TID 06/06/20 11/28/20 History PreserVision AREDS-2 1 tab PO BID 06/06/20 11/28/20 History bumetanide 2 mg tablet 2 mg PO DAILY 09/07/20 11/28/20 History spironolactone 12.5 mg PO DAILY 11/28/20 11/28/20 History Allergies Allergy/AdvReac Type Severity Reaction Status Date / Time No Known Allergies Allergy Verified 11/04/20 14:27 [No Known Allergies*] Exam Vital signs: Vital Signs Temp 96.2 F L 11/28/20 10:56 Pulse 47 L 11/28/20 10:56 Resp 18 11/28/20 10:56 BP 134/62 11/28/20 10:56 Pulse Ox 96 11/28/20 10:56 Intake & Output 11/27/20 11/28/20 11/28/20 18:59 06:59 18:59 Other: Weight 92.2 kg [place] Weight in Grams [id number] Weight 92.2 kg Body Mass Index 32.8 - Constitutional Present: no acute distress - Routine HEENT Exam Head: Present: normal inspection Eye: Present: normal appearance ENT: Present: mucous membranes moist - Routine Neck Exam Present: full ROM - Routine Respiratory Exam Present: CTAB - Routine Cardiovascular Exam Cardiovascular: Present: RRR, S1, S2 - Routine Abdominal Exam Present: soft, nontender - Routine Extremities Exam Present: nontender - Routine Back/Spine/Pelvis Exam Back/Spine: Present: full ROM - Routine Skin Exam Present: intact - Routine Neurological Exam Present: alert, oriented X3 - Routine Psychiatric Exam Present: normal affect Data - Labs CBC & Chem 7: 11/28/20 10:32 11/28/20 10:23 Labs: 06/06/20 08:04 CMP [Comprehensive Met. Panel] Routine Complete Blood Count Auto Diff Routine Laboratory Last Values WBC 13.8 X10*3/uL (4.8-10.8) H 11/28/20 10:32 RBC 5.83 X10*6/uL (4.60-5.80) H 11/28/20 10:32 Hgb 13.4 g/dl (14.0-18.0) L 11/28/20 10:32 Hct 43.9 % (42-52) 11/28/20 10:32 MCV 75.3 fL (80-98) L 11/28/20 10:32 MCH 23.0 pg (27.0-33.0) L 11/28/20 10:32 MCHC 30.5 g/dl (31.0-36.0) L 11/28/20 10:32 RDW 18.8 % (11.0-16.0) H 11/28/20 10:32 Plt Count Not Reportable 11/28/20 10:32 MPV 9.8 fL (9.4-12.4) 11/28/20 10:32 Immature Gran % (Auto) 0.7 % (0.0-0.4) H 11/28/20 10:32 Neut % (Auto) 75.0 % (45-73) H 11/28/20 10:32 Lymph % (Auto) 14.1 % (20-40) L 11/28/20 10:32 Kimble % (Auto) 6.7 % (2-11) 11/28/20 10:32 Eos % (Auto) 2.3 % (0-4) 11/28/20 10:32 Baso % (Auto) 1.2 % (0-2) 11/28/20 10:32 Lymph # (Auto) 1.9 X10*3/uL (1.2-4.9) 11/28/20 10:32 Kimble # (Auto) 0.9 X10*3/uL (0.1-1.2) 11/28/20 10:32 Eos # (Auto) 0.3 X10*3/uL (0.0-0.4) 11/28/20 10:32 Baso # (Auto) 0.2 X10*3/uL (0.0-0.2) 11/28/20 10:32 Abs Immat Gran (auto) 0.09 X10*3/uL (0.00-0.03) H 11/28/20 10:32 Absolute Neuts (auto) 10.4 X10*3/uL (2.0-8.3) H 11/28/20 10:32 Absolute Nucleated RBC 0.000 X10*3/uL (0.0-0.012) 11/28/20 10:32 Nucleated RBC % (auto) 0.0 /100WBC (0.0-0.2) 11/28/20 10:32 Sodium 141 mmol/L (135-145) 06/06/20 08:04 Potassium 5.5 mmol/l (3.3-5.1) H 06/06/20 08:04 Chloride 107 mmol/L (96-108) 06/06/20 08:04 Carbon Dioxide 27 mmol/L (22-29) 06/06/20 08:04 Anion Gap 13 (12-20) 06/06/20 08:04 BUN 16 mg/dL (9-16) 06/06/20 08:04 Creatinine 0.99 mg/dL (0.5-1.4) 06/06/20 08:04 Estim Creat Clear Calc 68.5 06/06/20 08:04 Estimated GFR > 60 06/06/20 08:04 Random Glucose 105 mg/dL (60-115) 06/06/20 08:04 Calcium 9.0 mg/dL (8.4-10.2) 06/06/20 08:04 Total Bilirubin 0.8 mg/dL (0.0-1.0) 06/06/20 08:04 AST 22 U/L (5-37) 06/06/20 08:04 ALT 28 U/L (0-40) 06/06/20 08:04 Alkaline Phosphatase 94 U/L (39-117) 06/06/20 08:04 Total Protein 6.3 g/dL (6.5-8.0) L 06/06/20 08:04 Albumin 3.9 g/dL (3.5-5.0) 06/06/20 08:04 Progress Note: A/P (1) Bladder cancer Status: Acute Assessment and plan: This is a pleasant 80-year-old gentleman with a history of bladder cancer. He was initially noted to have a Bladder Mass. Pathology revealed: - High grade papillary urothelial carcinoma, invasive. - Tumor focally invades lamina propria (subepithelial connective tissue). - Lymphovascular invasion is not identified. - Muscularis propria present. He initially had a TURBT, with Gemcitabine installation, on March 09, 2019. On April 06, he had repeat cystoscopy, with Gemcitabine installation. Pathology revealed: Bladder tumor, TURBT: Fragments of predominantly necrotic and inflamed urothelial mucosa and wall with granulomatous inflammation, changes consistent with BCG therapy effect; negative for malignancy. He completed weekly Gemcitabine bladder instillation. He had his 6th and final installation June 08, 2019. He tolerated it well. PLAN: Subsequently he received Gemcitabine intra visit cycle treatments. Repeat cystoscopy from 12/18/19 was negative. He had 3 more Gemcitabine treatments on 12/29, 01/05, and 01/13. Subsequent cystoscopy from 03/29/20 was negative. He had repeat surveillance cystoscopy on 06/[address] Alaniz. He has an upcoming appointment with him on December 27. It is reassuring that there has been no evidence of disease recurrence. He will continue to be monitored. (2) P. vera Status: Inactive Assessment and plan: This is a pleasant 80 year-old gentleman, with history of elevated Hemoglobin and Hematocrit. 1. P Vera. He has Leukocytosis and Thrombocytosis as well. JAK2 mutation was sent and was positive, confirming the diagnosis. I addressed the course and prognosis of P vera with him and his family. Discussed the complications including, the risks of thromboembolism. He has been started on a regimen of therapeutic phlebotomies. He had one on 02/09, 02/16, 03/16, and 05/11. He has been going for monthly phlebotomy. November 03 his hemoglobin is 13.2. Today his hemoglobin is 13.4. Now that his hemoglobin has dropped I will switch his phlebotomy schedule so he has to go less frequently. PLAN: He will go on January 07. Subsequently, he will be going to the blood bank q 3 monthly, to assess the need for further phlebotomies. Will try to keep the hemoglobin at the normal range, around 14 or below. He will return in about 6 months for a follow-up. Will coordinate his appointments with the blood bank, to make it convenient for him. Thank you, CC: Dr. Liza Beard. Dr. Vish Alaniz. - Time Spent With Patient Time Spent with Patient (in minutes): 35
[2020-11-28 11:32] LABS: Platelet Count 371 X10*3/uL (160-400)
[2020-11-28 11:33] LABS: SLIDE REVIEW VERIFIED
--- NOTE | 2020-11-28 13:39 | MHC.HEMONC ---
Exam with Dr Paul. Vaibhav's brother Delvis was present. Labs obtained and reviewed with patient. Medications/Clinical Summary updated by this RN. Patient denied pain. Request for Therapeutic Phlebotomy every 3 months faxed to Blood Bank.
[2021-06-01 08:10] LABS: MANUAL DIFF FLAG NO
[2021-06-01 08:13] VITALS: BP 136/63; PULSE 50; RESP 18; TEMP 35.8; O2SAT 96; BMI 32.7
[2021-06-01 08:13] LABS: Basophils Absolute Auto 0.2 X10*3/uL (0.0-0.2); Basophils Percent Auto 1.3 % (0-2); Eosinophils Absolute Auto 0.3 X10*3/uL (0.0-0.4); Hematocrit 48.2 % (42.0-52.0); Hemoglobin 14.6 g/dl (14.0-18.0); Imm Gran Abs Auto 0.08 X10*3/uL (0.00-0.03); Imm Gran Pct Auto 0.6 % (0.0-0.4); Lymphocytes Absolute Auto 2.4 X10*3/uL (1.2-4.9); Lymphocytes Percent Auto 16.8 % (20-40); Mean Corpuscular HGB Conc 30.3 g/dl (31.0-36.0); Mean Corpuscular Hemoglobin 23.6 pg (27.0-33.0); Mean Corpuscular Volume 77.9 fL (80.0-98.0); Monocytes Absolute Auto 0.9 X10*3/uL (0.1-1.2); Monocytes Percent Auto 6.1 % (2-11); Neutrophils Absolute Auto 10.3 x10*3/uL (2.0-8.3); Neutrophils Percent Auto 73.2 % (45-73); Platelet Count 473 X10*3/uL (160-400); Red Blood Count 6.19 X10*6/uL (4.60-5.80); Red Cell Distribution Width 19.6 % (11.0-16.0); White Blood Count 14.1 X10*3/uL (4.8-10.8)
--- NOTE | 2021-06-01 08:33 | PM.HEMONCPN ---
Medical Summary - Medical Summary Date of Service: 06/01/21 Chief complaint: F/U For: 1. P.vera. 2. Bladder tumor. Medical Summary: DIAGNOSIS: 1. P VERA. 2. BLADDER TUMOR. CURRENT THERAPY: 1. Intermittent phlebotomy on a monthly basis. Last phlebotomy was April 30. 2. Status post TURBT on April 06. S/P intra vesical cycle Gemcitabine, Sixth and final dose on June 08 2019. Interval History Interval history: This is a pleasant 81 year-old gentleman, here for a follow-up visit. He is accompanied by his son. He says he has to void frequently. Other than that he denies any complaints today. He saw Dr. Alaniz few months ago. He proceeded with cystoscopy. Everything checked out fine. He says he has good energy level. He is active. He walks around the block daily. He cooks his meals and does his laundry. Her son takes him to do grocery shopping. He denies any headache, nor dizziness. He denies chest pain or trouble breathing. No abdominal pain nausea vomiting heartburn indigestion. Bowels are working without any gross blood in it. He enjoys a good appetite. His weight is stable. He is in good spirits. Rest of the review of systems is unremarkable. He has been going to the blood bank on a Q 3 monthly basis. His last phlebotomy was on: 04/10/2021. Next appointment is on 07/05/2021. Serial phlebotomies were done on: 09/27/20 for a hemoglobin of 14.8. 11/03 for hemoglobin 13.2. December 06. After that: January 07. Since then he has been going Q 3 monthly. Previous history: He has been following with Dr. Alaniz. He had 3 doses of intravesical Gemzar, during the summer. Subsequently, he had 3 more intra vesical Gemcitabine treatments on 12/29, 01/05 and 01/13. He had repeat cystoscopy on 06/28 which was negative. Previously it was on 03/29 which was again negative. He has had eye surgery by Dr. Oliveros. January 10, he had stent placed in the left eye. 05/04 in the right eye. He had XEV Gel stents. 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 He had a screening colonoscopy, on September [address] Morton. It revealed: A. Colon, ascending, polypectomy: Fragments of tubular adenoma; no high grade dysplasia or carcinoma seen. B. Colon, transverse, polypectomy: Fragments of tubular adenoma; no high grade dysplasia or carcinoma seen. C. Colon, descending 60 cm, polypectomy: Fragments of tubular adenoma; no high grade dysplasia or carcinoma seen. D. Colon, sigmoid, polypectomies: Fragments of tubular adenomas; no high grade dysplasia or carcinoma seen. Review of Systems - Constitutional Reports no additional constitutional complaints, Reports lack of energy, Denies poor appetite - Eyes Reports no additional eye complaints - ENT Reports no additional ear, nose, mouth, and throat complaints - Cardiovascular Reports no additional cardiovascular complaints - Respiratory Reports no additional respiratory complaints - Gastrointestinal Reports no additional gastrointestinal complaints - Genitourinary Genitourinary: Reports no additional male genitourinary complaints - Musculoskeletal Reports no additional musculoskeletal complaints - Integumentary/Breasts Skin/Breast: Reports no additional skin complaints - Neurologic Reports no additional neurologic complaints - Psychiatric Reports no additional psychiatric complaints - Endocrine Reports no additional endocrine complaints - Hematologic/Lymphatic Reports no additional hematologic/lymphatic complaints - Allergic/Immunologic Reports no additional allergic/immunologic complaints PMFSH Medical History: Medical History (Last Reviewed 05/30/21 @ 09:04 by Enoc Blanca MD) (HFpEF) heart failure with preserved ejection fraction Anemia Bladder cancer Glaucoma Hyperkalemia Hypertension, essential JAK2 gene mutation Obesity P. vera Urothelial cancer Functional capacity: independent ambulation Patient : No Family History: Family History (Last Reviewed 05/30/21 @ 09:04 by Enoc Blanca MD) Father Cancer Liver cancer Mother CVD (cardiovascular disease) Breast cancer Brother No problems noted. Surgical History: Surgical History (Last Reviewed 05/30/21 @ 09:04 by Enoc Blanca MD) H/O cystoscopy History of tonsillectomy Hx of cholecystectomy Social History: Social History (Last Reviewed 05/30/21 @ 09:04 by Enoc Blanca MD) Living Situation History: Household Members: None Housing: House Do you presently have visiting nurse or other home services: No Tobacco History: Patient Tobacco Use Status: Former Tobacco user Smoke Quit Date: quit 50 years Advance Directives: Advance Directives Date on File: 07/27/20 Nutrition Assessment: Patient : No Occupation Assessmet: service: No Current occupational status: retired Home Medications and Allergies Home Medications Medication Instructions Recorded Confirmed Type aspirin 81 mg tablet,delayed 81 mg PO DAILY 03/30/20 06/01/21 History release (Adult Low Dose Aspirin) brimonidine 0.1 % eye drops 1 drp OPHTHALMIC-RIGHT TID 06/06/20 06/01/21 History (Alphagan P) vit C 250 mg-vit E 90 mg-zinc 40 1 tab PO BID 06/06/20 06/01/21 History mg-copper 1 [id number] capsule (PreserVision AREDS-2) bumetanide 2 mg tablet 2 mg PO DAILY 09/07/20 06/01/21 History dorzolamide 22.3 mg-timolol 6.8 22.3 ml OPHTHALMIC (EYE) BEDTIME 01/17/21 06/01/21 History mg/mL eye drops latanoprost 0.005 % eye drops 1 drp OPHTHALMIC-RIGHT BEDTIME 01/17/21 06/01/21 History Allergies Allergy/AdvReac Type Severity Reaction Status Date / Time No Known Allergies Allergy Verified 06/01/21 08:16 [No Known Allergies*] Exam Vital signs: Vital Signs Temp 96.4 F L 06/01/21 08:13 Pulse 50 06/01/21 08:13 Resp 18 06/01/21 08:13 BP 136/63 06/01/21 08:13 Pulse Ox 96 06/01/21 08:13 Intake & Output 05/31/21 06/01/21 06/01/21 18:59 06:59 18:59 Other: Weight 91.9 kg Weight in Grams [id number] Weight 91.9 kg BMI result Body Mass Index 32.7 - Constitutional Present: no acute distress - Routine HEENT Exam Head: Present: normal inspection Eye: Present: normal appearance ENT: Present: mucous membranes moist - Routine Neck Exam Present: full ROM - Routine Respiratory Exam Present: CTAB - Routine Cardiovascular Exam Cardiovascular: Present: RRR, S1, S2 - Routine Abdominal Exam Present: soft, nontender - Routine Extremities Exam Present: nontender - Routine Back/Spine/Pelvis Exam Back/Spine: Present: full ROM - Routine Skin Exam Present: intact - Routine Neurological Exam Present: alert, oriented X3 - Routine Psychiatric Exam Present: normal affect Data - Labs CBC & Chem 7: 06/01/21 08:08 06/01/21 08:08 Assessment and Plan Patient Active problem list reviewed?: Yes (1) Bladder cancer Status: Acute Assessment and plan: This is a pleasant 82 year-old gentleman with a history of bladder cancer. He was initially noted to have a Bladder Mass. Pathology revealed: - High grade papillary urothelial carcinoma, invasive. - Tumor focally invades lamina propria (subepithelial connective tissue). - Lymphovascular invasion is not identified. - Muscularis propria present. He initially had a TURBT, with Gemcitabine installation, on March 09, 2019. On April 06, he had repeat cystoscopy, with Gemcitabine installation. Pathology revealed: Bladder tumor, TURBT: Fragments of predominantly necrotic and inflamed urothelial mucosa and wall with granulomatous inflammation, changes consistent with BCG therapy effect; negative for malignancy. He completed weekly Gemcitabine bladder instillation. He had his 6th and final installation June 08, 2019. He tolerated it well. Subsequently he received Gemcitabine intra-vesical treatments. Repeat cystoscopy from 12/18/19 was negative. He had 3 more Gemcitabine treatments on 12/29, 01/05, and 01/14/20. Subsequent cystoscopy from 03/29/20 was negative. He had repeat surveillance cystoscopy on 06/28/20 and one just recently, by Dr. Alaniz. PLAN: He has an upcoming appointment with him on july 18. It is reassuring that there has been no evidence of disease recurrence. He will continue to be monitored. Thank you, CC: Dr. Alaniz. Dr. Beard. (2) P. vera Status: Inactive Assessment and plan: This is a pleasant 81 year-old gentleman, with history of elevated Hemoglobin and Hematocrit. 1. P Vera. He has Leukocytosis and Thrombocytosis as well. JAK2 mutation was sent and was positive, confirming the diagnosis. I addressed the course and prognosis of P vera with him and his family. Discussed the complications including, the risks of thromboembolism. He has been started on a regimen of therapeutic phlebotomies. He had one on 04/10/21. Prior to that was January 07. PLAN: He has been going to the blood bank q 3 monthly, to assess the need for further phlebotomies. Will try to keep the hemoglobin at the normal range, around 14 or below. He will return in about 6 months for a follow-up. Will coordinate his appointments with the blood bank, to make it convenient for him. Thank you, CC: Dr. Liza Beard. Dr. Vish Alaniz. - Time Spent With Patient Time Spent with Patient (in minutes): 30
[2021-06-01 08:35] LABS: Alanine Aminotransferase 15 U/L (0-40); Albumin Level 3.8 g/dL (3.5-5.0); Alkaline Phosphatase 83 U/L (39-117); Anion Gap 12 (12-20); Aspartate Amino Transferase 15 U/L (5-37); Bilirubin Total 0.9 mg/dL (0.0-1.0); Blood Urea Nitrogen 16 mg/dL (9-16); Calcium 9.6 mg/dL (8.4-10.2); Carbon Dioxide 31 mmol/L (22-29); Chloride 102 mmol/L (96-108); Creatinine Clr Calc Pharmacy 56.3; Estimated Glomerular Filt Rate > 60; Glucose Random 107 mg/dL (60-115); Potassium 4.4 mmol/L (3.3-5.1); Sodium 141 mmol/L (135-145); Total Protein 6.3 g/dL (6.5-8.0)
--- NOTE | 2021-06-01 08:49 | MHC.HEMONC ---
Pt here for Hem follow up with Dr Paul. Labs drawn by chip bin operator-specimen to lab. Pt here with his brother-pt is legaly blind. States he urinates frequently secondary to bladder cancer. Pt states he lives alone-his brother helps with shopping. Pt states his next therapeutic phlebotomy is scheduled for 07/05/21. States he feels well . Clinical summary updated by nurse. Dr Paul into see pt. Follow up appointment scheduled. Discharge packet given.
--- NOTE | 2021-11-29 12:57 | HO.HEMONCSCH ---
LM reminding pt of f/u apt for 11/30/21.
[2021-11-30 09:03] VITALS: BP 154/63; PULSE 50; RESP 14; TEMP 36.1; O2SAT 95; BMI 32.6
--- NOTE | 2021-11-30 09:23 | PM.HEMONCPN ---
Medical Summary - Medical Summary Date of Service: 11/30/21 Chief complaint: Follow-up for: 1. P sukumar. 2. Bladder cancer. Medical Summary: DIAGNOSIS: 1. P YASMANYA. 2. BLADDER TUMOR. CURRENT THERAPY: 1. Intermittent phlebotomy on a monthly basis. Last phlebotomy was April 30. 2. Status post TURBT on April 06. S/P intra vesical cycle Gemcitabine, Sixth and final dose on June 08 2019. Interval History Interval history: This is a pleasant 81 year-old gentleman, here for a follow-up visit. He is accompanied by his baby brother. He is holding his own. He says he has good energy level. He is active. He has been able to lose weight down to 200 lb from 230. Back in July he developed CHF. Since then he has been on a low salt diet. He has been cooking. He goes grocery shopping. Brother takes him out to restaurants to eat. He enjoys a good appetite. He has been declared legally blind. He has an eye appointment end of November with Dr. Styles. He says he has to void frequently. He saw Dr. Alaniz 07/18. He proceeded with cystoscopy. Everything checked out fine. He denies any headache, nor dizziness. He denies chest pain or trouble breathing. No abdominal pain nausea vomiting heartburn indigestion. Bowels are working without any gross blood in it. He enjoys a good appetite. His weight is stable. He is in good spirits. Rest of the review of systems is unremarkable. He has been going to the blood bank on a Q 3 monthly basis. His last phlebotomy was on: 04/10/2021. Next appointment is on 07/05/2021. Serial phlebotomies were done on: 09/27/20 for a hemoglobin of 14.8. 11/03 for hemoglobin 13.2. December 06. After that: January 07. Since then he has been going Q 3 monthly. Previous history: He has been following with Dr. Alaniz. He had 3 doses of intravesical Gemzar, during the summer. Subsequently, he had 3 more intra vesical Gemcitabine treatments on 12/29, 01/05 and 01/13. He had repeat cystoscopy on 06/28 which was negative. Previously it was on 03/29 which was again negative. He has had eye surgery by Dr. Oliveros. January 10, he had stent placed in the left eye. 05/04 in the right eye. He had XEV Gel stents. 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 He had a screening colonoscopy, on September [address] Morton. It revealed: A. Colon, ascending, polypectomy: Fragments of tubular adenoma; no high grade dysplasia or carcinoma seen. B. Colon, transverse, polypectomy: Fragments of tubular adenoma; no high grade dysplasia or carcinoma seen. C. Colon, descending 60 cm, polypectomy: Fragments of tubular adenoma; no high grade dysplasia or carcinoma seen. D. Colon, sigmoid, polypectomies: Fragments of tubular adenomas; no high grade dysplasia or carcinoma seen. Review of Systems - Constitutional Reports system reviewed and no additional complaints, except as documented, Reports weight loss, Denies weakness - Eyes Reports system reviewed and no additional complaints, except as documented, Reports loss of vision, Denies blurry vision - ENT Reports system reviewed and no additional complaints, except as documented - Cardiovascular Reports system reviewed and no additional complaints, except as documented, Denies chest pain at rest - Respiratory Reports no additional respiratory complaints, Denies chest congestion - Gastrointestinal Reports system reviewed and no additional complaints, except as documented, Denies abdominal pain - Genitourinary Genitourinary: Reports no additional male genitourinary complaints, Denies blood in urine, Denies difficulty urinating - Musculoskeletal Reports system reviewed and no additional complaints, except as documented, Denies back pain - Integumentary/Breasts Skin/Breast: Reports no additional skin complaints, Denies bleeding lesions - Neurologic Reports system reviewed and no additional complaints, except as documented - Psychiatric Reports system reviewed and no additional complaints, except as documented, Denies anxiety - Endocrine Reports no additional endocrine complaints, Denies excessive sweating - Hematologic/Lymphatic Reports system reviewed and no additional complaints, except as documented, Denies easy bleeding - Allergic/Immunologic Reports system reviewed and no additional complaints, except as documented, Denies GI upset with certain foods PMFSH Medical History: Medical History (Last Reviewed 11/30/21 @ 10:56 by Enoc Blanca MD) (HFpEF) heart failure with preserved ejection fraction Anemia Bladder cancer Glaucoma Hyperkalemia Hypertension, essential JAK2 gene mutation Obesity P. vera Urothelial cancer Functional capacity: independent ambulation Patient : No Family History: Family History (Last Reviewed 11/30/21 @ 10:56 by Enoc Blanca MD) Father Liver cancer Cancer Mother CVD (cardiovascular disease) Breast cancer Brother No problems noted. Maternal Grandmother Cancer Maternal Grandfather Cancer Maternal Uncle Cancer Surgical History: Surgical History (Last Reviewed 11/30/21 @ 10:56 by Enoc Blanca MD) H/O cystoscopy History of tonsillectomy Hx of cholecystectomy Social History: Social History (Last Reviewed 11/30/21 @ 10:56 by Enoc Blanca MD) Living Situation History: Household Members: None Housing: House Are you a primary doggy daycare activities director to a significant other at home: No Do you presently have visiting nurse or other home services: No Tobacco History: Patient Tobacco Use Status: Former Tobacco user Smoke Quit Date: quit 50 years Advance Directives: Advance Directives Date on File: 07/27/20 Occupation Assessmet: service: No Current occupational status: retired Oncology Screenings - ECOG Performance Status ECOG Performance Status: 1 Home Medications and Allergies Home Medications Medication Instructions Recorded Confirmed Type aspirin 81 mg tablet,delayed 81 mg PO DAILY 03/30/20 11/30/21 History release (Adult Low Dose Aspirin) brimonidine 0.1 % eye drops 1 drp ophthalmic-Right TID 06/06/20 11/30/21 History (Alphagan P) vit C 250 mg-vit E 90 mg-zinc 40 1 tab PO BID 06/06/20 11/30/21 History mg-copper 1 [id number] capsule (PreserVision AREDS-2) dorzolamide 22.3 mg-timolol 6.8 22.3 ml ophthalmic (eye) BEDTIME 01/17/21 11/30/21 History mg/mL eye drops latanoprost 0.005 % eye drops 1 drp ophthalmic-Right BEDTIME 01/17/21 11/30/21 History spironolactone 25 mg tablet 12.5 mg PO DAILY 11/30/21 11/30/21 History Allergies Allergy/AdvReac Type Severity Reaction Status Date / Time No Known Allergies Allergy Verified 11/30/21 09:08 [No Known Allergies*] Exam Vital signs: Vital Signs Temp 96.9 F 11/30/21 09:03 Pulse 50 11/30/21 09:03 Resp 14 11/30/21 09:03 BP 154/63 H 11/30/21 09:03 Pulse Ox 95 11/30/21 09:03 O2 Del Method 11/30/21 09:03 Intake & Output 11/29/21 11/30/21 11/30/21 18:59 06:59 18:59 Other: Weight 91.8 kg Weight in Grams 30557 Weight 91.8 kg BMI result Body Mass Index 32.6 - Constitutional Present: no acute distress - Routine HEENT Exam Head: Present: normal inspection Eye: Present: normal appearance ENT: Present: mucous membranes moist - Routine Neck Exam Present: full ROM - Routine Respiratory Exam Present: CTAB - Routine Cardiovascular Exam Cardiovascular: Present: RRR, S1, S2 - Routine Abdominal Exam Present: soft, nontender - Routine Extremities Exam Present: nontender - Routine Back/Spine/Pelvis Exam Back/Spine: Present: full ROM - Routine Skin Exam Present: intact - Routine Neurological Exam Present: alert, oriented X3 - Routine Psychiatric Exam Present: normal affect Data - Labs CBC & Chem 7: 11/30/21 09:01 11/30/21 09:01 Assessment and Plan Patient Active problem list reviewed?: Yes (1) Bladder cancer Problem details: Superficial high-grade 2019 Status: Acute Assessment and plan: This is a pleasant 82 year-old gentleman with a history of bladder cancer. He was initially noted to have a Bladder Mass. Pathology revealed: - High grade papillary urothelial carcinoma, invasive. - Tumor focally invades lamina propria (subepithelial connective tissue). - Lymphovascular invasion is not identified. - Muscularis propria present. He initially had a TURBT, with Gemcitabine installation, on March 09, 2019. On April 06, he had repeat cystoscopy, with Gemcitabine installation. Pathology revealed: Bladder tumor, TURBT: Fragments of predominantly necrotic and inflamed urothelial mucosa and wall with granulomatous inflammation, changes consistent with BCG therapy effect; negative for malignancy. He completed weekly Gemcitabine bladder instillation. He had his 6th and final installation June 08, 2019. He tolerated it well. Subsequently he received Gemcitabine intra-vesical treatments. Repeat cystoscopy from 12/18/19 was negative. He had 3 more Gemcitabine treatments on 12/29, 01/05, and 01/14/20. Subsequent cystoscopy from 03/29/20 was negative. He had repeat surveillance cystoscopy on 06/28/20 and one just recently, by Dr. Alaniz. He had cystoscopy on july 18. This was negative. It is reassuring that there has been no evidence of disease recurrence. PLAN: He will continue to be monitored by Dr. Alaniz. Thank you, CC: Dr. Alaniz. Dr. Beard. (2) P. vera Status: Inactive Assessment and plan: This is a pleasant 81 year-old gentleman, with history of elevated Hemoglobin and Hematocrit. 1. P Vera. He has Leukocytosis and Thrombocytosis as well. JAK2 mutation was sent and was positive, confirming the diagnosis. I addressed the course and prognosis of P vera with him and his family. Discussed the complications including, the risks of thromboembolism. He has been started on a regimen of therapeutic phlebotomies. He had one on 04/10/21. Prior to that was January 07. He had a phlebotomy on October 11. Prior to that was 07/05. And before that June 01. PLAN: He continue to go to the blood bank q 3 monthly, to assess the need for further phlebotomies. Will try to keep the hemoglobin at the normal range, around 14 or below. He will return in about 6 months for a follow-up. Will coordinate his appointments with the blood bank, to make it convenient for him. Thank you, CC: Dr. Liza Beard. Dr. Vish Alaniz. - Time Spent With Patient Time Spent with Patient (in minutes): 30
[2021-11-30 09:34] LABS: MANUAL DIFF FLAG NO
[2021-11-30 09:38] LABS: Basophils Absolute Auto 0.1 X10*3/uL (0.0-0.2); Eosinophils Absolute Auto 0.4 X10*3/uL (0.0-0.4); Eosinophils Percent Auto 2.5 % (0-4); Hematocrit 47.6 % (42.0-52.0); Hemoglobin 14.2 g/dl (14.0-18.0); Imm Gran Abs Auto 0.11 X10*3/uL (0.00-0.03); Imm Gran Pct Auto 0.8 % (0.0-0.4); Lymphocytes Absolute Auto 1.9 X10*3/uL (1.2-4.9); Lymphocytes Percent Auto 13.5 % (20-40); Mean Corpuscular HGB Conc 29.8 g/dl (31.0-36.0); Mean Corpuscular Hemoglobin 22.9 pg (27.0-33.0); Mean Corpuscular Volume 76.7 fL (80.0-98.0); Mean Platelet Volume 9.7 fL (9.4-12.4); Monocytes Absolute Auto 0.8 X10*3/uL (0.1-1.2); Monocytes Percent Auto 5.5 % (2-11); Neutrophils Absolute Auto 10.9 x10*3/uL (2.0-8.3); Neutrophils Percent Auto 76.7 % (45-73); Platelet Count 667 X10*3/uL (160-400); Red Blood Count 6.21 X10*6/uL (4.60-5.80); Red Cell Distribution Width 19.6 % (11.0-16.0); White Blood Count 14.3 X10*3/uL (4.8-10.8)
[2021-11-30 09:55] LABS: Alanine Aminotransferase 17 U/L (0-40); Albumin Level 3.9 g/dL (3.5-5.0); Alkaline Phosphatase 86 U/L (39-117); Anion Gap 13 (12-20); Aspartate Amino Transferase 17 U/L (5-37); Bilirubin Total 0.6 mg/dL (0.0-1.0); Blood Urea Nitrogen 24 mg/dL (9-16); Calcium 9.1 mg/dL (8.4-10.2); Carbon Dioxide 26 mmol/L (22-29); Chloride 105 mmol/L (96-108); Creatinine Clr Calc Pharmacy 57.8; Estimated Glomerular Filt Rate > 60; Glucose Random 146 mg/dL (60-115); Potassium 4.7 mmol/L (3.3-5.1); Sodium 139 mmol/L (135-145); Total Protein 6.4 g/dL (6.5-8.0)
--- NOTE | 2021-11-30 15:29 | MHC.HEMONCMA ---
Pt was in for follow up. Clinical summary reviewed and updated, VSS. Labs were drawn. Pt to return in 6 months.
--- NOTE | 2022-06-04 10:54 | PM.HEMONCPN ---
Medical Summary - Medical Summary Date of Service: 06/04/22 Chief complaint: Follow-up for: 1. Bladder cancer. 2. P vera. Medical Summary: DIAGNOSIS: 1. P VERA. 2. BLADDER TUMOR. CURRENT THERAPY: 1. Intermittent phlebotomy on a monthly basis. Last phlebotomy was April 30. 2. Status post TURBT on April 06. S/P intra vesical cycle Gemcitabine, Sixth and final dose on June 08 2019. Interval History Interval history: This is a pleasant 82 year-old gentleman, here for a follow-up visit. He is accompanied by his sister in law. Recently, he had UTI. Was seen in the ED. was treated with antibiotics. It has since cleared. He is holding stable. He says he has good energy level. He is quite active. He tries to walk, regularly. He has been able to lose weight down to 200 lb from 230. He enjoys a good appetite. He has been declared legally blind. He has an eye appointment end of November with Dr. Styles. He says he has to void frequently. He saw Dr. Alaniz 07/18. He proceeded with cystoscopy. Everything checked out fine. He denies any headache, nor dizziness. He denies chest pain or trouble breathing. No abdominal pain nausea vomiting heartburn indigestion. Bowels are working without any gross blood in it. He enjoys a good appetite. His weight is stable. He is in good spirits. Rest of the review of systems is unremarkable. He has been going to the blood bank on a Q 3 monthly basis. His last phlebotomy was on: 04/25/22 He has been going Q 3 monthly. Previous history: Back in July he developed CHF. Since then he has been on a low salt diet. He has been cooking. He goes grocery shopping. Brother takes him out to restaurants to eat. He has been following with Dr. Alaniz. He had 3 doses of intravesical Gemzar, during the summer. Subsequently, he had 3 more intra vesical Gemcitabine treatments on 12/29, 01/05 and 01/13. He had repeat cystoscopy on 06/28 which was negative. Previously it was on 03/29 which was again negative. He has had eye surgery by Dr. Oliveros. January 10, he had stent placed in the left eye. 05/04 in the right eye. He had XEV Gel stents. 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 He had a screening colonoscopy, on September [address] Morton. It revealed: A. Colon, ascending, polypectomy: Fragments of tubular adenoma; no high grade dysplasia or carcinoma seen. B. Colon, transverse, polypectomy: Fragments of tubular adenoma; no high grade dysplasia or carcinoma seen. C. Colon, descending 60 cm, polypectomy: Fragments of tubular adenoma; no high grade dysplasia or carcinoma seen. D. Colon, sigmoid, polypectomies: Fragments of tubular adenomas; no high grade dysplasia or carcinoma seen. Review of Systems - Constitutional Reports no additional constitutional complaints, Denies fatigue, Denies fever(s), Denies weakness, Reports weight gain - Eyes Reports no additional eye complaints - ENT Reports no additional ear, nose, mouth, and throat complaints - Cardiovascular Reports no additional cardiovascular complaints - Respiratory Reports no additional respiratory complaints - Gastrointestinal Reports no additional gastrointestinal complaints - Genitourinary Genitourinary: Reports no additional male genitourinary complaints - Musculoskeletal Reports no additional musculoskeletal complaints - Integumentary/Breasts Skin/Breast: Reports no additional skin complaints - Neurologic Reports no additional neurologic complaints, Reports loss of vision, Denies weakness - Psychiatric Reports no additional psychiatric complaints - Endocrine Reports no additional endocrine complaints - Hematologic/Lymphatic Reports no additional hematologic/lymphatic complaints - Allergic/Immunologic Reports no additional allergic/immunologic complaints PMFSH Medical History: Medical History (Last Reviewed 06/04/22 @ 11:04 by Valeria Saini CMA) (HFpEF) heart failure with preserved ejection fraction Anemia Bladder cancer Glaucoma Hyperkalemia Hypertension, essential JAK2 gene mutation Obesity P. vera Urothelial cancer Functional capacity: independent ambulation Patient : No Family History: Family History (Last Reviewed 06/04/22 @ 11:04 by Valeria Saini CMA) Father Liver cancer Cancer Mother CVD (cardiovascular disease) Breast cancer Brother No problems noted. Maternal Grandmother Cancer Maternal Grandfather Cancer Maternal Uncle Cancer Surgical History: Surgical History (Last Reviewed 06/04/22 @ 11:04 by Valeria Saini CMA) H/O cystoscopy History of tonsillectomy Hx of cholecystectomy Social History: Social History (Last Reviewed 06/04/22 @ 11:05 by Valeria Saini CMA) Living Situation History: Household Members: None Housing: House Are you a primary health care facility administrator to a significant other at home: No Do you presently have visiting nurse or other home services: No Alcohol History Details: 1. How often do you have a drink containing alcohol?: d. 2-3 times a week 2. How many drinks containing alcohol do you have on a typical day when you are drinking?: a. 1 or 2 Tobacco History: Patient Tobacco Use Status: Former Tobacco user Smoke Quit Date: quit 50 years Substance Use History: Use of substances other than those prescribed or required for medical reasons: No Domestic Abuse History: Have you been hit, kicked, punched, or otherwise hurt by someone within the past year? If so, by whom?: No Advance Directives: Advance Directives Date on File: 07/27/20 Homicidal Assessment: Do you have thoughts of harming others: None Do you have a plan to hurt others: No Plan Do you have the means to hurt others: No Nutrition Assessment: Recently lost weight without trying: No Eating poorly because of decreased appetite: No Patient : No Occupation Assessmet: service: No Current occupational status: retired Oncology Screenings - ECOG Performance Status ECOG Performance Status: 1 Home Medications and Allergies Home Medications Medication Instructions Recorded Confirmed Type aspirin 81 mg tablet,delayed 81 mg PO DAILY 03/30/20 06/04/22 History release (Adult Low Dose Aspirin) brimonidine 0.1 % eye drops 1 drp ophthalmic-Right TID 06/06/20 06/04/22 History (Alphagan P) vit C 250 mg-vit E 90 mg-zinc 40 1 tab PO BID 06/06/20 06/04/22 History mg-copper 1 [id number] capsule (PreserVision AREDS-2) dorzolamide 22.3 mg-timolol 6.8 22.3 ml ophthalmic (eye) BEDTIME 01/17/21 06/04/22 History mg/mL eye drops latanoprost 0.005 % eye drops 1 drp ophthalmic-Right BEDTIME 01/17/21 06/04/22 History Allergies Allergy/AdvReac Type Severity Reaction Status Date / Time No Known Allergies Allergy Verified 06/04/22 11:05 [No Known Allergies*] Exam Vital signs: Vital Signs Temp 96.9 F 11/30/21 09:03 Pulse 50 11/30/21 09:03 Resp 14 11/30/21 09:03 BP 154/63 H 11/30/21 09:03 Pulse Ox 95 11/30/21 09:03 O2 Del Method 11/30/21 09:03 Weight 91.8 kg BMI result Body Mass Index 32.6 - Constitutional Present: no acute distress - Routine HEENT Exam Head: Present: normal inspection Eye: Present: normal appearance ENT: Present: mucous membranes moist - Routine Neck Exam Present: full ROM - Routine Respiratory Exam Present: CTAB - Routine Cardiovascular Exam Cardiovascular: Present: RRR, S1, S2 - Routine Abdominal Exam Present: soft, nontender - Routine Extremities Exam Present: nontender - Routine Back/Spine/Pelvis Exam Back/Spine: Present: full ROM Comments: He has edema on his feet - Routine Skin Exam Present: intact - Routine Neurological Exam Present: alert, oriented X3 - Routine Psychiatric Exam Present: normal affect Data - Labs CBC & Chem 7: 06/04/22 11:00 06/04/22 11:00 Assessment and Plan Patient Active problem list reviewed?: Yes (1) Bladder cancer Problem details: Superficial high-grade 2019 Status: Acute Assessment and plan: This is a pleasant 82 year-old gentleman with a history of bladder cancer. He was initially noted to have a Bladder Mass. Pathology revealed: - High grade papillary urothelial carcinoma, invasive. - Tumor focally invades lamina propria (subepithelial connective tissue). - Lymphovascular invasion is not identified. - Muscularis propria present. He initially had a TURBT, with Gemcitabine installation, on March 09, 2019. On April 06, he had repeat cystoscopy, with Gemcitabine installation. Pathology revealed: Bladder tumor, TURBT: Fragments of predominantly necrotic and inflamed urothelial mucosa and wall with granulomatous inflammation, changes consistent with BCG therapy effect; negative for malignancy. He completed weekly Gemcitabine bladder instillation. He had his 6th and final installation June 08, 2019. He tolerated it well. Subsequently he received Gemcitabine intra-vesical treatments. Repeat cystoscopy from 12/18/19 was negative. He had 3 more Gemcitabine treatments on 12/29, 01/05, and 01/14/20. Subsequent cystoscopy from 03/29/20 was negative. He had repeat surveillance cystoscopy on 06/28/20, by Dr. Alaniz. He had cystoscopy on july 18. This was negative. He had one on 01/16/2022. This was negative. It is reassuring that there has been no evidence of disease recurrence. PLAN: Next planned cystoscopy is in July. He will continue to be monitored by Dr. Alaniz. Thank you, CC: Dr. Alaniz. Dr. Beard. (2) P. vera Status: Inactive Assessment and plan: This is a pleasant 82 year-old gentleman, with history of elevated Hemoglobin and Hematocrit. 1. P Vera. He has Leukocytosis and Thrombocytosis as well. JAK2 mutation was sent and was positive, confirming the diagnosis. I addressed the course and prognosis of P vera with him and his family. Discussed the complications including, the risks of thromboembolism. He has been on a regimen of therapeutic phlebotomies. He had one on 04/25/22. His blood count is normal, today. PLAN: He has an appointment in July. He continue to go to the blood bank q 3 monthly, to assess the need for further phlebotomies. Will try to keep the hemoglobin at the normal range, around 14 or below. He will return in about 6 months for a follow-up. Will coordinate his appointments with the blood bank, to make it convenient for him. Thank you, CC: Dr. Liza Beard. Dr. Vish Alaniz. - Time Spent With Patient Time Spent with Patient (in minutes): 25
[2022-06-04 11:00] VITALS: BP 152/67; PULSE 56; RESP 12; TEMP 36.1; O2SAT 96; BMI 34.6
[2022-06-04 11:04] LABS: MANUAL DIFF FLAG NO
[2022-06-04 11:07] LABS: Basophils Absolute Auto 0.2 X10*3/uL (0.0-0.2); Basophils Percent Auto 1.2 % (0-2); Eosinophils Absolute Auto 0.3 X10*3/uL (0.0-0.4); Eosinophils Percent Auto 2.5 % (0-4); Hematocrit 45.8 % (42.0-52.0); Hemoglobin 14.2 g/dl (14.0-18.0); Imm Gran Abs Auto 0.08 X10*3/uL (0.00-0.03); Imm Gran Pct Auto 0.6 % (0.0-0.4); Lymphocytes Absolute Auto 2.2 X10*3/uL (1.2-4.9); Lymphocytes Percent Auto 16.3 % (20-40); Mean Corpuscular Hemoglobin 23.6 pg (27.0-33.0); Mean Corpuscular Volume 76.2 fL (80.0-98.0); Mean Platelet Volume 9.4 fL (9.4-12.4); Monocytes Absolute Auto 0.9 X10*3/uL (0.1-1.2); Neutrophils Absolute Auto 9.7 x10*3/uL (2.0-8.3); Neutrophils Percent Auto 72.4 % (45-73); Platelet Count 659 X10*3/uL (160-400); Red Blood Count 6.01 X10*6/uL (4.60-5.80); Red Cell Distribution Width 17.9 % (11.0-16.0); White Blood Count 13.3 X10*3/uL (4.8-10.8)
[2022-06-04 11:21] LABS: Alanine Aminotransferase 18 U/L (0-40); Alkaline Phosphatase 91 U/L (39-117); Anion Gap 14 (12-20); Aspartate Amino Transferase 16 U/L (5-37); Bilirubin Total 0.8 mg/dL (0.0-1.0); Blood Urea Nitrogen 25 mg/dL (9-16); Calcium 9.6 mg/dL (8.4-10.2); Carbon Dioxide 29 mmol/L (22-29); Chloride 104 mmol/L (96-108); Creatinine Clr Calc Pharmacy 51.4; Estimated Glomerular Filt Rate 56; Glucose Random 127 mg/dL (60-115); Potassium 4.9 mmol/L (3.3-5.1); Sodium 142 mmol/L (135-145); Total Protein 6.5 g/dL (6.5-8.0)
--- NOTE | 2022-06-04 11:45 | MHC.HEMONCMA ---
Patient was in for follow up. Clinical summary reviewed and updated, VSS. Labs were drawn. Pt to return in 6 months.
--- NOTE | 2022-06-07 14:28 | MHC.HEMONCMA ---
TIERA on VM for patient to call office back and ask for office MgrPastor [place], concerning possible exposure in clinic on 06/04/22.
--- NOTE | 2022-06-07 14:52 | MHC.HEMONC ---
Called pt. Notified pt of Covid19 positive exposure in the Oncology clinic. Instructed pt to either come get tested at [facility] [place] cost or to do at home test.
--- NOTE | 2022-06-25 08:21 | HE.ONCSEC ---
pt brother called at 8:15am 06/25 to say his brother yesterday 06/24/22.
== END 2022-06-24 | disposition home or self-care (01) ==
LOC: HO.ONC 11:00
PROVIDERS: PCP Internal Medicine; Visit Provider Internal Medicine Medical Oncology
DX: D45 Polycythemia vera (principal); D72.829 Elevated white blood cell count, unspecified; D75.839 Thrombocytosis, unspecified; H54.8 Legal blindness, as defined in USA; Z85.51 Personal history of malignant neoplasm of bladder
CPT/HCPCS: 36415; 80053; 85025; 99213; 99214

== ENCOUNTER → 2022-06-07 11:05 | Outpatient (BNVA) | payer MEDICARE, SELFPAY | PROVIDERS: PCP Internal Medicine; Referring Provider Internal Medicine; Visit Provider Internal Medicine Cardiovascular Disease | DX: I11.0 Hypertensive heart disease with heart failure (principal); I50.30 Unspecified diastolic (congestive) heart failure | CPT/HCPCS: 99212 ==